=== PATIENT | female | born 1940 | race Caucasian/White ===

== ENCOUNTER 2016-07-29 15:44 | Emergency (ER) | payer OTHER | END 2016-07-29 16:24 | disposition left against medical advice (07) | LOC: CED 15:44 | DX: R10.32 Left lower quadrant pain (principal); Z53.8 Procedure and treatment not carried out for other reasons ==

== ENCOUNTER 2016-07-29 16:40 | Emergency (ER) | payer OTHER ==
[2016-07-29] MEDS ORDERED: NS 1,000 ML IV ONE (16:53)
[2016-07-29 17:24] VITALS: RESP 16
[2016-07-29 17:33] LABS: % IMMATURE GRANULYOCYTES 0.2 % (0.0-1.1); ABSOLUTE IMMATURE GRANULOCYTES 0.02 10^3/uL (0.00-0.10); ADD DIFF? NO; ADD MORPH? NO; ADD SCAN? NO; ATYPICAL LYMPHOCYTE FLAG 0 (0-99); FRAGMENT RBC FLAG 0 (0-99); HEMATOCRIT 36.8 % (38.0-47.0); LEFT SHIFT FLG 0 (0-99); LIPEMIA HEMOLYSIS FLAG 80 (0-99); MEAN CELL HEMOGLOBIN 30.6 pg (27.9-34.1); MEAN CELL HEMOGLOBIN CONCENTR. 32.6 g/dL (32.4-36.7); MEAN CELL VOLUME 93.9 fL (81.5-99.8); MEAN PLATELET VOLUME 9.3 fL (8.7-11.7); PLATELET CLUMPS FLAG 0 (0-99); PLATELET COUNT 426 10^3/uL (150-400); RED BLOOD CELL COUNT 3.92 10^6/uL (4.18-5.33); RED CELL DISTRIBUTION WIDTH 14.9 % (11.5-15.2)
[2016-07-29 17:46] LABS: COLOR YELLOW; LEUKOCYTE ESTERASE,URINE 2+ (NEGATIVE); NITRITE,URINE NEGATIVE (NEGATIVE)
[2016-07-29 17:48] LABS: ALANINE AMINOTRANSFERASE 28 IU/L (9-52); ALBUMIN 3.8 g/dL (3.5-5.0); ALKALINE PHOSPHATASE 85 IU/L (38-126); ANION GAP 14 mEq/L (8-16); ASPARTATE AMINOTRANSFERASE 18 IU/L (14-46); BILIRUBIN,TOTAL 1.2 mg/dL (0.1-1.4); BILIRUBIN-CONJUGATED 0.3 mg/dL (0.0-0.5); BILIRUBIN-UNCONJUGATED 0.9 mg/dL (0.0-1.1); CALCIUM 8.2 mg/dL (8.5-10.4); CARBON DIOXIDE 26 mEq/l (22-31); CHLORIDE 102 mEq/L (97-110); CREATININE 1.4 mg/dL (0.6-1.0); GLOMERULAR FILTRATION RATE 37; GLUCOSE 79 mg/dL (70-100); POTASSIUM 3.7 mEq/L (3.5-5.2); SODIUM 142 mEq/L (134-144); TOTAL PROTEIN 6.4 g/dL (6.3-8.2)
[2016-07-29 17:55] LABS: MUCUS TRACE /lpf (NONE-1+)
--- NOTE | 2016-07-29 18:22 | EDPHY ---
H & P Stated Complaint: lower abd pain x 2 days Time Seen by Provider: 07/29/16 16:52 HPI/ROS: CHIEF COMPLAINT: Lower abdominal pain HISTORY OF PRESENT ILLNESS: The patient presents to the emergency department with a 2 day history of left lower quadrant pain. The patient does report some change in the character of her bowel movements but denies constipation or diarrhea. The patient denies dysuria. She has no complaints of nausea vomiting or fever. She denies having a prior history of the symptoms. The patient does have a history of diabetes. She also reports she has a gastric mass which is being followed as an outpatient by Dr. Hung Powell. She apparently is not felt to be a good surgical candidate secondary to her abdominal obesity and pannus ulcers. The patient denies abnormalities with her prior colonoscopies. The patient reports her pain is mild to moderate in nature. It is worsened with movement and deep palpation. REVIEW OF SYSTEMS: A comprehensive 10 point review of systems is otherwise negative aside from elements mentioned in the history of present illness. Source: Patient Exam Limitations: No limitations - Personal History Current Tetanus/Diphtheria Vaccine: Yes Current Tetanus Diphtheria and Acellular Pertussis (TDAP): Yes Tetanus Vaccine Date: within 10 yrs - Medical/Surgical History Hx Asthma: Yes Hx Chronic Respiratory Disease: No Hx Diabetes: Yes Hx Cardiac Disease: Yes Hx Renal Disease: No Hx Cirrhosis: No Hx Alcoholism: No Hx HIV/AIDS: No Hx Splenectomy or Spleen Trauma: No Other PMH: SEPSIS, CELLULITIS, DIABETES, CHF - Social History Smoking Status: Former smoker - Physical Exam Exam: General Appearance: Alert, no distress Eyes: Pupils equal and round no pallor or injection ENT, Mouth: Mucous membranes moist Respiratory: There are no retractions, lungs are clear to auscultation Cardiovascular: Regular rate and rhythm Gastrointestinal: Tenderness to palpation in the left lower quadrant Neurological: A&O, normal motor function, normal sensory exam, normal cranial nerves Skin: Warm and dry, no rashes Musculoskeletal: Neck is supple nontender Extremities: symmetrical, full range of motion Constitutional: Initial Vital Signs Temperature (C) 36.6 C 07/29/16 16:47 Heart Rate 104 H 07/29/16 16:47 Respiratory Rate 17 07/29/16 16:47 Blood Pressure 88/41 L 07/29/16 16:47 O2 Sat (%) 89 L 07/29/16 16:47 O2 Delivery Mode Room Air Allergies/Adverse Reactions: iodine [Iodine] Allergy (Intermediate, Verified 07/29/16 16:45) UNSURE Penicillins Allergy (Intermediate, Verified 07/29/16 16:45) Rash cephalexin monohydrate [From Keflex] Allergy (Verified 07/29/16 16:45) Home Medications: Medication Instructions Recorded Albuterol Hfa Anes Only [Proair 2 puffs IH BID 10/27/15 Hfa Icu (*)] Atorvastatin Calcium [Lipitor 40 40 mg PO HS 10/27/15 mg (*)] Calcium Carb W/Vit D [Calcium Carb 500 mg PO DAILY 10/27/15 W/Vit D 500/200 (*)] FLUTICASONE/SALMETEROL [ADVAIR HFA 1 puffs IH BID 10/27/15 230-21 MCG INHALER] Furosemide [Lasix 40 MG (*)] 40 mg PO DAILY 10/27/15 Insulin Glargine [Lantus 100 15 - 25 units SC BID 10/27/15 UNITS/ML (*)] Insulin Lispro [Humalog] 0 - 15 units SQ TIDMEAL 10/27/15 Lansoprazole [Prevacid] 30 mg PO BIDMEAL 10/27/15 Metolazone [Zaroxolyn] 2.5 mg PO DAILY 10/27/15 Verapamil ER [[place] SR/ER 180MG 180 mg PO BID 10/27/15 (*)] Warfarin Sodium [Coumadin 5MG (*)] 5 mg PO SUMOWETHSA@16 10/27/15 Warfarin Sodium [Coumadin 5MG (*)] 7.5 mg PO TUFR@16 10/27/15 metFORMIN HCL [Glucophage 500 mg 500 mg PO BIDMEAL 10/27/15 (*)] predniSONE 1 mg PO DAILY 10/27/15 predniSONE 5 mg PO DAILY 10/27/15 Colchicine [Colchicine (*)] 0.6 mg PO BID #60 ea 10/28/15 Hydrocodone/APAP 5/325 [[place] 1 - 2 each PO Q6 PRN #20 tab 07/29/16 5/325] Ondansetron Odt [Zofran Odt] 4 mg PO Q4PRN PRN #20 tab 07/29/16 levOFLOXACIN [Levaquin] 500 mg PO DAILY #10 tablet 07/29/16 metroNIDAZOLE [Flagyl 500 mg (RX)] 500 mg PO TID #30 tab 07/29/16 Medical Decision Making - Diagnostics Imaging: CT abdomen pelvis without contrast: Sigmoid diverticulitis noted, mild in nature, no perforation or obstruction. Study results reported to me by Dr. Darien Sebastian. ED Course/Re-evaluation: The patient presents to the ED with 2 days of left lower quadrant pain. She is afebrile and well-appearing. On exam she had minimal tenderness to palpation in her right lower quadrant. The patient did undergo a CT scan of the abdomen pelvis for evaluation of this symptom. It does demonstrate mild diverticulitis without perforation or abscess. Patient has no evidence of a abdominal aortic aneurysm or other intra-abdominal abnormality. The patient is noted to have some mild pyuria but has no subjective complaints of dysuria or fever. The patient did receive Levaquin and Flagyl in the emergency department. She is currently on Coumadin. The patient would like to treat her symptoms an outpatient. I do feel this is reasonable based upon her CT findings. The patient has been instructed she should return to the ED immediately for increasing pain, inability to tolerate her antibiotics, high fever or other concerns. Additionally, I have asked the patient to follow up with the anticoagulation clinic for a recheck of her INR this week. Differential Diagnosis: Differential diagnosis considered includes diverticulitis, perforation, abscess , abdominal aortic aneurysm, urinary tract infection - Data Points Laboratory Results: Laboratory Results 07/29/16 17:15 07/29/16 17:15 07/29/16 17:15 WBC 8.27 10^3/uL (3.80-9.50) RBC 3.92 L 10^6/uL (4.18-5.33) Hgb 12.0 L g/dL (12.6-16.3) Hct 36.8 L % (38.0-47.0) MCV 93.9 fL (81.5-99.8) MCH 30.6 pg (27.9-34.1) MCHC 32.6 g/dL (32.4-36.7) RDW 14.9 % (11.5-15.2) Plt Count 426 H 10^3/uL (150-400) MPV 9.3 fL (8.7-11.7) Neut % (Auto) 82.6 H % (39.3-74.2) Lymph % (Auto) 9.8 L % (15.0-45.0) [place] % (Auto) 6.7 % (4.5-13.0) Eos % (Auto) 0.5 L % (0.6-7.6) Baso % (Auto) 0.2 L % (0.3-1.7) Nucleat RBC Rel Count 0.0 % (0.0-0.2) Absolute Neuts (auto) 6.83 H 10^3/uL (1.70-6.50) Absolute Lymphs (auto) 0.81 L 10^3/uL (1.00-3.00) Absolute Monos (auto) 0.55 10^3/uL (0.30-0.80) Absolute Eos (auto) 0.04 10^3/uL (0.03-0.40) Absolute Basos (auto) 0.02 10^3/uL (0.02-0.10) Absolute Nucleated RBC 0.00 10^3/uL (0-0.01) Immature Gran % 0.2 % (0.0-1.1) Immature Gran # 0.02 10^3/uL (0.00-0.10) PT Pending INR Pending Sodium 142 mEq/L (134-144) Potassium 3.7 mEq/L (3.5-5.2) Chloride 102 mEq/L (97-110) Carbon Dioxide 26 mEq/l (22-31) Anion Gap 14 mEq/L (8-16) BUN 50 H mg/dL (7-23) Creatinine 1.4 H mg/dL (0.6-1.0) Estimated GFR 37 Glucose 79 mg/dL (70-100) Calcium 8.2 L mg/dL (8.5-10.4) Total Bilirubin 1.2 mg/dL (0.1-1.4) Conjugated Bilirubin 0.3 mg/dL (0.0-0.5) Unconjugated Bilirubin 0.9 mg/dL (0.0-1.1) AST 18 IU/L (14-46) ALT 28 IU/L (9-52) Alkaline Phosphatase 85 IU/L (38-126) Total Protein 6.4 g/dL (6.3-8.2) Albumin 3.8 g/dL (3.5-5.0) Lipase 143.0 IU/L (23-300) Urine Color YELLOW Urine Appearance CLEAR Urine pH 5.0 (5.0-7.5) Ur Specific [place] 1.009 (1.002-1.030) Urine Protein NEGATIVE (NEGATIVE) Urine Ketones NEGATIVE (NEGATIVE) Urine Blood 1+ H (NEGATIVE) Urine Nitrate NEGATIVE (NEGATIVE) Urine Bilirubin NEGATIVE (NEGATIVE) Urine Urobilinogen NEGATIVE EU (0.2-1.0) Ur Leukocyte Esterase 2+ H (NEGATIVE) Urine RBC 1-3 /hpf (0-3) Urine WBC 10-15 H /hpf (0-3) Ur Epithelial Cells TRACE /lpf (NONE-1+) Hyaline Casts 5-15 /lpf (0-1) Urine Mucus TRACE /lpf (NONE-1+) Ur Culture Indicated? INDICATED H (NI) Urine Glucose NEGATIVE (NEGATIVE) Medications Given: Discontinued Medications Sodium Chloride (Ns) 1,000 mls @ 0 mls/hr IV ONCE ONE PRN Reason: Wide Open Stop: 07/29/16 16:54 Last Admin: 07/29/16 18:52 Dose: Not Given Levofloxacin (Levaquin) 500 mg PO EDNOW ONE PRN Reason: Protocol Stop: 07/29/16 18:39 Last Admin: 07/29/16 18:50 Dose: 500 mg Metronidazole (Flagyl) 500 mg PO EDNOW ONE PRN Reason: Protocol Stop: 07/29/16 18:39 Last Admin: 07/29/16 18:50 Dose: 500 mg Departure - Departure Disposition: Home, Routine, Self-Care Clinical Impression: Acute diverticulitis Condition: Good Instructions: Diverticulitis (ED) Additional Instructions: 1. Please take antibiotics as directed. You will be on antibiotics for a total of 10 days. 2. Please return to the ED for worsening pain, high fever, inability to tolerate your antibiotics or other concerns. Sometimes people with diverticulitis to have to be hospitalized for IV therapy. Sometimes diverticulitis can progress to a more serious condition such as an abscess or perforation. We see no evidence of this based upon your CT scan today. However it is imperative you return to the ED immediately for any change or worsening symptoms. 3. Because you are on antibiotics this can affect the level of your warfarin. Please contact the anticoagulation Clinic or your primary care provider Dr. Monica Cade on Saturday or Saturday of this week to make arrangements to have your warfarin level rechecked. 4. Mayer as needed for severe pain. Referrals: Kathrine Cade MD [Primary Care Provider] - As per Instructions Prescriptions: metroNIDAZOLE [Flagyl 500 mg (RX)] 500 mg PO TID #30 tab levOFLOXACIN [Levaquin] 500 mg PO DAILY #10 tablet Hydrocodone/APAP 5/325 [[place] 5/325] 1 - 2 each PO Q6 PRN #20 tab PRN Reason: for pain Ondansetron Odt [Zofran Odt] 4 mg PO Q4PRN PRN #20 tab PRN Reason: For Nausea
--- NOTE | 2016-07-29 18:35 | CT ---
CT Abdomen and Pelvis Without Contrast dated July 29, 2016 Indication: Left lower quadrant pain. Evaluate for appendicitis. Technique: The abdomen and pelvis was scanned with 5-mm thick helically acquired slices without IV or oral contrast. Patient has an IV contrast ALLERGY. Dose reduction techniques were utilized. Comparison: March 27, 2016. Findings: A 10-cm segment of the sigmoid colon has mild concentric wall thickening and pericolonic ed narinder contiguous with numerous sigmoid diverticula. No free fluid, abscess, or pneumoperitoneum. Bowel pattern is otherwise normal. Appendix is normal. No obstruction or adynamic ileus. The noncontrast liver, spleen, pancreas, contracted gallbladder, adrenal glands, and kidneys are norm al. No nephrolithiasis or hydroureteronephrosis. The urinary bladder is nearly completely empty. The uterus is normal size. No adnexal mass. The abdominal aorta is normal caliber with moderate calcified plaque. Extensive visceral arterial alejandro cification is present, indicative of underlying diabetes mellitus. A small umbilical hernia containin g only fat is unchanged since March 2016. Multilevel severe degenerative disk and facet arthropathy. No fracture or bone lesion. Lung bases are clear. Heart size is normal with extensive calcified coronary plaque. Impression: 1. Mild sigmoid diverticulitis. No abscess or evidence of perforation. 2. No intraabdominal mass or lymphadenopathy. 3. Extensive vascular disease. Comment: Results were called to Dr. Willian Bedoya at 1825 hours on July 29, 2016.
[2016-07-29] MEDS ORDERED: metroNIDAZOLE 500 MG TAB PO ONE (18:38)
[2016-07-29 18:51] VITALS: BP 99/67; PULSE 103; O2SAT 96
[2016-07-29 18:59] LABS: INR 2.6 (0.83-1.16); PROTIME(PATIENT) 28.1 SEC (12.0-15.0)
[2016-07-29] MEDS ORDERED: ONDANSETRON 4MG PREPACK#2 BTL TAKEHOME ONE (19:20)
[2016-07-29] MEDS ORDERED: HYDROCOD/APAP 5/325 PREPACK#6 BTL TAKEHOME ONE (19:20)
[2016-07-29 19:28] VITALS: TEMP 98.8
== END 2016-07-29 19:26 | disposition home or self-care (01) ==
DX: K57.92 Diverticulitis of intestine, part unspecified, without perforation or abscess without bleeding (principal); J45.909 Unspecified asthma, uncomplicated; E11.9 Type 2 diabetes mellitus without complications; I50.9 Heart failure, unspecified; Z79.01 Long term (current) use of anticoagulants; Z87.891 Personal history of nicotine dependence; Z79.4 Long term (current) use of insulin

== ENCOUNTER 2016-09-09 15:33 | Emergency (ER) | payer OTHER ==
[2016-09-09 15:45] VITALS: O2SAT 96
[2016-09-09] MEDS ORDERED: NS 1,000 ML IV ONE (16:10)
--- NOTE | 2016-09-09 16:15 | EDPHY ---
H & P Stated Complaint: Diarrhea x 4 days;started after taking colchicine;has hx diverticulitis Time Seen by Provider: 09/09/16 15:55 HPI/ROS: CHIEF COMPLAINT: Diarrhea HISTORY OF PRESENT ILLNESS: The patient is a 76-year-old female who comes to the emergency department complaining of diarrhea for 4 days. She states that she had 5 episodes of diarrhea yesterday. No fever. Nonbloody. She has diabetes as well as atrial fibrillation on Coumadin and morbid obesity. She was seen here 6 weeks ago and diagnosed with diverticulitis and started on Levaquin and Flagyl. Her diverticulitis improved but she states that she had diarrhea for the entire 10 days that she was taking the antibiotics. It resolved after she discontinued them. She has not been vomiting. She denies abdominal pain or chest pain. REVIEW OF SYSTEMS: Constitutional: denies: chills, fever, recent illness, recent injury EENTM: denies: blurred vision, double vision, nose congestion Respiratory: denies: cough, shortness of breath Cardiac: denies: chest pain, irregular heart rate, lightheadedness, palpitations Gastrointestinal/Abdominal: See HPI denies: abdominal pain, nausea, vomiting, blood streaked stools Genitourinary: denies: dysuria, frequency, hematuria, pain Musculoskeletal: denies: joint pain, muscle pain Skin: denies: lesions, rash, jaundice, bruising Neurological: denies: headache, numbness, paresthesia, tingling, dizziness, weakness Hematologic/Lymphatic: denies: blood clots, easy bleeding, easy bruising Immunologic/allergic: denies: HIV/AIDS, transplant EXAM: GENERAL: Very talkative, Well-appearing, morbidly obese and in no acute distress. HEAD: Atraumatic, normocephalic. EYES: Pupils equal round and reactive to light, extraocular movements intact, sclera anicteric, conjunctiva are normal. ENT: TMs normal, nares patent, oropharynx clear without exudates. Moist mucous membranes. NECK: Normal range of motion, supple without lymphadenopathy or JVD. LUNGS: Breath sounds clear to auscultation bilaterally and equal. No wheezes rales or rhonchi. HEART: Regular rate and rhythm without murmurs, rubs or gallops. ABDOMEN: Morbidly obese, diabetic stasis ulcers over pannus, no tenderness on examination BACK: No CVA tenderness, no spinal tenderness, step-offs or deformities EXTREMITIES: Normal range of motion, no pitting or edema. No clubbing or cyanosis. NEUROLOGICAL: Cranial nerves II through XII grossly intact. Normal speech, normal gait. 5/5 strength, normal movement in all extremities, normal sensation PSYCH: Normal mood, normal affect. SKIN: Warm, dry, normal turgor, no visible rashes or lesions several small diabetic type ulcers in her pannus, Well cared for. Source: Patient Exam Limitations: No limitations - Personal History Current Tetanus Diphtheria and Acellular Pertussis (TDAP): Yes Tetanus Vaccine Date: within 10 yrs - Medical/Surgical History Hx Asthma: Yes Hx Chronic Respiratory Disease: No Hx Diabetes: Yes Hx Cardiac Disease: Yes Hx Renal Disease: No Hx Cirrhosis: No Hx Alcoholism: No Hx HIV/AIDS: No Hx Splenectomy or Spleen Trauma: No Other PMH: SEPSIS, CELLULITIS, DIABETES, CHF. obesity, gout, diverticulitis - Family History Significant Family History: No pertinent family hx - Social History Smoking Status: Never smoked Alcohol Use: None Drug Use: None Constitutional: Initial Vital Signs Temperature (C) 36.8 C 09/09/16 15:37 Heart Rate 58 L 09/09/16 15:37 Respiratory Rate 18 09/09/16 15:37 Blood Pressure 118/91 H 09/09/16 15:37 O2 Sat (%) 96 09/09/16 15:37 O2 Delivery Mode Room Air Allergies/Adverse Reactions: iodine [Iodine] Allergy (Intermediate, Verified 09/09/16 15:37) UNSURE Penicillins Allergy (Intermediate, Verified 09/09/16 15:37) Rash cephalexin monohydrate [From Keflex] Allergy (Verified 09/09/16 15:37) Home Medications: Medication Instructions Recorded Albuterol Hfa Anes Only [Proair 2 puffs IH BID 10/27/15 Hfa Icu (*)] Atorvastatin Calcium [Lipitor 40 40 mg PO HS 10/27/15 mg (*)] Calcium Carb W/Vit D [Calcium Carb 500 mg PO DAILY 10/27/15 W/Vit D 500/200 (*)] FLUTICASONE/SALMETEROL [ADVAIR HFA 1 puffs IH BID 10/27/15 230-21 MCG INHALER] Furosemide [Lasix 40 MG (*)] 40 mg PO DAILY 10/27/15 Insulin Glargine [Lantus 100 15 - 25 units SC BID 10/27/15 UNITS/ML (*)] Insulin Lispro [Humalog] 0 - 15 units SQ TIDMEAL 10/27/15 Lansoprazole [Prevacid] 30 mg PO BIDMEAL 10/27/15 Metolazone [Zaroxolyn] 2.5 mg PO DAILY 10/27/15 Verapamil ER [Calan SR/ER 180MG 180 mg PO BID 10/27/15 (*)] Warfarin Sodium [Coumadin 5MG (*)] 5 mg PO SUMOWETHSA@16 10/27/15 Warfarin Sodium [Coumadin 5MG (*)] 7.5 mg PO TUFR@16 10/27/15 metFORMIN HCL [Glucophage 500 mg 500 mg PO BIDMEAL 10/27/15 (*)] predniSONE 1 mg PO DAILY 10/27/15 predniSONE 5 mg PO DAILY 10/27/15 Colchicine [Colchicine (*)] 0.6 mg PO BID #60 ea 10/28/15 Hydrocodone/APAP 5/325 [[place] 1 - 2 each PO Q6 PRN #20 tab 07/29/16 5/325] Ondansetron Odt [Zofran Odt] 4 mg PO Q4PRN PRN #20 tab 07/29/16 levOFLOXACIN [Levaquin] 500 mg PO DAILY #10 tablet 07/29/16 metroNIDAZOLE [Flagyl 500 mg (RX)] 500 mg PO TID #30 tab 07/29/16 Medical Decision Making ED Course/Re-evaluation: The patient feels much better. She has not yet been able to have a bowel movement here in the emergency department. Her lab work is reassuring. Her abdominal exam remains benign. She is afebrile. White blood cell count is normal. She does appear slightly dehydrated but has received IV fluids. She is eager to go home. We have given her instructions for collecting stool sample at home. She will follow up tomorrow with her regular doctor as planned. The patient was able to provide a stool sample here. We will send to the lab. Otherwise she is eager to leave. We discussed indications for returning. Differential Diagnosis: Partial list of the Differential diagnosis considered include but were not limited to; diarrhea, C difficile and although unlikely based on the history and physical exam, I also considered obstruction, ischemia, diverticulitis, hemorrhage. I discussed these differential diagnoses and the plan with the patient as well as the usual and expected course. The patient understands that the diagnosis is provisional and that in medicine we are not always correct and that further workup is often warranted. Usual and customary warnings were given. All of the patient's questions were answered. The patient was instructed to return to the emergency department should the symptoms at all worsen or return, otherwise to followup with the physician as we discussed. - Data Points Laboratory Results: Laboratory Results 09/09/16 16:50 09/09/16 16:50 09/09/16 09/09/16 09/09/16 16:50 16:50 16:50 WBC 5.86 10^3/uL 10^3/uL (3.80-9.50) RBC 4.11 10^6/uL L 10^6/uL (4.18-5.33) Hgb 12.7 g/dL g/dL (12.6-16.3) Hct 38.8 % % (38.0-47.0) MCV 94.4 fL fL (81.5-99.8) MCH 30.9 pg pg (27.9-34.1) MCHC 32.7 g/dL g/dL (32.4-36.7) RDW 15.4 % H % (11.5-15.2) Plt Count 433 10^3/uL H 10^3/uL (150-400) MPV 9.2 fL fL (8.7-11.7) Neut % (Auto) 72.8 % % (39.3-74.2) Lymph % (Auto) 17.1 % % (15.0-45.0) [place] % (Auto) 8.4 % % (4.5-13.0) Eos % (Auto) 0.9 % % (0.6-7.6) Baso % (Auto) 0.5 % % (0.3-1.7) Nucleat RBC Rel Count 0.0 % % (0.0-0.2) Absolute Neuts (auto) 4.27 10^3/uL 10^3/uL (1.70-6.50) Absolute Lymphs (auto) 1.00 10^3/uL 10^3/uL (1.00-3.00) Absolute Monos (auto) 0.49 10^3/uL 10^3/uL (0.30-0.80) Absolute Eos (auto) 0.05 10^3/uL 10^3/uL (0.03-0.40) Absolute Basos (auto) 0.03 10^3/uL 10^3/uL (0.02-0.10) Absolute Nucleated RBC 0.00 10^3/uL 10^3/uL (0-0.01) Immature Gran % 0.3 % % (0.0-1.1) Immature Gran # 0.02 10^3/uL 10^3/uL (0.00-0.10) PT 33.3 SEC H SEC (12.0-15.0) INR 3.21 H (0.83-1.16) APTT 36.0 SEC SEC (23.0-38.0) Sodium 142 mEq/L mEq/L (134-144) Potassium 3.6 mEq/L mEq/L (3.5-5.2) Chloride 106 mEq/L mEq/L (97-110) Carbon Dioxide 23 mEq/l mEq/l (22-31) Anion Gap 13 mEq/L mEq/L (8-16) BUN 36 mg/dL H mg/dL (7-23) Creatinine 1.3 mg/dL H mg/dL (0.6-1.0) Estimated GFR 40 Glucose 156 mg/dL H mg/dL (70-100) Calcium 8.7 mg/dL mg/dL (8.5-10.4) Total Bilirubin 1.0 mg/dL mg/dL (0.1-1.4) Conjugated Bilirubin 0.4 mg/dL mg/dL (0.0-0.5) Unconjugated Bilirubin 0.6 mg/dL mg/dL (0.0-1.1) AST 20 IU/L IU/L (14-46) ALT 32 IU/L IU/L (9-52) Alkaline Phosphatase 90 IU/L IU/L (38-126) Total Protein 6.2 g/dL L g/dL (6.3-8.2) Albumin 3.4 g/dL L g/dL (3.5-5.0) Lipase 115.0 IU/L IU/L (23-300) Medications Given: Discontinued Medications Sodium Chloride (Ns) 1,000 mls @ 0 mls/hr IV ONCE ONE PRN Reason: Wide Open Stop: 09/09/16 16:11 Last Admin: 09/09/16 16:53 Dose: 1,000 mls Departure - Departure Disposition: Home, Routine, Self-Care Clinical Impression: Diarrhea Qualifiers: Diarrhea type: unspecified type Qualified Code(s): R19.7 - Diarrhea, unspecified Condition: Fair Instructions: Acute Diarrhea (ED) Additional Instructions: Bring a stool sample back for analysis as instructed. Referrals: Kathrine Cade MD [Primary Care Provider] - As per Instructions
[2016-09-09 16:57] LABS: % IMMATURE GRANULYOCYTES 0.3 % (0.0-1.1); ABSOLUTE IMMATURE GRANULOCYTES 0.02 10^3/uL (0.00-0.10); ADD DIFF? NO; ADD MORPH? NO; ADD SCAN? NO; ATYPICAL LYMPHOCYTE FLAG 10 (0-99); FRAGMENT RBC FLAG 0 (0-99); HEMATOCRIT 38.8 % (38.0-47.0); HEMOGLOBIN 12.7 g/dL (12.6-16.3); LEFT SHIFT FLG 0 (0-99); LIPEMIA HEMOLYSIS FLAG 80 (0-99); MEAN CELL HEMOGLOBIN 30.9 pg (27.9-34.1); MEAN CELL HEMOGLOBIN CONCENTR. 32.7 g/dL (32.4-36.7); MEAN CELL VOLUME 94.4 fL (81.5-99.8); MEAN PLATELET VOLUME 9.2 fL (8.7-11.7); PLATELET CLUMPS FLAG 10 (0-99); PLATELET COUNT 433 10^3/uL (150-400); RED BLOOD CELL COUNT 4.11 10^6/uL (4.18-5.33); RED CELL DISTRIBUTION WIDTH 15.4 % (11.5-15.2)
[2016-09-09 17:16] LABS: INR 3.21 (0.83-1.16); PROTIME(PATIENT) 33.3 SEC (12.0-15.0)
[2016-09-09 17:22] LABS: ALANINE AMINOTRANSFERASE 32 IU/L (9-52); ALBUMIN 3.4 g/dL (3.5-5.0); ALKALINE PHOSPHATASE 90 IU/L (38-126); ANION GAP 13 mEq/L (8-16); ASPARTATE AMINOTRANSFERASE 20 IU/L (14-46); BILIRUBIN-CONJUGATED 0.4 mg/dL (0.0-0.5); BILIRUBIN-UNCONJUGATED 0.6 mg/dL (0.0-1.1); CALCIUM 8.7 mg/dL (8.5-10.4); CARBON DIOXIDE 23 mEq/l (22-31); CHLORIDE 106 mEq/L (97-110); CREATININE 1.3 mg/dL (0.6-1.0); GLOMERULAR FILTRATION RATE 40; GLUCOSE 156 mg/dL (70-100); POTASSIUM 3.6 mEq/L (3.5-5.2); SODIUM 142 mEq/L (134-144); TOTAL PROTEIN 6.2 g/dL (6.3-8.2)
[2016-09-09 18:46] VITALS: BP 123/89; PULSE 86; RESP 20; TEMP 98.6
== END 2016-09-09 18:36 | disposition home or self-care (01) ==
DX: R19.7 Diarrhea, unspecified (principal); J45.909 Unspecified asthma, uncomplicated; E11.9 Type 2 diabetes mellitus without complications; I50.9 Heart failure, unspecified; Z79.4 Long term (current) use of insulin; Z79.01 Long term (current) use of anticoagulants

== ENCOUNTER 2016-11-02 15:13 | Inpatient (IN) | payer OTHER ==
--- NOTE | 2016-11-02 15:30 | EDPHY ---
H & P Stated Complaint: Weakness x 2 weeks and ab pain Source: Patient, Family - Personal History Current Tetanus Diphtheria and Acellular Pertussis (TDAP): Yes Tetanus Vaccine Date: within 10 yrs - Medical/Surgical History Hx Asthma: Yes Hx Chronic Respiratory Disease: No Hx Diabetes: Yes Hx Cardiac Disease: Yes Hx Renal Disease: No Hx Cirrhosis: No Hx Alcoholism: No Hx HIV/AIDS: No Hx Splenectomy or Spleen Trauma: No Other PMH: SEPSIS, CELLULITIS, DIABETES, CHF. obesity, gout, diverticulitis - Social History Smoking Status: Never smoked Time Seen by Provider: 11/02/16 15:29 HPI/ROS: CHIEF COMPLAINT: Weakness, diarrhea HISTORY OF PRESENT ILLNESS: This is a 76-year-old female presenting to the emergency department complaining of generalized weakness and diarrhea x2 weeks. Patient also reports she has been dealing with these chronic abdominal wounds without healing, now has drainage and a foul smell. Patient states she has had a decrease in PO intake, she was on Flagyl few weeks ago for diverticulitis flare. Denies any chest pain or shortness of breath REVIEW OF SYSTEMS: Constitutional: Fever Eyes: No visual changes ENT: No sore throat Respiratory: No shortness of breath Cardiac: No chest pain Gastrointestinal: as above Genitourinary: No difficulty hearing with urination Musculoskeletal: No back pain Skin: No rash, chronic abdominal wounds without healing Neurological: No headache or dizziness (Hilda Guerrero) - Physical Exam Exam: General Appearance: Alert, no distress. Eyes: Pupils equal and round no pallor or injection. ENT, Mouth: Mucous membranes moist. Respiratory: There are no retractions, lungs are clear to auscultation. Cardiovascular: Regular rate and rhythm. Gastrointestinal: Abdomen is soft, tenderness left lower quadrant right lower quadrant to opened wounds nonhealing erythema warm to touch malodorous drainage bowel sounds hyperactive Neurological: No focal deficit Skin: Warm and dry, no rashes. Musculoskeletal: Neck is supple nontender. Extremities: symmetrical, full range of motion. Psychiatric: Patient is oriented X 3, there is no agitation. (Hilda Guerrero) Constitutional: Initial Vital Signs Temperature (C) 38.0 C 11/02/16 15:14 Heart Rate 120 H 11/02/16 15:14 Respiratory Rate 14 11/02/16 15:14 Blood Pressure 107/88 H 11/02/16 15:14 O2 Sat (%) 92 04/14/17 15:14 O2 Delivery Mode Room Air Allergies/Adverse Reactions: iodine [Iodine] Allergy (Intermediate, Verified 09/09/16 15:37) UNSURE Penicillins Allergy (Intermediate, Verified 09/09/16 15:37) Rash cephalexin monohydrate [From Keflex] Allergy (Verified 09/09/16 15:37) Home Medications: Medication Instructions Recorded Albuterol Hfa Anes Only [Proair 2 puffs IH BID 10/27/15 Hfa Icu (*)] Atorvastatin Calcium [Lipitor 40 40 mg PO HS 10/27/15 mg (*)] Calcium Carb W/Vit D [Calcium Carb 500 mg PO DAILY 10/27/15 W/Vit D 500/200 (*)] FLUTICASONE/SALMETEROL [ADVAIR HFA 1 puffs IH BID 10/27/15 230-21 MCG INHALER] Furosemide [Lasix 40 MG (*)] 40 mg PO DAILY 10/27/15 Insulin Glargine [Lantus 100 15 - 25 units SC BID 10/27/15 UNITS/ML (*)] Insulin Lispro [Humalog] 0 - 15 units SQ TIDMEAL 10/27/15 Lansoprazole [Prevacid] 30 mg PO BIDMEAL 10/27/15 Metolazone [Zaroxolyn] 2.5 mg PO DAILY 10/27/15 Verapamil ER [Calan SR/ER 180MG 180 mg PO BID 10/27/15 (*)] Warfarin Sodium [Coumadin 5MG (*)] 5 mg PO SUMOWETHSA@16 10/27/15 Warfarin Sodium [Coumadin 5MG (*)] 7.5 mg PO TUFR@16 10/27/15 metFORMIN HCL [Glucophage 500 mg 500 mg PO BIDMEAL 10/27/15 (*)] predniSONE 1 mg PO DAILY 10/27/15 predniSONE 5 mg PO DAILY 10/27/15 Colchicine [Colchicine (*)] 0.6 mg PO BID #60 ea 10/28/15 Hydrocodone/APAP 5/325 [[place] 1 - 2 each PO Q6 PRN #20 tab 07/29/16 5/325] Ondansetron Odt [Zofran Odt] 4 mg PO Q4PRN PRN #20 tab 07/29/16 levOFLOXACIN [Levaquin] 500 mg PO DAILY #10 tablet 07/29/16 metroNIDAZOLE [Flagyl 500 mg (RX)] 500 mg PO TID #30 tab 07/29/16 Medical Decision Making - Diagnostics Imaging: Imaging Impressions Chest X-Ray 11/02/16 15:35 Impression: Moderate cardiac enlargement and central bronchitis. No acute abnormality. Abdomen/Pelvis CT 11/02/16 16:14 Impression: 1. Cellulitis and superficial wounds of the incompletely included large pendulous abdominal pannus. No evidence of abscess on the included images. If clinically indicated, additional images of the lower pannus could be obtained. 2. Chronic atherosclerotic disease. Results discussed with Hilda Guerrero at 4:48 PM. General information for patients regarding this examination can be found at [email or web address]. If you have questions or comments about this report, please contact me at (hospital) or [phone] (cell). Pelvis CT 11/02/16 16:58 Impression: 1. No abscess or fluid collection within the pannus. 2. Extensive cellulitis of the pannus with two shallow ulcers along the right and left low aspects of the pannus. Findings discussed with Emergency Department physician, Francisco J Valdivia MD at 1730 hours November 02, 2016. ED Course/Re-evaluation: 1732: I did see and evaluate this patient this patient is septic. Elevated white count, borderline blood pressure, tachycardic an obvious source of panniculitis with abdominal wounds. CT scan does not show intra-abdominal abscess. She is being resuscitated appropriately here in emergency room lactic is 2.1 initial. She is getting 2600 cc of fluid which is 30 cc/kilogram broad- spectrum antibiotics which includes IV vancomycin and IV Flagyl. She also has dehydrated clinically. He has had diarrhea. I have ordered stool studies. I am managing this patient with Hilda. Patient getting sepsis resuscitation. She will need to go to the step-down unit. She does not require IV pressors at this time. Getting fluid resuscitation broad-spectrum antibiotics trending lactic. Final diagnosis sepsis, panniculitis, chronic abdominal wounds, possible bacteremia, dehydration, tachycardia, acute febrile illness. (Francisco J Valdivia) Discussed plan of care with patient: IV fluids for sepsis, CBC, Chem 7, lactic acid, blood cultures, stool studies, CT abdominal pelvis without contrast due to patient's allergies 1650: Spoke with Dr. Ledezma CT needs to repeat imaging for pannus to rule out any abscess 1655: Spoke with CT control room to re-scanned patient 1730: Consulted with Dr. Valdivia on patient care. CT scan did not show any abscess but panniculitis. Patient will be admitted (Hilda Guerrero) Differential Diagnosis: Differential diagnosis considered but not limited to abdominal abscess, peritonitis and (Hilda Guerrero) - Data Points Laboratory Results: Laboratory Results 11/02/16 15:35 11/02/16 15:35 11/02/16 11/02/16 11/02/16 15:35 15:35 15:35 WBC RBC Hgb Hct MCV MCH MCHC RDW Plt Count MPV Neut % (Auto) Lymph % (Auto) Labette % (Auto) Eos % (Auto) Baso % (Auto) Nucleat RBC Rel Count Absolute Neuts (auto) Absolute Lymphs (auto) Absolute Monos (auto) Absolute Eos (auto) Absolute Basos (auto) Absolute Nucleated RBC Immature Gran % Immature Gran # PT 31.1 SEC H SEC (12.0-15.0) INR 2.95 H (0.83-1.16) APTT 42.8 SEC H SEC (23.0-38.0) VBG Lactic Acid 2.1 mmol/L mmol/L (0.7-2.1) Sodium 136 mEq/L mEq/L (134-144) Potassium 4.1 mEq/L mEq/L (3.5-5.2) Chloride 104 mEq/L mEq/L (97-110) Carbon Dioxide 20 mEq/l L mEq/l (22-31) Anion Gap 12 mEq/L mEq/L (8-16) BUN 28 mg/dL H mg/dL (7-23) Creatinine 1.4 mg/dL H mg/dL (0.6-1.0) Estimated GFR 37 Glucose 157 mg/dL H mg/dL (70-100) Calcium 8.0 mg/dL L mg/dL (8.5-10.4) Total Bilirubin 1.4 mg/dL mg/dL (0.1-1.4) 11/02/16 15:35 WBC 13.70 10^3/uL H 10^3/uL (3.80-9.50) RBC 3.42 10^6/uL L 10^6/uL (4.18-5.33) Hgb 10.1 g/dL L g/dL (12.6-16.3) Hct 31.4 % L % (38.0-47.0) MCV 91.8 fL fL (81.5-99.8) MCH 29.5 pg pg (27.9-34.1) MCHC 32.2 g/dL L g/dL (32.4-36.7) RDW 16.3 % H % (11.5-15.2) Plt Count 251 10^3/uL 10^3/uL (150-400) MPV 9.7 fL fL (8.7-11.7) Neut % (Auto) 90.8 % H % (39.3-74.2) Lymph % (Auto) 4.1 % L % (15.0-45.0) Labette % (Auto) 4.5 % % (4.5-13.0) Eos % (Auto) 0.0 % L % (0.6-7.6) Baso % (Auto) 0.1 % L % (0.3-1.7) Nucleat RBC Rel Count 0.0 % % (0.0-0.2) Absolute Neuts (auto) 12.44 10^3/uL H 10^3/uL (1.70-6.50) Absolute Lymphs (auto) 0.56 10^3/uL L 10^3/uL (1.00-3.00) Absolute Monos (auto) 0.61 10^3/uL 10^3/uL (0.30-0.80) Absolute Eos (auto) 0.00 10^3/uL L 10^3/uL (0.03-0.40) Absolute Basos (auto) 0.02 10^3/uL 10^3/uL (0.02-0.10) Absolute Nucleated RBC 0.00 10^3/uL 10^3/uL (0-0.01) Immature Gran % 0.5 % % (0.0-1.1) Immature Gran # 0.07 10^3/uL 10^3/uL (0.00-0.10) PT INR APTT VBG Lactic Acid Sodium Potassium Chloride Carbon Dioxide Anion Gap BUN Creatinine Estimated GFR Glucose Calcium Total Bilirubin Microbiology Results: MICROBIOLOGY 11/02/16 15:30 Abdomen - Swab Gram Stain - Final Medications Given: Discontinued Medications Acetaminophen (Tylenol) 1,000 mg PO EDNOW ONE Stop: 11/02/16 15:50 Last Admin: 11/02/16 15:59 Dose: 1,000 mg Sodium Chloride (Ns) 2,600 mls @ 5,200 mls/hr 30 ml/kg infuse over 30 min ( 2600 ml) IV EDNOW ONE Stop: 11/02/16 16:11 Last Admin: 11/02/16 15:44 Dose: 2,600 mls Vancomycin HCl 1.5 gm/ (Dextrose) 250 mls @ 166.67 mls/hr IV EDNOW ONE PRN Reason: Protocol Stop: 11/02/16 17:15 Last Admin: 11/02/16 16:22 Dose: 250 mls Metronidazole/Sodium Chloride (Flagyl 500 Mg (Premix)) 100 mls @ 100 mls/hr IV EDNOW ONE PRN Reason: Protocol Stop: 11/02/16 18:19 Last Admin: 11/02/16 18:10 Dose: 100 mls Morphine Sulfate (Morphine) 2 mg IVP EDNOW ONE Stop: 11/02/16 16:48 Last Admin: 11/02/16 17:01 Dose: 2 mg Departure - Departure Disposition: [facility] Acute Clinical Impression: Sepsis Qualifiers: Sepsis type: sepsis due to unspecified organism Qualified Code(s): A41.9 - Sepsis, unspecified organism Condition: Fair
[2016-11-02] MEDS ORDERED: NS 2,600 ML IV ONE (15:42)
[2016-11-02] MEDS ORDERED: VANCOMYCIN 1.5 GM in D5W 250 ML IV ONE (15:46)
[2016-11-02] MEDS ORDERED: ACETAMINOPHEN 500 MG TAB PO ONE (15:49)
[2016-11-02 15:50] LABS: % IMMATURE GRANULYOCYTES 0.5 % (0.0-1.1); ABSOLUTE IMMATURE GRANULOCYTES 0.07 10^3/uL (0.00-0.10); ADD DIFF? NO; ADD MORPH? NO; ADD SCAN? NO; ATYPICAL LYMPHOCYTE FLAG 0 (0-99); FRAGMENT RBC FLAG 0 (0-99); HEMATOCRIT 31.4 % (38.0-47.0); HEMOGLOBIN 10.1 g/dL (12.6-16.3); LEFT SHIFT FLG 80 (0-99); LIPEMIA HEMOLYSIS FLAG 80 (0-99); MEAN CELL HEMOGLOBIN 29.5 pg (27.9-34.1); MEAN CELL HEMOGLOBIN CONCENTR. 32.2 g/dL (32.4-36.7); MEAN CELL VOLUME 91.8 fL (81.5-99.8); MEAN PLATELET VOLUME 9.7 fL (8.7-11.7); PLATELET CLUMPS FLAG 0 (0-99); PLATELET COUNT 251 10^3/uL (150-400); RED BLOOD CELL COUNT 3.42 10^6/uL (4.18-5.33); RED CELL DISTRIBUTION WIDTH 16.3 % (11.5-15.2)
[2016-11-02 16:06] LABS: ANION GAP 12 mEq/L (8-16); BILIRUBIN,TOTAL 1.4 mg/dL (0.1-1.4); CARBON DIOXIDE 20 mEq/l (22-31); CHLORIDE 104 mEq/L (97-110); CREATININE 1.4 mg/dL (0.6-1.0); GLOMERULAR FILTRATION RATE 37; GLUCOSE 157 mg/dL (70-100); POTASSIUM 4.1 mEq/L (3.5-5.2); SODIUM 136 mEq/L (134-144)
[2016-11-02 16:09] LABS: APTT 42.8 SEC (23.0-38.0); INR 2.95 (0.83-1.16); PROTIME(PATIENT) 31.1 SEC (12.0-15.0)
[2016-11-02 16:43] LABS: LACGHOST ORDER
[2016-11-02] MEDS ORDERED: ONDANSETRON 4 MG/2 ML VIAL IVP PRN (20:21)
[2016-11-02] MEDS ORDERED: PROMETHAZINE HCL 25 MG TAB PO PRN (20:21)
[2016-11-02] MEDS ORDERED: HYDROmorphONE/DILAUDID 1 MG/ML SYR IVP PRN (20:21)
[2016-11-02] MEDS ORDERED: ONDANSETRON DISINTEGRATING 4 MG TAB PO PRN (20:21)
[2016-11-02] MEDS ORDERED: LORazepam 0.5 MG TAB PO PRN (20:21)
[2016-11-02] MEDS ORDERED: COLCHICINE 0.6 MG CAP/TAB PO PRN (20:26)
[2016-11-02] MEDS ORDERED: D50W 25 GM/50 ML SYR IVP PRN (20:28)
[2016-11-02] MEDS: oxyCODONE IR 5 MG TAB PO PRN ×2 (20:58→23:17)
[2016-11-02] MEDS: ATORVASTATIN CALCIUM 40 MG TAB PO SCH (20:58)
[2016-11-02] MEDS: INSULIN GLARGINE 100 UNITS/ML SYRINGE SC SCH (21:13)
[2016-11-02 21:56] LABS: COLOR AMBER; LEUKOCYTE ESTERASE,URINE 2+ (NEGATIVE); NITRITE,URINE NEGATIVE (NEGATIVE)
[2016-11-02 22:04] LABS: BACTERIA 2+ /hpf (NONE SEEN); MUCUS TRACE /lpf (NONE-1+); WBC,URINE 50-182 /hpf (0-3)
--- NOTE | 2016-11-02 23:04 | GCON ---
[f rep st] CONSULTATION DATE OF CONSULTATION: 11/02/2016 CHIEF COMPLAINT: Abdominal wounds, weakness, and fevers. HISTORY: This is a 76-year-old female with a past medical history of diabetes, morbid obesity, and panniculitis with chronic abdominal wounds followed by Dr. Umesh Seay, who presents with generalize d weakness, subjective fevers and chills, and generalized malaise for about 2 weeks. The patient no ty this is in the setting of having worsening issues with her chronic abdominal wounds. She is fol lowed by Dr. Seay and has recently undergone treatment with a wound VAC. Apparently she has had su ral courses with wound VACs, most recently completed a 5-day course yesterday. She noted that there was something unusual about the placement of this wound VAC and that seem to be too tight and never really felt quite right. She notes that the wound has been very strong smelling and that she has n ow significant redness surrounding the wound which is not been present in the past. She states that the last time she saw Dr. Seay he felt as if the wounds were healing nicely. She has also had diarr hea for about the last 2 weeks without any abdominal pain or nausea. She recently had similar sympt oms related to diverticulitis and had been on Flagyl at that time. PAST MEDICAL HISTORY: Includes. 1. Diabetes. 2. Morbid obesity. 3. Chronic abdominal wounds in the setting of chronic panniculitis. 4. History of DVT on anticoagulation. 5. Paroxysmal AFib. 6. Severe COPD, steroid dependent. 7. Coronary artery disease. 8. Gout. 9. Chronic kidney disease. FAMILY HISTORY: Parents are . SOCIAL HISTORY: The patient is . She is living independently. She has a prior history of s moking, not for many years. She denies alcohol or illicits. REVIEW OF SYSTEMS: A 10-point review of systems was obtained and was negative except as per HPI. MEDICATIONS: Include. 1. Prednisone. 2. Metformin. 3. Warfarin. 4. Verapamil. 5. Metolazone. 6. Lansoprazole. 7. Insulin. 8. Lasix. 9. Advair. 10. Colchicine. 11. Calcium. 12. Atorvastatin. 13. Albuterol. ALLERGIES: Include penicillin and cephalosporins. PHYSICAL EXAM: VITAL SIGNS: BP 119/62, heart rate 117 respiratory rate 20, O2 saturations 99% on r oom air, temperature is 36.8. GENERAL APPEARANCE: This is an obese female. She is awake and alert. She is in no acute distress. EYES: Anicteric. HEENT: Oropharynx is clear. The alicia ent has a very large neck. CARDIOVASCULAR: Tachycardic, regular, no MRG. PULMONARY: Decreased br eath sounds secondary to body habitus, normal work of breathing. ABDOMEN: Obese, soft, nontender. There is a confluent area of erythema with 2 deep ulcerations in her lower abdominal region with pu rulent discharge and induration surrounding the wounds. EXTREMITIES: Trace bilateral lower extremi ty edema. SKIN: Other than abdominal exam as above, warm, dry, well perfused. NEURO/PSYCH: Orien zack, appropriate, pleasant. CLINICAL DATA: White blood cell count of 13.7, hematocrit of 31.4, platelets of 251. INR is 2.95. Creatinine of 1.4 which is essentially baseline. Glucose of 157. Urinalysis showing 2+ leukocyte esterase, 50-180 white blood cells, 2+ epithelial cells. IMAGING: Chest x-ray, personally reviewed and interpreted, showing a bronchitis without any acute a bnormalities. Abdominal and pelvic CT showing cellulitis and superficial wounds of the incompletely included large pendulous abdominal pannus without evidence of abscess. ASSESSMENT AND PLAN: This is a 76-year-old female with a past medical history of diabetes, morbid o besity, and panniculitis with chronic abdominal wounds, presenting with sepsis and cellulitis. 1. Sepsis. Patient meeting systemic inflammatory response syndrome criteria with leukocytosis, tac hycardia, and fevers at home with source noted to be cellulitis surrounding chronic abdominal wounds . She is hemodynamically stable. Her lactic acid level was within normal limits. She does not hav e evidence of end-organ dysfunction. She had been started on appropriate antibiotics as per number next. 2. Chronic abdominal wounds with associated cellulitis. The patient with 2 chronic abdominal wound s in the setting of chronic panniculitis with surrounding cellulitis and purulent discharge. She main s been started on vancomycin and wound cultures have been obtained. She is followed by Dr. Seay who has been consulted. Wound Care also consulted. She recently discontinued a wound VAC to this area. Infectious Disease will be consulted in the morning as well. There is no evidence of abscess on a bdominal CT and will hold off on coverage for gram-negative and anaerobes for the time being. 3. Diarrhea. The patient has had diarrhea for about the last 2 weeks. A GI pathogen panel has bee n sent. In discussion with the patient, she states that the diarrhea has actually improved. She main s not had a bowel movement since yesterday. She was given one dose of Flagyl in the emergency depar tment. She has recently completed a course of Flagyl prior to admission. 4. Chronic kidney disease. This is stable and at baseline. Will continue to monitor. 5. Diabetes. Will continue her insulin glargine with additional sliding scale. She is on low-dose metformin at home which we will hold for the time being. 6. Hypotension. This is in the setting of sepsis and has improved post fluid resuscitation. She i s on Lasix and metolazone, as well as verapamil at home, and we will hold her diuretics for now give n her hypotension. 7. Congestive heart failure. I do not have access to prior echocardiogram. Suspect she has mostly right-sided failure in the setting of presumed obstructive sleep apnea and orthostatic hypotension. She is on diuretics chronically. Again, these are being held for hypotension. 8. Atrial fibrillation. We will continue her verapamil. On personal review of telemetry, she does appear to be in sinus tachycardia with frequent premature ventricular contractions. 9. Morbid obesity. Recommending lifestyle modification. 10. Chronic obstructive pulmonary disease. She is chronically steroid dependent. She is doing wel l currently on room air. We will continue her usual medications and p.r.n. bronchodilators if neede d. 11. Code status. This was reviewed with the patient and her . She would like to be full co de for now. She did mention that she has not really thought about this much in the past, however. 12. The patient is new to my care. Old records reviewed, summarized as per HPI and past medical hi story. Care plan reviewed with ER physician, including plans for step-down admission and antibiotic therapy. The patient will be inpatient status given her high-risk presenting issues requiring clos e monitoring, IV antibiotics, and surgical evaluation. /[id number]/MODL
[2016-11-02] MEDS: FLUTICASONE IH SCH (23:19)
[2016-11-02] MEDS: SALMETEROL IH SCH (23:19)
[2016-11-03 05:53] LABS: % IMMATURE GRANULYOCYTES 0.8 % (0.0-1.1); ABSOLUTE IMMATURE GRANULOCYTES 0.11 10^3/uL (0.00-0.10); ADD DIFF? NO; ADD MORPH? NO; ADD SCAN? NO; ATYPICAL LYMPHOCYTE FLAG 0 (0-99); FRAGMENT RBC FLAG 0 (0-99); HEMATOCRIT 28.4 % (38.0-47.0); HEMOGLOBIN 8.9 g/dL (12.6-16.3); LEFT SHIFT FLG 40 (0-99); LIPEMIA HEMOLYSIS FLAG 80 (0-99); MEAN CELL HEMOGLOBIN 29.6 pg (27.9-34.1); MEAN CELL HEMOGLOBIN CONCENTR. 31.3 g/dL (32.4-36.7); MEAN CELL VOLUME 94.4 fL (81.5-99.8); MEAN PLATELET VOLUME 9.8 fL (8.7-11.7); PLATELET CLUMPS FLAG 0 (0-99); PLATELET COUNT 207 10^3/uL (150-400); RED BLOOD CELL COUNT 3.01 10^6/uL (4.18-5.33); RED CELL DISTRIBUTION WIDTH 16.4 % (11.5-15.2)
[2016-11-03 06:33] LABS: ANION GAP 5 mEq/L (8-16); CALCIUM 7.3 mg/dL (8.5-10.4); CARBON DIOXIDE 19 mEq/l (22-31); CHLORIDE 112 mEq/L (97-110); GLOMERULAR FILTRATION RATE 54; GLUCOSE 102 mg/dL (70-100); MAGNESIUM 1.1 mg/dL (1.6-2.3); POTASSIUM 4.1 mEq/L (3.5-5.2); SODIUM 136 mEq/L (134-144)
[2016-11-03] MEDS ORDERED: PROTOCOL MAGNESIUM 1 DOSE IV PRN (07:05)
[2016-11-03] MEDS ORDERED: PROTOCOL POTASSIUM 1 DOSE MISC PRN (07:05)
[2016-11-03] MEDS ORDERED: MAGNESIUM SULF 2 GM/WATER 50 ML BAG IV ONE (07:08)
[2016-11-03] MEDS ORDERED: MAGNESIUM SULF 2 GM/WATER 50 ML IV ONE ×2 (07:53→12:00)
[2016-11-03] MEDS: INSULIN LISPRO 100 UNIT/ML SC SCH ×3 (08:19→18:12)
[2016-11-03] MEDS: PANTOPRAZOLE SODIUM 40 MG TAB PO SCH ×2 (08:30→18:13)
[2016-11-03] MEDS: VERAPAMIL ER 180 MG TAB PO SCH ×2 (08:31→21:07)
[2016-11-03] MEDS: predniSONE 1 MG TAB PO SCH (08:31)
[2016-11-03] MEDS: CALCIUM CARB W/VIT D 500 MG TAB PO SCH (08:31)
[2016-11-03] MEDS: INSULIN GLARGINE 100 UNITS/ML SYRINGE SC SCH ×2 (08:31→21:50)
[2016-11-03] MEDS: predniSONE 5 MG TAB PO SCH (08:31)
[2016-11-03] MEDS: SALMETEROL IH SCH ×3 (08:35→21:04)
[2016-11-03] MEDS: FLUTICASONE IH SCH ×3 (08:35→21:04)
--- NOTE | 2016-11-03 10:16 | GCON ---
[f rep st] CONSULTATION REFERRING PHYSICIAN: Hilaria Ernandez MD REASON FOR REFERRAL: Sepsis, panniculitis. HISTORY OF PRESENT ILLNESS: Patient is a 76-year-old female who presented to [facility] Emergency Room on the afternoon of 11/02/2016. Patient complained on presentation of weakness fo r 2 weeks and abdominal pain. The patient was noted to have a chronic, draining wound from the righ t side of her pannus of her abdomen. She was placed on vancomycin and given a single dose of Flagyl . Abdominal pelvic CT revealed inflammation in the soft tissues of the pannus but no intraabdominal pathology. Chest x-ray was clear. The patient had fevers overnight to 39.7. Currently, she is re sting in her hospital bed. She is awake and alert with complaints of abdominal pain in the lower re gions, and general weakness and feeling poorly. She does relate having itching reactions to both pe nicillins and Keflex. PAST MEDICAL HISTORY: 1. Chronic, draining abdominal wounds. 2. Diabetes. 3. Morbid obesity. 4. History of deep venous thrombosis. 5. Paroxysmal atrial fibrillation. 6. COPD. 7. Coronary artery disease. 8. Gout. 9. Chronic kidney disease. PAST SURGICAL HISTORY: None noted. ANTIBIOTICS: 1. Vancomycin. 2. Flagyl single dose. ALLERGIES: Patient is allergic to both penicillins and cephalosporins. She is also reportedly isabell rgic to iodine. FAMILY HISTORY: Reviewed, but noncontributory. SOCIAL HISTORY: Patient lives independently. Former smoker. No alcohol or illicit drug use. REVIEW OF SYSTEMS: Other than that detailed above in History of Present Illness, a comprehensive 10 -system review is negative. PHYSICAL EXAMINATION: VITAL SIGNS: Temperature maximum is 39.7, temperature current is 37.1, heart rate is 122, respiratory rate is 17, blood pressure is 125/61. GENERAL: The patient is a well-for med obese older female in no acute distress. She is not toxic in appearance. She is alert and orie nted x3. She is pleasant in demeanor. HEENT: Normocephalic for age. Atraumatic. No scleral icte lidia. No drainage from the nares. Eyes, lids, and conjunctivae are within normal limits. Pupils are equal bilaterally. NECK: Supple. No meningismus. LUNGS: Clear to auscultation bilaterally. Go od effort. HEART: Regular rhythm. Slightly tachycardic. The patient had a fixed split S2 in both inspiration and expiration. No murmur heard. No significant peripheral edema. ABDOMEN: Obese, s oft, tender in the pannus on both sides. The patient has a draining, open, skin ulceration with nec rotic material at the base on the right lower aspect of the pannus. SKIN: Warm and dry to the touc h. No diffuse rash. Skin ulceration is noted above. MUSCULOSKELETAL: No muscle tenderness is not ed. No joint line effusion or arthritis seen. NEURO: Cranial nerves 2-12 seem to be intact. Addis pheral sensation also seems intact. LABORATORY DATA: Patient has a CBC dated 11/03/2016: It shows a white blood cell count of 14.2, he moglobin of 8.9, hematocrit of 28.4, and a platelet count of 207, differential is left shifted with 91% segmented neutrophils. Serum chemistry shows sodium 136, potassium 4.1, chloride 112, bicarbona te 19, BUN of 22, and creatinine 1.0. Urinalysis on 11/02 shows 3-5 red cells but 50-182 white bloo d cells per high-power field. MICROBIOLOGIC DATA: The patient's blood cultures dated 11/02/2016, are pending. Abdominal swab fro m 11/02/2016, shows 1+ polymorphonuclear white cells on the Gram stain, 2+ gram-positive cocci, and rare gram-negative rods. Urine culture from 11/02/2016, is pending. RADIOLOGIC DATA: Patient has an abdominal pelvic CT dated 11/02/2016, which shows cellulitis and schwartz perficial wounds of the large pendulous abdominal pannus. No evidence of abscess on those images. Pelvic CT performed on 11/02 shows no abscess or fluid collection within the pannus but extensive ce llulitis of the pannus. Chest x-ray from 11/02/2016, is normal. ASSESSMENT: Extensive cellulitis and chronic ulcer chronic wound infection of the pannus. Unclear if this has lead to bacteremia or not. Given the likely polymicrobial aspect of this infection, we will expand her antibiotics with aztreonam given her allergies to both penicillins and cephalosporin s. We will also restart Flagyl at treatment dose. This will mean that her regimen will continue to be vancomycin, aztreonam, and Flagyl. PLAN: 1. Continue vancomycin at present dose. Follow levels. 2. Add aztreonam 1 g IV q.8 hours. 3. Resume Flagyl 500 mg IV q.8 hours. 4. Wound care. 5. Surgical consult. 6. Follow clinical course. /[id number]/MODL
--- NOTE | 2016-11-03 13:00 | HOSPPROG ---
Hospitalist Progress Note Assessment/Plan: * chronic abdominal wounds with new superimposed infection/panniculitis * continue vancomycin. Aztreonam and Flagyl added by Infectious Disease * surgery to take a look at the wound did not think it needs debridement at this time. * Sepsis * better * fever overnight though * atrial fibrillation with rapid ventricular response * high heart rate may be due to fever this morning * seems better now * continue anticoagulation and diltiazem * diarrhea * GI pathogen test pending * hypo magnesium * probably due to diarrhea and diuretics * replace * steroid dependent COPD * stable * history of DVT * Coumadin * type 2 diabetes * continue sliding scale insulin * history of coronary artery disease Subjective: Feeling about the same. No chest pain or shortness of breath Objective: Vital Signs Temp Pulse Resp BP Pulse Ox 36.8 C 91 18 108/49 L 98 11/03/16 12:00 11/03/16 12:00 11/03/16 12:00 11/03/16 12:00 11/03/16 12:00 Laboratory Results 11/03/16 05:40 11/03/16 05:40 11/02/16 11/03/16 11/04/16 05:59 05:59 05:59 Intake Total 3760 Output Total 350 Balance 3410 PT 31.1 SEC (12.0-15.0) H 11/02/16 15:35 INR 2.95 (0.83-1.16) H 11/02/16 15:35 discuss with surgery and Infectious Disease EKG personally viewed interpreted atrial fibrillation with mildly rapid rate - Physical Exam Constitutional: no apparent distress, appears nourished, not in pain Eyes: anicteric sclera, EOMI Ears, Nose, Mouth, Throat: moist mucous membranes, hearing normal, ears appear normal Cardiovascular: irregularly irregular, tachycardia Respiratory: no respiratory distress, no rales or rhonchi, clear to auscultation Gastrointestinal: normoactive bowel sounds, soft, non-tender abdomen, no palpable masses, other ( lower abdominal wall erythema with 2 abdominal wounds. Right 1 with more purulence) Skin: warm Neurologic: AAOx3 Psychiatric: interacting appropriately, not anxious, not encephalopathic, thought process linear ICD10 Worksheet Patient Problems: Problems Problem Status Onset Sepsis Acute Cellulitis Acute DKA (diabetic ketoacidoses) Acute Skin ulcer of abdomen Acute
[2016-11-03] MEDS: AZTREONAM 1 GM in D5W 50 ML IV SCH ×2 (14:21→21:51)
--- NOTE | 2016-11-03 15:21 | GCON ---
[f rep st] CONSULTATION DATE OF CONSULTATION: 11/03/2016 REFERRING PHYSICIAN: Tisha Max MD REASON FOR EVALUATION: Wound infection. HISTORY OF PRESENT ILLNESS: 76-year-old female, well known to my office with a history of chronic bilateral lower quadrant abdominal wounds. She was initially seen on August 20, 2016, with markedly necrotic putrid wounds which were managed with debridement and ultimately a wound VAC placement. She had been making excellent progress when last seen on October 26, 2016. She presented to the emergency room last evening with complaints of worsening abdominal pain, diarrhea, and generalized weakness. Of note, she had been treated previously for diverticulitis with outpatient Flagyl therapy which, per the patient's report, had improved at that time. ED workup including laboratory assessment and imaging disclosed leukocytosis and evidence of panniculitis, without abdominal wall abscess. She was admitted to the hospital service for further evaluation and management. PAST MEDICAL HISTORY: Diverticulitis, diabetes, obesity, paroxysmal atrial fibrillation, COPD, coronary artery disease, chronic renal insufficiency, DVT. PAST SURGICAL HISTORY: None. MEDICATIONS: Prednisone, metformin, warfarin, verapamil, metolazone, lansoprazole, insulin, Lasix, Advair, colchicine, calcium, atorvastatin, albuterol. ALLERGIES: Penicillin and cephalosporins. ROS: Notable for abdominal wounds, lethargy and diarrhea. Remaining 10pt ROS unremarkable. PHYSICAL EXAMINATION: VITAL SIGNS: T-max 39.7, blood pressure 125/60, heart rate 120, respirations 17. GENERAL: The patient is alert, appropriate, and comfortable. HEART: Irregular. LUNGS: Clear. ABDOMEN: Soft, nondistended. Persistent bilateral lower quadrant abdominal wounds, with markedly increased exudate, diffuse lower abdominal panniculitis. Both these findings are all new from her visit 1 week ago in office. No areas of fluctuance. Normal bilateral thighs, without extension of her cellulitis. NEUROLOGIC: Alert and appropriate. LABORATORY DATA: White count 14, hemoglobin 8.9, platelets of 207. INR 2.95. Sodium 136, potassium 4.1, chloride 112, CO2 19, BUN 22, creatinine 1.0, glucose 100. Urinalysis 50-180 white blood cells, 2+ epithelial cells. IMAGING: CT abdomen and pelvis directly reviewed on PACS - evidence of diffuse lower abdominal panniculitis. No evidence of diverticulitis, and no drainable fluid collections. IMPRESSION: 1. Panniculitis. 2. Chronic bilateral lower quadrant abdominal wounds. 3. Steroid dependent chronic obstructive pulmonary disease. 4. Diabetes mellitus. 5. Anemia on anticoagulation. RECOMMENDATIONS: 1. Patient has appropriately been started on intravenous antibiotics by the primary service. Would recommend returning to wet-to-dry dressings until exudate decreases, at which point returning to the wound VAC therapy would be appropriate. 2. Continue supportive care measures and serial CBC as per Primary Care Service. 3. Care plan was discussed with Drs. Max and Tonny. 4. Will follow with you. /[id number]/MODL MTDD
[2016-11-03] MEDS ORDERED: WARFARIN SODIUM 5 MG TAB PO SCH (16:00)
[2016-11-03] MEDS: VANCOMYCIN HCL/NORMAL SALINE 250 ML IV SCH (16:31)
[2016-11-03 18:08] LABS: POTASSIUM 4.3 mEq/L (3.5-5.2)
[2016-11-03] MEDS: ATORVASTATIN CALCIUM 40 MG TAB PO SCH (21:07)
[2016-11-04] MEDS ORDERED: ALBUTEROL 3 ML DEYVIAL IH PRN (01:46)
[2016-11-04] MEDS ORDERED: ALBUTEROL 3 ML DEYVIAL ONE (01:55)
[2016-11-04 05:05] LABS: % IMMATURE GRANULYOCYTES 0.4 % (0.0-1.1); ABSOLUTE IMMATURE GRANULOCYTES 0.05 10^3/uL (0.00-0.10); ADD DIFF? NO; ADD MORPH? NO; ADD SCAN? NO; ATYPICAL LYMPHOCYTE FLAG 0 (0-99); FRAGMENT RBC FLAG 0 (0-99); HEMATOCRIT 26.3 % (38.0-47.0); HEMOGLOBIN 8.4 g/dL (12.6-16.3); LEFT SHIFT FLG 30 (0-99); LIPEMIA HEMOLYSIS FLAG 80 (0-99); MEAN CELL HEMOGLOBIN 29.6 pg (27.9-34.1); MEAN CELL HEMOGLOBIN CONCENTR. 31.9 g/dL (32.4-36.7); MEAN CELL VOLUME 92.6 fL (81.5-99.8); MEAN PLATELET VOLUME 10.2 fL (8.7-11.7); PLATELET CLUMPS FLAG 0 (0-99); PLATELET COUNT 211 10^3/uL (150-400); RED BLOOD CELL COUNT 2.84 10^6/uL (4.18-5.33); RED CELL DISTRIBUTION WIDTH 16.6 % (11.5-15.2)
[2016-11-04] MEDS: ACETAMINOPHEN 325 MG TAB PO PRN (05:05)
[2016-11-04] MEDS: AZTREONAM 1 GM in D5W 50 ML IV SCH ×2 (05:07→14:19)
[2016-11-04 05:11] LABS: INR 4.62 (0.83-1.16); PROTIME(PATIENT) 44.6 SEC (12.0-15.0)
[2016-11-04 05:21] LABS: ALANINE AMINOTRANSFERASE 51 IU/L (9-52); ALBUMIN 1.9 g/dL (3.5-5.0); ALKALINE PHOSPHATASE 91 IU/L (38-126); ANION GAP 8 mEq/L (8-16); ASPARTATE AMINOTRANSFERASE 37 IU/L (14-46); BILIRUBIN,TOTAL 0.6 mg/dL (0.1-1.4); CALCIUM 7.3 mg/dL (8.5-10.4); CARBON DIOXIDE 17 mEq/l (22-31); CHLORIDE 110 mEq/L (97-110); CREATININE 1.2 mg/dL (0.6-1.0); GLOMERULAR FILTRATION RATE 44; GLUCOSE 203 mg/dL (70-100); MAGNESIUM 2.1 mg/dL (1.6-2.3); POTASSIUM 4.1 mEq/L (3.5-5.2); SODIUM 135 mEq/L (134-144); TOTAL PROTEIN 4.4 g/dL (6.3-8.2)
[2016-11-04] MEDS: SALMETEROL IH SCH ×2 (08:42→20:08)
[2016-11-04] MEDS: FLUTICASONE IH SCH ×2 (08:42→20:08)
--- NOTE | 2016-11-04 09:11 | SOAPPROG ---
SOAP Progress Note Assessment/Plan: Assessment:no new complaints. still feeling puny. less pain. afebrile. abd pannus still indurated and edematous. less cellulitic. wounds less soupy. less odor overall. Hb 8.4. INR 4.6. WBC 11. panniculitis - cont ABX per ID - slightly improved - cont wet to dry dressings for now - replace VAC once pain better and cellulitis improved. Anemia - elevated INR (hx DVT) - would hold for now - if continues to drop, will need further assessment. Plan: 11/04/16 09:06 11/04/16 09:07 Objective: Vital Signs Temp Pulse Resp BP Pulse Ox 37.6 C 109 H 24 H 114/55 L 96 11/04/16 04:00 11/04/16 04:00 11/04/16 04:00 11/04/16 04:00 11/04/16 04:00 Microbiology 11/03/16 20:20 Gastrointestinal Tract Panel (PCR) - Final Stool Fecal Leukocyte Stain - Final Laboratory Results 11/04/16 04:45 11/04/16 04:45 11/03/16 11/04/16 11/05/16 05:59 05:59 05:59 Intake Total 3760 2491 Output Total 350 800 Balance 3410 1691 PT 44.6 SEC (12.0-15.0) H D 11/04/16 04:45 INR 4.62 (0.83-1.16) H 11/04/16 04:45 ICD10 Worksheet Patient Problems: Problems Problem Status Onset Sepsis Acute Cellulitis Acute DKA (diabetic ketoacidoses) Acute Skin ulcer of abdomen Acute
[2016-11-04] MEDS: INSULIN GLARGINE 100 UNITS/ML SYRINGE SC SCH ×2 (10:12→23:05)
[2016-11-04] MEDS: VERAPAMIL ER 180 MG TAB PO SCH ×2 (10:16→20:48)
[2016-11-04] MEDS: predniSONE 5 MG TAB PO SCH (10:16)
[2016-11-04] MEDS: CALCIUM CARB W/VIT D 500 MG TAB PO SCH (10:16)
[2016-11-04] MEDS: INSULIN LISPRO 100 UNIT/ML SC SCH ×3 (10:16→19:38)
[2016-11-04] MEDS: predniSONE 1 MG TAB PO SCH (10:17)
[2016-11-04] MEDS: PANTOPRAZOLE SODIUM 40 MG TAB PO SCH ×2 (10:18→20:07)
--- NOTE | 2016-11-04 11:16 | PCMIDPN ---
Assessment/Plan: Assessment: Polymicrobial E infected chronic abdominal wounds with surrounding cellulitis. Patient seems to be clinically somewhat improved once antibiotic started yesterday. Plan to continue the vancomycin, aztreonam and Flagyl regimen for the next few days. Follow clinical improvement. Determination of duration by velocity of improvement. Plan: 1. Continue vancomycin, aztreonam and Flagyl. 2. Follow appearance of abdominal wounds. Subjective: Patient is resting in her hospital room. She is sitting up and eating. She states she is feeling somewhat better than yesterday. No fevers overnight. Objective: Vancomycin # 1 Aztreonam # 1 Flagyl # 1 Vital Signs Temp Pulse Resp BP Pulse Ox 36.5 C 92 20 91/53 L 95 11/04/16 08:00 11/04/16 08:00 11/04/16 08:00 11/04/16 08:00 11/04/16 08:00 Microbiology 11/03/16 20:20 Gastrointestinal Tract Panel (PCR) - Final Stool Fecal Leukocyte Stain - Final Laboratory Results 11/04/16 04:45 11/04/16 04:45 11/03/16 11/04/16 11/05/16 05:59 05:59 05:59 Intake Total 3760 2491 Output Total 350 800 Balance 3410 1691 - Physical Exam General Appearance: WD/WN, alert, no apparent distress, obese, non-toxic Respiratory: lungs clear, normal breath sounds, No respiratory distress Cardiac/Chest: regular rate, rhythm, No tachycardia Abdomen: soft, No non-tender, No mass Skin: normal color, warm/dry, No rash Neuro/Psych: alert, normal mood/affect, oriented x 3 ICD10 Worksheet Patient Problems: Problems Problem Status Onset Sepsis Acute Cellulitis Acute DKA (diabetic ketoacidoses) Acute Skin ulcer of abdomen Acute
--- NOTE | 2016-11-04 13:14 | HOSPPROG ---
Hospitalist Progress Note Assessment/Plan: * chronic abdominal wounds with new superimposed infection/panniculitis * continue vancomycin. Aztreonam and Flagyl added by Infectious Disease * surgery to take a look at the wound did not think it needs debridement at this time. * Sepsis * better * fever resolved * atrial fibrillation with rapid ventricular response * high heart rate may be due to fever this morning * seems better now * continue diltiazem * hold Coumadin * elevated INR * hold Coumadin * anemia * check iron studies * hypo magnesium * probably due to diarrhea and diuretics * replace * steroid dependent COPD * stable * history of DVT * Coumadin * type 2 diabetes * continue sliding scale insulin * history of coronary artery disease Subjective: Feels a little bit better. No new complaints Objective: Vital Signs Temp Pulse Resp BP Pulse Ox 36.5 C 92 20 91/53 L 95 11/04/16 08:00 11/04/16 08:00 11/04/16 08:00 11/04/16 08:00 11/04/16 08:00 Microbiology 11/03/16 20:20 Gastrointestinal Tract Panel (PCR) - Final Stool Fecal Leukocyte Stain - Final Laboratory Results 11/04/16 04:45 11/04/16 04:45 11/03/16 11/04/16 11/05/16 05:59 05:59 05:59 Intake Total 3760 2491 Output Total 350 800 Balance 3410 1691 PT 44.6 SEC (12.0-15.0) H D 11/04/16 04:45 INR 4.62 (0.83-1.16) H 11/04/16 04:45 tele personally viewed interpreted atrial fibrillation discussed with surgery - Physical Exam Constitutional: no apparent distress, appears nourished, not in pain Eyes: anicteric sclera, EOMI Ears, Nose, Mouth, Throat: moist mucous membranes, hearing normal Cardiovascular: irregularly irregular Respiratory: no respiratory distress, no rales or rhonchi, clear to auscultation Gastrointestinal: normoactive bowel sounds, soft, non-tender abdomen, no palpable masses Skin: other ( lower abdominal wounds with less purulence. Erythema is about the same) Neurologic: AAOx3, sensation intact bilaterally Psychiatric: interacting appropriately, not anxious, not encephalopathic, thought process linear ICD10 Worksheet Patient Problems: Problems Problem Status Onset Sepsis Acute Cellulitis Acute DKA (diabetic ketoacidoses) Acute Skin ulcer of abdomen Acute
[2016-11-04] MEDS: ALBUTEROL 60 PUFFS/8 GM MDI IH PRN ×2 (15:22→20:08)
[2016-11-04 19:10] LABS: POTASSIUM 4.3 mEq/L (3.5-5.2)
[2016-11-04 19:19] LABS: % SATURATION 7 % (20-55); TOTAL IRON BINDING CAPACITY 195 ug/dL (260-490)
[2016-11-04] MEDS: VANCOMYCIN HCL/NORMAL SALINE 250 ML IV SCH (19:35)
[2016-11-04] MEDS: ATORVASTATIN CALCIUM 40 MG TAB PO SCH (20:06)
[2016-11-04] MEDS: NS 1,000 ML IV SCH (23:03)
[2016-11-05] MEDS: AZTREONAM 1 GM in D5W 50 ML IV SCH ×4 (00:22→21:12)
[2016-11-05 06:07] LABS: % IMMATURE GRANULYOCYTES 0.6 % (0.0-1.1); ABSOLUTE IMMATURE GRANULOCYTES 0.05 10^3/uL (0.00-0.10); ADD DIFF? NO; ADD MORPH? NO; ADD SCAN? NO; ATYPICAL LYMPHOCYTE FLAG 0 (0-99); FRAGMENT RBC FLAG 0 (0-99); HEMATOCRIT 25.9 % (38.0-47.0); HEMOGLOBIN 8.1 g/dL (12.6-16.3); LEFT SHIFT FLG 20 (0-99); LIPEMIA HEMOLYSIS FLAG 80 (0-99); MEAN CELL HEMOGLOBIN 28.9 pg (27.9-34.1); MEAN CELL HEMOGLOBIN CONCENTR. 31.3 g/dL (32.4-36.7); MEAN CELL VOLUME 92.5 fL (81.5-99.8); MEAN PLATELET VOLUME 10.4 fL (8.7-11.7); PLATELET CLUMPS FLAG 10 (0-99); PLATELET COUNT 222 10^3/uL (150-400); RED CELL DISTRIBUTION WIDTH 16.7 % (11.5-15.2)
[2016-11-05 06:31] LABS: INR 3.97 (0.83-1.16); PROTIME(PATIENT) 39.5 SEC (12.0-15.0)
[2016-11-05 07:22] LABS: POTASSIUM 4.1 mEq/L (3.5-5.2)
--- NOTE | 2016-11-05 07:24 | SOAPPROG ---
SOAP Progress Note Assessment/Plan: Assessment:puny evening. still with loose BM. SOB overnight slightly worse. pain unchanged. afebrile. abd pannus indurated and edematous. cellulitis unchanged from yesterday. wounds with appropriate exudate - nothing to debride. no odor today. Hb 8.1. INR 3.7. WBC 9. panniculitis - cont ABX per ID - slightly improved - cont wet to dry dressings for now - replace VAC once pain better and cellulitis improved - PICC for IV access - anticipate will need protracted course given her comorbidities of DM/obesity...... Anemia - elevated INR (hx DVT) - minimal decrease Hb today - cont holding anticoagulation. Plan: 11/04/16 09:06 11/04/16 09:07 11/05/16 07:20 Objective: Vital Signs Temp Pulse Resp BP Pulse Ox 37.1 C 93 23 H 131/50 H 97 11/05/16 04:00 11/05/16 04:00 11/05/16 04:00 11/05/16 04:00 11/05/16 04:00 Laboratory Results 11/05/16 05:50 11/04/16 11/05/16 11/06/16 05:59 05:59 05:59 Intake Total 2491 2007 Output Total 800 Balance 1691 2007 PT 39.5 SEC (12.0-15.0) H 11/05/16 05:50 INR 3.97 (0.83-1.16) H 11/05/16 05:50 ICD10 Worksheet Patient Problems: Problems Problem Status Onset Sepsis Acute Cellulitis Acute DKA (diabetic ketoacidoses) Acute Skin ulcer of abdomen Acute
[2016-11-05] MEDS ORDERED: ALTEPLASE 2 MG VIAL IVP PRN (07:46)
[2016-11-05] MEDS: ALBUTEROL 60 PUFFS/8 GM MDI IH PRN (08:42)
[2016-11-05] MEDS: FLUTICASONE IH SCH ×2 (08:42→21:15)
[2016-11-05] MEDS: SALMETEROL IH SCH ×2 (08:42→21:15)
[2016-11-05] MEDS: oxyCODONE IR 5 MG TAB PO PRN ×2 (09:36→10:14)
[2016-11-05] MEDS: ACETAMINOPHEN 325 MG TAB PO PRN (09:36)
[2016-11-05] MEDS: predniSONE 5 MG TAB PO SCH (09:41)
[2016-11-05] MEDS: PANTOPRAZOLE SODIUM 40 MG TAB PO SCH ×2 (09:42→16:33)
[2016-11-05] MEDS: predniSONE 1 MG TAB PO SCH (09:42)
[2016-11-05] MEDS: CALCIUM CARB W/VIT D 500 MG TAB PO SCH (09:42)
[2016-11-05] MEDS: INSULIN GLARGINE 100 UNITS/ML SYRINGE SC SCH ×2 (09:51→21:17)
[2016-11-05] MEDS: INSULIN LISPRO 100 UNIT/ML SC SCH ×3 (10:15→16:29)
[2016-11-05] MEDS: VERAPAMIL ER 180 MG TAB PO SCH ×2 (11:09→21:11)
--- NOTE | 2016-11-05 13:18 | HOSPPROG ---
Hospitalist Progress Note Assessment/Plan: * chronic abdominal wounds with new superimposed infection/panniculitis * continue vancomycin. Aztreonam and Flagyl added by Infectious Disease * surgery to take a look at the wound did not think it needs debridement at this time. * Sepsis * better * fever resolved * atrial fibrillation with rapid ventricular response * high heart rate may be due to fever this morning * seems better now * continue diltiazem * hold Coumadin * elevated INR * hold Coumadin * anemia * some element of iron deficiency * consider outpatient workup * hypo magnesium * probably due to diarrhea and diuretics * replace * steroid dependent COPD * stable * history of DVT * Coumadin * type 2 diabetes * continue sliding scale insulin * history of coronary artery disease Subjective: no much change. Objective: Vital Signs Temp Pulse Resp BP Pulse Ox 37.7 C 138 H 20 123/64 H 93 11/05/16 09:25 11/05/16 11:10 11/05/16 09:25 11/05/16 09:25 11/05/16 09:25 Microbiology 11/02/16 21:57 Urine Culture - Final Urine,Clean Catch Staphylococcus Aureus Gram Neg Campbell Lactose Traffic Maintenance Supervisor Five Or More [place] Types Laboratory Results 11/05/16 05:50 11/05/16 05:50 11/04/16 11/05/16 11/06/16 05:59 05:59 05:59 Intake Total 2491 2007 Output Total 800 Balance 1691 2007 PT 39.5 SEC (12.0-15.0) H 11/05/16 05:50 INR 3.97 (0.83-1.16) H 11/05/16 05:50 - Physical Exam Constitutional: no apparent distress, appears nourished, not in pain Eyes: anicteric sclera, EOMI Ears, Nose, Mouth, Throat: moist mucous membranes, hearing normal Cardiovascular: irregularly irregular Respiratory: no respiratory distress, no rales or rhonchi, clear to auscultation Gastrointestinal: normoactive bowel sounds, soft, non-tender abdomen, no palpable masses Skin: other ( Cellulitis lower pannus seems to be a little bit less angry looking. Wounds dressed) Neurologic: AAOx3 Psychiatric: interacting appropriately, not anxious, not encephalopathic, thought process linear ICD10 Worksheet Patient Problems: Problems Problem Status Onset Sepsis Acute Cellulitis Acute DKA (diabetic ketoacidoses) Acute Skin ulcer of abdomen Acute
[2016-11-05] MEDS: NS 1,000 ML IV SCH (14:07)
[2016-11-05] MEDS: VANCOMYCIN HCL/NORMAL SALINE 250 ML IV SCH (16:33)
--- NOTE | 2016-11-05 17:11 | PCMIDPN ---
Assessment/Plan: Assessment: Polymicrobially infected chronic abdominal wounds with surrounding cellulitis. Patient seems clinically improved yesterday however over the past 24 hours she has developed a burning pain in the extreme left lower quadrant of her pannus. No vesicular rash is evident to indicate possible shingles. Plan to continue the vancomycin, aztreonam and Flagyl regimen however will add Levaquin to cover the Pseudomonas isolate. Follow clinical improvement. Determination of duration by velocity of improvement. Plan: 1. Continue vancomycin, aztreonam and Flagyl. 2. Add Levaquin 750 mg IV Q 24. 3. Follow appearance of abdominal wounds. 11/05/16 17:08 Subjective: Patient is sitting up in her hospital chair. She is complaining of burning pain in her pannus. It is not crampy. It is not sharp. This started over the last 24 hours. The pain does not stretch over to her back. Objective: Vancomycin #2 Aztreonam #2 Flagyl #2 Vital Signs Temp Pulse Resp BP Pulse Ox 36.6 C 104 H 21 H 113/45 L 92 11/05/16 16:15 11/05/16 16:15 11/05/16 16:15 11/05/16 16:15 11/05/16 16:15 Microbiology 11/02/16 21:57 Urine Culture - Final Urine,Clean Catch Staphylococcus Aureus Gram Neg Campbell Lactose Landing Man Five Or More [place] Types Laboratory Results 11/05/16 05:50 11/05/16 05:50 11/04/16 11/05/16 11/06/16 05:59 05:59 05:59 Intake Total 2491 2007 Output Total 800 Balance 1691 2007 - Physical Exam General Appearance: WD/WN, alert, obese, non-toxic Respiratory: lungs clear, normal breath sounds, No respiratory distress Cardiac/Chest: regular rate, rhythm, tachycardia Abdomen: soft, No non-tender, No rebound, No mass, No rigid Skin: normal color, warm/dry, No rash Neuro/Psych: alert, normal mood/affect, oriented x 3 ICD10 Worksheet Patient Problems: Problems Problem Status Onset Sepsis Acute Cellulitis Acute DKA (diabetic ketoacidoses) Acute Skin ulcer of abdomen Acute
[2016-11-05] MEDS: ATORVASTATIN CALCIUM 40 MG TAB PO SCH (21:11)
[2016-11-06] MEDS: oxyCODONE IR 5 MG TAB PO PRN ×3 (02:40→11:26)
[2016-11-06] MEDS: AZTREONAM 1 GM in D5W 50 ML IV SCH ×3 (06:04→22:35)
[2016-11-06 06:20] LABS: % IMMATURE GRANULYOCYTES 0.5 % (0.0-1.1); ABSOLUTE IMMATURE GRANULOCYTES 0.04 10^3/uL (0.00-0.10); ADD DIFF? NO; ADD MORPH? NO; ADD SCAN? NO; ATYPICAL LYMPHOCYTE FLAG 0 (0-99); FRAGMENT RBC FLAG 10 (0-99); HEMATOCRIT 24.9 % (38.0-47.0); HEMOGLOBIN 7.6 g/dL (12.6-16.3); LEFT SHIFT FLG 30 (0-99); LIPEMIA HEMOLYSIS FLAG 80 (0-99); MEAN CELL HEMOGLOBIN CONCENTR. 30.5 g/dL (32.4-36.7); MEAN PLATELET VOLUME 10.5 fL (8.7-11.7); PLATELET CLUMPS FLAG 0 (0-99); PLATELET COUNT 239 10^3/uL (150-400); RED BLOOD CELL COUNT 2.62 10^6/uL (4.18-5.33)
[2016-11-06 06:33] LABS: INR 4.18 (0.83-1.16); PROTIME(PATIENT) 41.1 SEC (12.0-15.0)
[2016-11-06 06:48] LABS: ANION GAP 10 mEq/L (8-16); CALCIUM 7.5 mg/dL (8.5-10.4); CARBON DIOXIDE 16 mEq/l (22-31); CHLORIDE 113 mEq/L (97-110); CREATININE 1.1 mg/dL (0.6-1.0); GLOMERULAR FILTRATION RATE 48; GLUCOSE 157 mg/dL (70-100); MAGNESIUM 1.9 mg/dL (1.6-2.3); SODIUM 139 mEq/L (134-144)
[2016-11-06] MEDS: ACETAMINOPHEN 325 MG TAB PO PRN (07:55)
[2016-11-06] MEDS: INSULIN LISPRO 100 UNIT/ML SC SCH ×3 (08:56→18:14)
[2016-11-06] MEDS: VERAPAMIL ER 180 MG TAB PO SCH ×2 (09:27→22:35)
[2016-11-06] MEDS: PANTOPRAZOLE SODIUM 40 MG TAB PO SCH ×2 (09:28→18:14)
[2016-11-06] MEDS: predniSONE 1 MG TAB PO SCH (09:28)
[2016-11-06] MEDS: CALCIUM CARB W/VIT D 500 MG TAB PO SCH (09:28)
[2016-11-06] MEDS: predniSONE 5 MG TAB PO SCH (09:28)
[2016-11-06] MEDS: INSULIN GLARGINE 100 UNITS/ML SYRINGE SC SCH ×2 (09:29→22:34)
[2016-11-06] MEDS: SALMETEROL IH SCH ×2 (10:10→21:55)
[2016-11-06] MEDS: FLUTICASONE IH SCH ×2 (10:10→21:55)
[2016-11-06] MEDS: ALBUTEROL 60 PUFFS/8 GM MDI IH PRN ×2 (10:11→21:54)
--- NOTE | 2016-11-06 13:54 | PCMIDPN ---
Assessment/Plan: Assessment/Plan: 1. Polymicrobial chronic abdominal wounds with cellulitis: - cellulitis has resolved. - Wound cx noted. Spoke with micro. PsA isolate is susceptible to aztreonam and they will update profile. -Currently on VAnco, aztreonam, levaquin and flagyl. -Ct's noted: no abscess within pannus, and no intraabdominal abscess. -Will d/c flagyl and levaquin for now. INR noted. -Hopefully, can tailor down to oral antibiotics at some point. Meds vanco, aztreonam, levaquin, flagyl. Subjective: Afebrile. patient feels better today overall. had a shower. denies sob, abd pain. having one loose stool/day. Objective: Vital Signs Temp Pulse Resp BP Pulse Ox 36.7 C 80 18 121/69 H 96 11/06/16 12:00 11/06/16 12:00 11/06/16 12:00 11/06/16 12:00 11/06/16 12:00 Microbiology 11/02/16 21:57 Urine Culture - Final Urine,Clean Catch Staphylococcus Aureus Gram Neg Campbell Lactose Chief Creative Officer Five Or More [place] Types Laboratory Results 11/06/16 06:00 11/06/16 06:00 11/05/16 11/06/16 11/07/16 05:59 05:59 05:59 Intake Total 2007 2124 Balance 2007 2124 - Physical Exam General Appearance: alert, no apparent distress Respiratory: lungs clear Cardiac/Chest: regular rate, rhythm Extremities: No swelling Abdomen: normal bowel sounds, non-tender, other (obese), No distended Skin: other (lower abd: two moderate ulcers with some mild overlying slough. mild foul smell. no surrounding erythema/cellulitis at present. ) ICD10 Worksheet Patient Problems: Problems Problem Status Onset Sepsis Acute Cellulitis Acute DKA (diabetic ketoacidoses) Acute Skin ulcer of abdomen Acute
[2016-11-06] MEDS: FUROSEMIDE 40 MG/4 ML VIAL IVP SCH (14:36)
[2016-11-06] MEDS: VANCOMYCIN HCL/NORMAL SALINE 250 ML IV SCH (15:39)
--- NOTE | 2016-11-06 15:40 | HOSPPROG ---
Hospitalist Progress Note Assessment/Plan: * chronic abdominal wounds with new superimposed infection/panniculitis * continue IV antibiotics per Infectious Disease * surgery to take a look at the wound did not think it needs debridement at this time. * Sepsis * better * fever resolved * atrial fibrillation with rapid ventricular response * heart rate is better * hold Coumadin * elevated INR * hold Coumadin * anemia * some element of iron deficiency * consider outpatient workup * hypo magnesium * probably due to diarrhea and diuretics * replace * steroid dependent COPD * stable * history of DVT * Coumadin * type 2 diabetes * continue sliding scale insulin * history of coronary artery disease Subjective: feeling better Objective: Vital Signs Temp Pulse Resp BP Pulse Ox 36.7 C 80 18 121/69 H 96 11/06/16 12:00 11/06/16 12:00 11/06/16 12:00 11/06/16 12:00 11/06/16 12:00 Laboratory Results 11/06/16 06:00 11/06/16 06:00 11/05/16 11/06/16 11/07/16 05:59 05:59 05:59 Intake Total 2007 2124 Balance 2007 2124 PT 41.1 SEC (12.0-15.0) H 11/06/16 06:00 INR 4.18 (0.83-1.16) H 11/06/16 06:00 tele personally viewed interpreted atrial fibrillation - Physical Exam Constitutional: no apparent distress, appears nourished, not in pain Eyes: anicteric sclera, EOMI Ears, Nose, Mouth, Throat: moist mucous membranes, hearing normal Cardiovascular: irregularly irregular Respiratory: no respiratory distress, no rales or rhonchi, clear to auscultation Gastrointestinal: normoactive bowel sounds, soft, non-tender abdomen, no palpable masses Skin: other ( improving erythema in lower pannus) Neurologic: AAOx3 Psychiatric: interacting appropriately, not anxious, not encephalopathic, thought process linear ICD10 Worksheet Patient Problems: Problems Problem Status Onset Sepsis Acute Cellulitis Acute DKA (diabetic ketoacidoses) Acute Skin ulcer of abdomen Acute
[2016-11-06] MEDS ORDERED: WARFARIN SODIUM 7.5 MG TAB PO SCH (16:00)
--- NOTE | 2016-11-06 18:30 | SOAPPROG ---
SOAP Progress Note Assessment/Plan: Assessment: Feeling better. Sitting in bedside recliner having dinner. No further diarrhea currently. Breathing well. Pain slightly improved. Afeb, A&O x 3, Abd Pannus induration and edema without significant change. Cellulitis improved. Wound dressings left in place. No odor. Hgb 7.6, INR 4.18, WBC 8.05. Blood cultures negative, Wound cultures + staph aureus, streptococcus intermedius, pseudomonas aeruginosa, Urine cultures + staph aureus, gram neg enoc lactose circular shear operator, 5 or more colony types. Plan: Panniculitis- continue antibiotics per ID (ID hoping to tailor down to oral antibiotics), Continue wound dressings- wet to dry. Will restart use of wound vac- hopefully soon. INR supratherapeutic- continue to monitor closely. Disposition per primary team. Will plan to continue to manage wound vac in the office once discharged. Plan: 11/06/16 18:25 Objective: Vital Signs Temp Pulse Resp BP Pulse Ox 36.6 C 110 H 17 124/66 H 98 11/06/16 16:00 11/06/16 16:00 11/06/16 16:00 11/06/16 16:00 11/06/16 16:00 Laboratory Results 11/06/16 06:00 11/06/16 06:00 11/05/16 11/06/16 11/07/16 05:59 05:59 05:59 Intake Total 2007 2124 733 Output Total 375 Balance 2007 2124 358 PT 41.1 SEC (12.0-15.0) H 11/06/16 06:00 INR 4.18 (0.83-1.16) H 11/06/16 06:00 ICD10 Worksheet Patient Problems: Problems Problem Status Onset Sepsis Acute Cellulitis Acute DKA (diabetic ketoacidoses) Acute Skin ulcer of abdomen Acute
[2016-11-06] MEDS: ATORVASTATIN CALCIUM 40 MG TAB PO SCH (22:35)
[2016-11-07] MEDS: AZTREONAM 1 GM in D5W 50 ML IV SCH ×2 (06:11→14:13)
[2016-11-07 06:30] LABS: % IMMATURE GRANULYOCYTES 0.6 % (0.0-1.1); ABSOLUTE IMMATURE GRANULOCYTES 0.04 10^3/uL (0.00-0.10); ADD DIFF? NO; ADD MORPH? NO; ADD SCAN? NO; ATYPICAL LYMPHOCYTE FLAG 0 (0-99); FRAGMENT RBC FLAG 0 (0-99); HEMATOCRIT 25.3 % (38.0-47.0); HEMOGLOBIN 7.9 g/dL (12.6-16.3); LEFT SHIFT FLG 60 (0-99); LIPEMIA HEMOLYSIS FLAG 80 (0-99); MEAN CELL HEMOGLOBIN 29.5 pg (27.9-34.1); MEAN CELL HEMOGLOBIN CONCENTR. 31.2 g/dL (32.4-36.7); MEAN CELL VOLUME 94.4 fL (81.5-99.8); MEAN PLATELET VOLUME 10.3 fL (8.7-11.7); PLATELET CLUMPS FLAG 0 (0-99); PLATELET COUNT 277 10^3/uL (150-400); RED BLOOD CELL COUNT 2.68 10^6/uL (4.18-5.33); RED CELL DISTRIBUTION WIDTH 17.3 % (11.5-15.2)
[2016-11-07 06:40] LABS: ANION GAP 9 mEq/L (8-16); CALCIUM 7.9 mg/dL (8.5-10.4); CARBON DIOXIDE 17 mEq/l (22-31); CHLORIDE 114 mEq/L (97-110); CREATININE 1.1 mg/dL (0.6-1.0); GLOMERULAR FILTRATION RATE 48; GLUCOSE 251 mg/dL (70-100); MAGNESIUM 1.7 mg/dL (1.6-2.3); POTASSIUM 4.1 mEq/L (3.5-5.2); SODIUM 140 mEq/L (134-144)
[2016-11-07 06:49] LABS: INR 4.01 (0.83-1.16); PROTIME(PATIENT) 39.8 SEC (12.0-15.0)
[2016-11-07] MEDS: SALMETEROL IH SCH ×2 (08:05→22:00)
[2016-11-07] MEDS: FLUTICASONE IH SCH ×2 (08:05→22:00)
[2016-11-07] MEDS: ALBUTEROL 60 PUFFS/8 GM MDI IH PRN ×2 (08:05→22:38)
[2016-11-07] MEDS: predniSONE 5 MG TAB PO SCH (09:07)
[2016-11-07] MEDS: VERAPAMIL ER 180 MG TAB PO SCH ×2 (09:07→22:24)
[2016-11-07] MEDS: FUROSEMIDE 40 MG/4 ML VIAL IVP SCH (09:07)
[2016-11-07] MEDS: CALCIUM CARB W/VIT D 500 MG TAB PO SCH (09:07)
[2016-11-07] MEDS: INSULIN GLARGINE 100 UNITS/ML SYRINGE SC SCH ×2 (09:07→22:25)
[2016-11-07] MEDS: PANTOPRAZOLE SODIUM 40 MG TAB PO SCH ×2 (09:07→17:06)
[2016-11-07] MEDS: predniSONE 1 MG TAB PO SCH (09:08)
[2016-11-07] MEDS: INSULIN LISPRO 100 UNIT/ML SC SCH ×3 (09:09→19:04)
[2016-11-07] MEDS ORDERED: MAGNESIUM SULF 1 GM/DEXTROSE 100 ML IV ONE (09:57)
--- NOTE | 2016-11-07 10:52 | SOAPPROG ---
SOAP Progress Note Assessment/Plan: Assessment: Feeling better. Sitting in bedside recliner having breakfast. Diarrhea resolved. Breathing well. Pain improving. Afeb, A&O x 3, Abd Pannus induration and edema without significant change. Cellulitis improved. Wound dressings removed. Left abdominal wound clean with good granulation. Right abdominal wound with thin fibrinous debris. No odor. Hgb 7.9, INR 4.0, WBC 6.4. Blood cultures negative, Wound cultures + staph aureus, streptococcus intermedius, pseudomonas aeruginosa, Urine cultures + staph aureus, gram neg enoc lactose meat cutting block repairer, 5 or more colony types. Plan: Panniculitis- continue antibiotics per ID (ID hoping to tailor down to oral antibiotics), Continue wound dressings- wet to dry. Will restart use of wound vac- hopefully soon. INR supratherapeutic - continue to monitor closely (anticoag on hold). Disposition per primary team- ? rehab. Will plan to continue to manage wound vac in the office once discharged. Plan: 11/06/16 18:25 11/07/16 10:51 11/07/16 10:53 11/07/16 10:55 Objective: Vital Signs Temp Pulse Resp BP Pulse Ox 36.8 C 82 16 107/52 L 99 11/07/16 07:59 11/07/16 07:59 11/07/16 07:59 11/07/16 07:59 11/07/16 07:59 Laboratory Results 11/07/16 06:00 11/07/16 06:00 11/06/16 11/07/16 11/08/16 05:59 05:59 05:59 Intake Total 2125 2333 Output Total 1055 Balance 2125 1278 PT 39.8 SEC (12.0-15.0) H 11/07/16 06:00 INR 4.01 (0.83-1.16) H 11/07/16 06:00 ICD10 Worksheet Patient Problems: Problems Problem Status Onset Sepsis Acute Cellulitis Acute DKA (diabetic ketoacidoses) Acute Skin ulcer of abdomen Acute
--- NOTE | 2016-11-07 16:12 | HOSPPROG ---
Hospitalist Progress Note Assessment/Plan: # acute on chronic polymicrobial abdominal wall cellulitis/panniculitis - currently wet to dry dressing; surgery hoping for wound vac - cont abx per ID - vanc and aztreonam # vol overload - on lasix IV, follow BMP and weights # COPD, steroid dependent # DM2 - glucs high, slight increase in glargine today # CKD - approx at baseline # NAGMA, mild - possibly d/t diarrhea, but none today # a-fib with supratherapeutic INR - hold warfarin - verapamil # anemia - slow trend down, follow # sepsis - resolved # hx DVT - warfarin # CAD - AC and statin ## CT reviewed chart reviewed Subjective: eating; abd bailer tenders supervisor but better Objective: Vital Signs Temp Pulse Resp BP Pulse Ox 37.0 C 55 L 19 117/66 99 11/07/16 15:10 11/07/16 15:10 11/07/16 15:10 11/07/16 15:10 11/07/16 15:10 Laboratory Results 11/07/16 06:00 11/07/16 06:00 11/06/16 11/07/16 11/08/16 05:59 05:59 05:59 Intake Total 2125 2333 535 Output Total 1055 Balance 2125 1278 535 PT 39.8 SEC (12.0-15.0) H 11/07/16 06:00 INR 4.01 (0.83-1.16) H 11/07/16 06:00 - Physical Exam Constitutional: no apparent distress, appears nourished Cardiovascular: regular rate and rhythym, no murmur, rub, or gallop Respiratory: no respiratory distress, no rales or rhonchi, clear to auscultation Gastrointestinal: other (soft, two wounds n lower abd with gauze; decreased erythema; no HSM) ICD10 Worksheet Patient Problems: Problems Problem Status Onset DKA (diabetic ketoacidoses) Acute Cellulitis Acute Skin ulcer of abdomen Acute Sepsis Acute
[2016-11-07] MEDS: VANCOMYCIN HCL/NORMAL SALINE 250 ML IV SCH (17:06)
--- NOTE | 2016-11-07 17:22 | PCMIDPN ---
Assessment/Plan: Assessment: # Panniculitis associated likely portal 2 chronic wounds of unclear etiology. contributing factors chr low dose steroids and poorly controlled DM. This is my first day but only faint erythema remains mid abdomen. Wound cultures showed MSSA, Streptococcus intermedius and rare Pseudomonas. Suspect primary mediated versus disease are MSSA and Streptococcus intermedius --DC aztreonam. Continue vancomycin for coverage of SA and strep. Patient unwilling to go back to cephalosporin/PCN --because of intolerances/allergies will likely need to complete therapy with vancomycin, tentatively plan 7-10 days therapy --probably okay to replace wound vac but patient is hesitant. Patient would like to wait until 11/12. # Allergies to abx/intolerances PCN -->severe itching Cephlexin -> severe itching CLindamycin > rash witnessed by me med aztreonam 1gm IV q8h #4 Vancomycin 1gm IV daily#5 Micro Blood cx 11/03 (2) negative Subjective: decreased pain across abdomen Objective: Vital Signs Temp Pulse Resp BP Pulse Ox 37.0 C 55 L 19 117/66 99 11/07/16 15:10 11/07/16 15:10 11/07/16 15:10 11/07/16 15:10 11/07/16 15:10 Laboratory Results 11/07/16 06:00 11/07/16 06:00 11/06/16 11/07/16 11/08/16 05:59 05:59 05:59 Intake Total 2125 2333 535 Output Total 1055 Balance 2125 1278 535 - Physical Exam General Appearance: alert EENT: pale conjunctiva, No scleral icterus Respiratory: lungs clear, No accessory muscle use Cardiac/Chest: regular rate, rhythm Extremities: pedal edema Abdomen: other (large pannus with 2 lateral wound, woody edema, mild to mod erythema in strip between 2 wound, generally appears erythema has receded) Neuro/Psych: alert, normal mood/affect, oriented x 3 - Line/s RUE PICC Lines: No drainage, No erythema - Time Spent With Patient Time Spent with Patient: greater than 25 minutes Time Spent with Patient: Greater than 25 minutes spent on this patients care, greater than 50% of time spent counseling, educating, and coordinating care regarding the above mentioned plan. ICD10 Worksheet Patient Problems: Problems Problem Status Onset Sepsis Acute Cellulitis Acute DKA (diabetic ketoacidoses) Acute Skin ulcer of abdomen Acute
[2016-11-07] MEDS: ATORVASTATIN CALCIUM 40 MG TAB PO SCH (22:24)
[2016-11-08 06:05] LABS: % IMMATURE GRANULYOCYTES 0.8 % (0.0-1.1); ABSOLUTE IMMATURE GRANULOCYTES 0.05 10^3/uL (0.00-0.10); ADD DIFF? NO; ADD MORPH? NO; ADD SCAN? NO; ATYPICAL LYMPHOCYTE FLAG 0 (0-99); FRAGMENT RBC FLAG 50 (0-99); HEMATOCRIT 25.2 % (38.0-47.0); HEMOGLOBIN 7.8 g/dL (12.6-16.3); LEFT SHIFT FLG 20 (0-99); LIPEMIA HEMOLYSIS FLAG 80 (0-99); MEAN CELL HEMOGLOBIN 28.8 pg (27.9-34.1); MEAN PLATELET VOLUME 10.1 fL (8.7-11.7); PLATELET CLUMPS FLAG 0 (0-99); PLATELET COUNT 348 10^3/uL (150-400); RED BLOOD CELL COUNT 2.71 10^6/uL (4.18-5.33); RED CELL DISTRIBUTION WIDTH 17.3 % (11.5-15.2)
[2016-11-08 06:15] LABS: INR 3.37 (0.83-1.16); PROTIME(PATIENT) 34.6 SEC (12.0-15.0)
[2016-11-08 06:23] LABS: ANION GAP 7 mEq/L (8-16); CALCIUM 7.9 mg/dL (8.5-10.4); CARBON DIOXIDE 18 mEq/l (22-31); CHLORIDE 116 mEq/L (97-110); CREATININE 1.1 mg/dL (0.6-1.0); GLOMERULAR FILTRATION RATE 48; GLUCOSE 125 mg/dL (70-100); MAGNESIUM 1.8 mg/dL (1.6-2.3); POTASSIUM 3.8 mEq/L (3.5-5.2); SODIUM 141 mEq/L (134-144)
[2016-11-08] MEDS ORDERED: MAGNESIUM SULF 1 GM/DEXTROSE 100 ML IV ONE (07:31)
[2016-11-08] MEDS: FUROSEMIDE 40 MG/4 ML VIAL IVP SCH (10:00)
[2016-11-08] MEDS: PANTOPRAZOLE SODIUM 40 MG TAB PO SCH ×2 (10:01→17:47)
[2016-11-08] MEDS: CALCIUM CARB W/VIT D 500 MG TAB PO SCH (10:01)
[2016-11-08] MEDS: INSULIN GLARGINE 100 UNITS/ML SYRINGE SC SCH ×2 (10:01→23:21)
[2016-11-08] MEDS: predniSONE 5 MG TAB PO SCH (10:01)
[2016-11-08] MEDS: VERAPAMIL ER 180 MG TAB PO SCH ×2 (10:01→20:26)
[2016-11-08] MEDS: predniSONE 1 MG TAB PO SCH (10:02)
[2016-11-08] MEDS: INSULIN LISPRO 100 UNIT/ML SC SCH ×3 (10:02→17:48)
[2016-11-08] MEDS: oxyCODONE IR 5 MG TAB PO PRN (10:08)
[2016-11-08] MEDS: ALBUTEROL 60 PUFFS/8 GM MDI IH PRN ×2 (11:10→20:36)
[2016-11-08] MEDS: SALMETEROL IH SCH ×2 (11:10→20:37)
[2016-11-08] MEDS: FLUTICASONE IH SCH ×2 (11:10→20:37)
--- NOTE | 2016-11-08 12:40 | PCMIDPN ---
Assessment/Plan: Assessment: # Panniculitis likely portal 2 chronic wounds of unclear etiology. contributing factors chr low dose steroids and poorly controlled DM. Moderate erythema remains in the mid abdomen. Wound cultures showed MSSA, Streptococcus intermedius and rare Pseudomonas, but suspect cellulitis mediated by MSSA and Streptococcus intermedius. Reviewed CT scan from admission that shows no abscess. Today, Increased pain R side, but no change in clinical exam. NOt sure why increased pain. Labs & hemodynamics also stable --Continue vancomycin 1gm daily for coverage of SA and strep. Known renal insufficiency with Cr 1.1 --check vanco T --because of intolerances/allergies completing therapy with vancomycin, erythema slow to improve, will tentatively planned 14 days, stop date 11/16/16 --probably okay to replace wound vac but patient is hesitant. Patient would like to wait until 11/12. # Allergies to abx/intolerances PCN -->severe itching Cephlexin -> severe itching CLindamycin > rash witnessed by me med Vancomycin 1gm IV daily#6 Micro Blood cx 11/03 (2) negative Subjective: having a "terrible day" because increased pain right side of abdomen. Denies specific inciting event Objective: Vital Signs Temp Pulse Resp BP Pulse Ox 37.1 C 55 L 19 116/55 L 100 11/08/16 11:32 11/08/16 11:32 11/08/16 11:32 11/08/16 11:32 11/08/16 11:32 Laboratory Results 11/08/16 05:50 11/08/16 05:50 11/07/16 11/08/16 11/09/16 05:59 05:59 05:59 Intake Total 2333 1120 360 Output Total 1055 200 Balance 1278 920 360 - Physical Exam General Appearance: alert, no apparent distress EENT: normal ENT inspection Respiratory: lungs clear, No accessory muscle use Cardiac/Chest: regular rate, rhythm Extremities: pedal edema Abdomen: other (R and L sided wound on undersurface of pannus with irregular borders, erythema remains mid pannus, no change compared to yesterday) Skin: No jaundice, No rash, No embolic lesions Neuro/Psych: alert, normal mood/affect, oriented x 3 - Line/s RUE PICC Lines: No drainage, No erythema ICD10 Worksheet Patient Problems: Problems Problem Status Onset Sepsis Acute Cellulitis Acute DKA (diabetic ketoacidoses) Acute Skin ulcer of abdomen Acute
--- NOTE | 2016-11-08 13:36 | SOAPPROG ---
SOAP Progress Note Assessment/Plan: Assessment:feeling much better. min pain. afebrile. up in chair. comfortable. abd soft. RLQ with exuding fat necrosis from right lateral pannus - Qtip with shallow medial tracking cavity - no purulence, no tunneling. wounds clean with good granulation - left nicely filled in, right clean shallow crater (marked progress since initial exams 2 months prior). panniculitis with expected edema. erythema markedly better. agree with ID - VAC would be appropriate at this time. she is planning to go to SNF - for simplicity sake, would have them place VAC there and continue wet-dry until arrival. will plan to continue following in the outpatient setting. ABX course as per ID noted. discussed with nursing staff. Plan: 11/04/16 09:06 11/04/16 09:07 11/05/16 07:20 11/08/16 13:33 11/08/16 13:36 Objective: Vital Signs Temp Pulse Resp BP Pulse Ox 37.1 C 55 L 19 116/55 L 100 11/08/16 11:32 11/08/16 11:32 11/08/16 11:32 11/08/16 11:32 11/08/16 11:32 Laboratory Results 11/08/16 05:50 11/08/16 05:50 11/07/16 11/08/16 11/09/16 05:59 05:59 05:59 Intake Total 2333 1120 360 Output Total 1055 200 Balance 1278 920 360 PT 34.6 SEC (12.0-15.0) H 11/08/16 05:50 INR 3.37 (0.83-1.16) H 11/08/16 05:50 ICD10 Worksheet Patient Problems: Problems Problem Status Onset Sepsis Acute Cellulitis Acute DKA (diabetic ketoacidoses) Acute Skin ulcer of abdomen Acute
--- NOTE | 2016-11-08 13:44 | CPEKG ---
Heart Rate: 88 RR Interval: 682 QRSD Interval: 92 QT Interval: 392 QTC Interval: 475 QRS Garrison: -16 T Wave Garrison: 191 EKG Severity - ABNORMAL ECG - EKG Impression: ATRIAL FIBRILLATION EKG Impression: BORDERLINE LEFT AXIS DEVIATION EKG Impression: MULTI-FOCAL PVCS Electronically Signed By: Kelechi Oro 08-Nov-2016 18:34:38
--- NOTE | 2016-11-08 13:58 | WOCRNPDOC ---
WOCRN Advanced Assessment Note - Skin Integrity Problem, Advanced Assess Buttock Dressing Type: Open to Air [place] Wound Tissue: Blanching, Erythema Wound Bed Color: [employer] Wound Bed Constitution: Smooth Tissue Site Measurement - Head-to-Toe Length X Width X Depth (cm): 1.3x1x0.1 (x2), one small 0.5x0.5x0.1 in same area. Skin Integrity Problem Comment: Bilateral buttock incontinence associated dermatitis and friction wounds. Wound are on buttock tissue on either side of the coccyx which is red but blanching. Sacrum non erythematic. Gluteal cleft with mild intertriginous dermatitis. No pressure injury present. Apply Dimethicone cream BID. Please reconsult prn. Wound care will not follow this wound.
--- NOTE | 2016-11-08 14:39 | HOSPPROG ---
Hospitalist Progress Note Assessment/Plan: Assessment: 76-year-old female presents with sepsis in setting of polymicrobial cellulitis and panniculitis Plan: # acute on chronic polymicrobial abdominal wall cellulitis/panniculitis. present along R abd, fat necrosis w/ minimal serous/pustulent exudate today - currently wet to dry dressing, cont to SNF, then place wound vac at SNF per Dr. Seay - cont abx per ID - vanc and aztreonam, PICC line, need to determine duration - patient is very skeptical of plan to have outpt wound mgmt in clinic # sepsis. poa, evidenced by fever + tachycardia + tachypnea + leukocytosis + clear source of infxn (above), resulting in autonomic dysregulation in setting of infxn, meeting all sepsis-2/icds-2 criteria - s/p IVF and broad Abx - monitoring CBC # edema. acute, new problem, further w/u indicated. 2/2 vol overload, gained 10kg, increase lasix IV 40 bid, follow BMP and weights - experiencing pulm symptoms - get CXR, BNP, echo # COPD. chronic, steroid dependent # DM2. cont lantus # CKD stage III. at approx at baseline # metabolic acidosis. non-anion gap, possibly d/t diarrhea, monitoring # atrial fibrillation. persistent, on iris blocking agent, with supratherapeutic INR - cont verapamil - cont holding coumadin, daily INR # hx DVT. cont INR monitoring, holding warfarin # CAD. chronic, cont AC and statin # KERVIN. chronic, refuses CPAP # morbid obesity. BMI 44 w/ increased risk of morbidity and poor wound healing diet. diabetic ppx. high risk, INR > 2 code. full dispo. ADD uncertain, pending surgical stability of wound Subjective: Patient reports that she is frustrated by the prospect of having to come to [place] for wound care Objective: Vital Signs Temp Pulse Resp BP Pulse Ox 37.1 C 55 L 19 116/55 L 100 11/08/16 11:32 11/08/16 11:32 11/08/16 11:32 11/08/16 11:32 11/08/16 11:32 Laboratory Results 11/08/16 05:50 11/08/16 05:50 11/07/16 11/08/16 11/09/16 05:59 05:59 05:59 Intake Total 2333 1120 360 Output Total 1055 200 Balance 1278 920 360 PT 34.6 SEC (12.0-15.0) H 11/08/16 05:50 INR 3.37 (0.83-1.16) H 11/08/16 05:50 - Time Spent With Patient Time Spent with Patient: greater than 35 minutes Time Spent with Patient: Greater than 35 minutes spent on this patients care, greater than 50% of time spent counseling, educating, and coordinating care regarding the above mentioned plan. - Physical Exam Constitutional: not in pain, chronically ill appearing, obese, No uncomfortable Cardiovascular: irregularly irregular, tachycardia, edema (1+ bilateral lower extremity) Respiratory: inspiratory crackles, No reduced air movement, No expiratory wheeze , No bronchial breath sounds Skin: other (Serous, mildly pustulant drainage from right lower panniculus wound , with some surrounding indurated skin) Neurologic: AAOx3 Psychiatric: not encephalopathic, thought process linear, anxious ICD10 Worksheet Patient Problems: Problems Problem Status Onset Sepsis Acute Cellulitis Acute DKA (diabetic ketoacidoses) Acute Skin ulcer of abdomen Acute
[2016-11-08] MEDS ORDERED: FUROSEMIDE 40 MG/4 ML VIAL IVP SCH (15:00)
[2016-11-08] MEDS: VANCOMYCIN HCL/NORMAL SALINE 250 ML IV SCH (15:47)
[2016-11-08] MEDS ORDERED: FUROSEMIDE 40 MG/4 ML VIAL IVP ONE (18:27)
[2016-11-08] MEDS: ATORVASTATIN CALCIUM 40 MG TAB PO SCH (20:26)
[2016-11-09 06:54] LABS: % IMMATURE GRANULYOCYTES 1.3 % (0.0-1.1); ABSOLUTE IMMATURE GRANULOCYTES 0.08 10^3/uL (0.00-0.10); ADD DIFF? NO; ADD MORPH? NO; ADD SCAN? NO; ATYPICAL LYMPHOCYTE FLAG 60 (0-99); FRAGMENT RBC FLAG 10 (0-99); HEMATOCRIT 24.1 % (38.0-47.0); HEMOGLOBIN 7.5 g/dL (12.6-16.3); LEFT SHIFT FLG 20 (0-99); LIPEMIA HEMOLYSIS FLAG 80 (0-99); MEAN CELL HEMOGLOBIN 29.1 pg (27.9-34.1); MEAN CELL HEMOGLOBIN CONCENTR. 31.1 g/dL (32.4-36.7); MEAN CELL VOLUME 93.4 fL (81.5-99.8); MEAN PLATELET VOLUME 10.1 fL (8.7-11.7); PLATELET CLUMPS FLAG 0 (0-99); PLATELET COUNT 339 10^3/uL (150-400); RED BLOOD CELL COUNT 2.58 10^6/uL (4.18-5.33); RED CELL DISTRIBUTION WIDTH 17.2 % (11.5-15.2)
[2016-11-09 07:16] LABS: INR 3.11 (0.83-1.16); PROTIME(PATIENT) 32.5 SEC (12.0-15.0)
[2016-11-09 07:29] LABS: ANION GAP 9 mEq/L (8-16); CALCIUM 7.6 mg/dL (8.5-10.4); CARBON DIOXIDE 19 mEq/l (22-31); CHLORIDE 112 mEq/L (97-110); CREATININE 1.1 mg/dL (0.6-1.0); GLOMERULAR FILTRATION RATE 48; GLUCOSE 216 mg/dL (70-100); MAGNESIUM 1.6 mg/dL (1.6-2.3); POTASSIUM 3.9 mEq/L (3.5-5.2); SODIUM 140 mEq/L (134-144)
[2016-11-09] MEDS ORDERED: MAGNESIUM SULF 1 GM/DEXTROSE 100 ML IV ONE (08:00)
--- NOTE | 2016-11-09 08:50 | PCMIDPN ---
Assessment/Plan: # Panniculitis likely portal 2 chronic wounds of unclear etiology --reviewed pump installer, feels would benefit from veriflow wound vac for debridement. Discussed with kathleen and Dr. Seay. Dr. Seay does not want to start this treatment. Will defer further management of the wounds to him. --vanco T okay. Continue vancomycin through 11/16 --no ID follow-up needed. # Allergies to abx/intolerances PCN -->severe itching Cephlexin -> severe itching CLindamycin > rash witnessed by me med Vancomycin 1gm IV daily#7 Micro Blood cx 11/03 (2) negative Subjective: Patient describes less pain associated with her abdomen Objective: Vital Signs Temp Pulse Resp BP Pulse Ox 36.8 C 97 20 115/51 L 95 11/09/16 02:45 11/09/16 02:45 11/09/16 02:45 11/09/16 02:45 11/09/16 02:45 Laboratory Results 11/09/16 06:45 11/09/16 06:45 11/08/16 11/09/16 11/10/16 05:59 05:59 05:59 Intake Total 1120 1820 Output Total 200 428 Balance 920 1392 - Physical Exam General Appearance: alert, no apparent distress EENT: No scleral icterus Respiratory: lungs clear Cardiac/Chest: regular rate, rhythm Extremities: pedal edema Abdomen: other (4 x 2 and 5 by 2 wounds with irregular border on abdomen. [place] edema present with erythema between 2 wounds immediately below the umbilicus. Improved today as compared to prior days) Skin: pallor, No rash Neuro/Psych: alert, normal mood/affect, oriented x 3 - Line/s RUE PICC Lines: No drainage, No erythema - Time Spent With Patient Time Spent with Patient: greater than 35 minutes (Care coordination with Dr. Farmer, wound care and Dr. Seay) Time Spent with Patient: Greater than 35 minutes spent on this patients care, greater than 50% of time spent counseling, educating, and coordinating care regarding the above mentioned plan. ICD10 Worksheet Patient Problems: Problems Problem Status Onset Sepsis Acute Cellulitis Acute DKA (diabetic ketoacidoses) Acute Skin ulcer of abdomen Acute
[2016-11-09] MEDS: INSULIN GLARGINE 100 UNITS/ML SYRINGE SC SCH (09:20)
[2016-11-09] MEDS: CALCIUM CARB W/VIT D 500 MG TAB PO SCH (09:21)
[2016-11-09] MEDS: predniSONE 1 MG TAB PO SCH (09:21)
[2016-11-09] MEDS: PANTOPRAZOLE SODIUM 40 MG TAB PO SCH (09:21)
[2016-11-09] MEDS: predniSONE 5 MG TAB PO SCH (09:21)
[2016-11-09] MEDS: FUROSEMIDE 40 MG/4 ML VIAL IVP SCH ×2 (09:21→15:20)
[2016-11-09] MEDS: VERAPAMIL ER 180 MG TAB PO SCH (09:22)
[2016-11-09] MEDS: FLUTICASONE IH SCH (09:50)
[2016-11-09] MEDS: SALMETEROL IH SCH (09:50)
--- NOTE | 2016-11-09 10:36 | PDIAF ---
- Diagnosis Diagnosis: Panniculitis associated with chronic wounds Code Status: Full Code - Medication Management Discharge Medications: Medications to Continue on Transfer Albuterol Sulfate [Proair Hfa] 2 puffs IH BID PRN 11/02/16 [Last Taken Unknown] Atorvastatin Calcium [Lipitor 40 mg (*)] 40 mg PO HS 11/02/16 [Last Taken Unknown] Calcium Carb W/Vit D [Calcium Carb W/Vit D 500/200 (*)] 500 mg PO DAILY [Last Taken Unknown] Colchicine [Colchicine (*)] 0.6 mg PO BID PRN 11/02/16 [Last Taken 11/02/16] FLUTICASONE/SALMETEROL [ADVAIR HFA 230-21 MCG INHALER] 1 puffs IH BID 11/02/16 [ Last Taken Unknown] Furosemide [Lasix 40 MG (*)] 40 mg PO DAILY 11/02/16 [Last Taken Unknown] Insulin Glargine [Lantus 100 UNITS/ML (*)] 30 unit SC BID 11/02/16 [Last Taken Unknown] Insulin Lispro [Humalog] 0 - 15 unit SQ TIDMEAL 11/02/16 [Last Taken Unknown] Lansoprazole [Prevacid] 30 mg PO BIDMEAL 11/02/16 [Last Taken Unknown] Metolazone [Zaroxolyn 2.5 mg (RX)] 2.5 mg PO DAILY PRN 11/02/16 [Last Taken Unknown] RX: metFORMIN HCL [Metformin HCl] 125 mg PO BID 11/02/16 [Last Taken Unknown] RX: predniSONE 1 mg PO DAILY 11/02/16 [Last Taken Unknown] RX: predniSONE 5 mg PO DAILY 11/02/16 [Last Taken Unknown] Verapamil ER [Calan SR/ER 180MG (*)] 180 mg PO BID 11/02/16 [Last Taken Unknown] Warfarin Sodium [Coumadin 5MG (*)] 5 mg PO SUMOWETHSA@11/02/16 [Last Taken Unknown] Warfarin Sodium [Coumadin 7.5MG (*)] 7.5 mg PO TUFR@16 11/02/16 [Last Taken Unknown] Employee'S Representative Antibiotics: vancomycin 1gm IV daily Employee'S Representative Antibiotic Stop Date: 11/16/16 Discharge Medications: Refer to the Discharge Home Medication list for PRN reason. PICC Care - Routine: Yes - Labs/Radiology BMP Date: 11/15/16 CBC Date: 11/12/16 CMP Date: 11/12/16 Vanco Trough Date and Time: 11/12/16 and 11/15/16 Call or Fax Lab and Imaging Results to: hi [phone] - Follow Up Care Current Providers and Referrals: Kathrine Cade MD [Primary Care Provider] - As per Instructions Umesh Seay MD [Medical Doctor] -
--- NOTE | 2016-11-09 10:52 | PDIAF ---
- Diagnosis Diagnosis: Panniculitis associated with chronic wounds Code Status: Full Code - Medication Management Discharge Medications: Medications to Continue on Transfer Albuterol Sulfate [Proair Hfa] 2 puffs IH BID PRN 11/02/16 [Last Taken Unknown] Atorvastatin Calcium [Lipitor 40 mg (*)] 40 mg PO HS 11/02/16 [Last Taken Unknown] Calcium Carb W/Vit D [Calcium Carb W/Vit D 500/200 (*)] 500 mg PO DAILY [Last Taken Unknown] Colchicine [Colchicine (*)] 0.6 mg PO BID PRN 11/02/16 [Last Taken 11/02/16] FLUTICASONE/SALMETEROL [ADVAIR HFA 230-21 MCG INHALER] 1 puffs IH BID 11/02/16 [ Last Taken Unknown] Insulin Glargine [Lantus 100 UNITS/ML (*)] 30 unit SC BID 11/02/16 [Last Taken Unknown] Insulin Lispro [Humalog] 0 - 15 unit SQ TIDMEAL 11/02/16 [Last Taken Unknown] Lansoprazole [Prevacid] 30 mg PO BIDMEAL 11/02/16 [Last Taken Unknown] Metolazone [Zaroxolyn] 2.5 mg PO DAILY PRN 11/02/16 [Last Taken Unknown] Verapamil ER [Calan SR/ER 180MG (*)] 180 mg PO BID 11/02/16 [Last Taken Unknown] metFORMIN HCL [Metformin HCl] 125 mg PO BID 11/02/16 [Last Taken Unknown] predniSONE 1 mg PO DAILY 11/02/16 [Last Taken Unknown] predniSONE 5 mg PO DAILY 11/02/16 [Last Taken Unknown] Acetaminophen [Tylenol 325mg (*)] 650 mg PO Q4HRS PRN #0 tab 11/09/16 [Last Taken Unknown] Furosemide [Lasix 40 MG (*)] 40 mg PO BID #60 tab 11/09/16 [Last Taken Unknown] Vancomycin HCl/Normal Saline [Vancomycin 1 gm (Premix)] 1 gm IV Q24H #7 bag [Last Taken Unknown] Warfarin Sodium [Coumadin 5MG (*)] 5 mg PO DAILY #30 tab 11/09/16 [Last Taken Unknown] Marina Sales And Service Supervisor Antibiotics: vancomycin 1gm IV daily Snf Antibiotic Stop Date: 11/16/16 Discharge Medications: Refer to the Discharge Home Medication list for PRN reason. PICC Care - Routine: Yes - Orders Services needed: Registered Nurse, Certified Pediatric Nephrologist, Master Inspector Wreath , Physical Therapy Diet Recommendation: ADA 2000 consistent carb Diet Texture: Regular Texture Diet Weigh Patient: daily (keep daily weight log) Wound Care Instructions: moist to dry dressing changes daily, place wound vac at SNF when able, then regular wound vac maintenance/care Activity/Weight Bearing Restrictions: as tolerates w/ walker - Labs/Radiology BMP Date: 11/15/16 CBC Date: 11/12/16 CMP Date: 11/12/16 UA Date: 11/12/16 (get weekly) Vanco Trough Date and Time: 11/12/16 and 11/15/16 Call or Fax Lab and Imaging Results to: Dr. Reddy [phone] Cade - Follow Up Care Current Providers and Referrals: Kathrine Cade MD [Primary Care Provider] - As per Instructions Umesh Seay MD [Medical Doctor] -
[2016-11-09] MEDS: INSULIN LISPRO 100 UNIT/ML SC SCH ×2 (10:55→15:20)
--- NOTE | 2016-11-09 11:21 | PDIAF ---
- Diagnosis Diagnosis: Panniculitis associated with chronic wounds Code Status: Full Code - Medication Management Discharge Medications: Medications to Continue on Transfer Albuterol Sulfate [Proair Hfa] 2 puffs IH BID PRN 11/02/16 [Last Taken Unknown] Atorvastatin Calcium [Lipitor 40 mg (*)] 40 mg PO HS 11/02/16 [Last Taken Unknown] Calcium Carb W/Vit D [Calcium Carb W/Vit D 500/200 (*)] 500 mg PO DAILY [Last Taken Unknown] Colchicine [Colchicine (*)] 0.6 mg PO BID PRN 11/02/16 [Last Taken 11/02/16] FLUTICASONE/SALMETEROL [ADVAIR HFA 230-21 MCG INHALER] 1 puffs IH BID 11/02/16 [ Last Taken Unknown] Insulin Glargine [Lantus 100 UNITS/ML (*)] 30 unit SC BID 11/02/16 [Last Taken Unknown] Insulin Lispro [Humalog] 0 - 15 unit SQ TIDMEAL 11/02/16 [Last Taken Unknown] Lansoprazole [Prevacid] 30 mg PO BIDMEAL 11/02/16 [Last Taken Unknown] Metolazone [Zaroxolyn] 2.5 mg PO DAILY PRN 11/02/16 [Last Taken Unknown] Verapamil ER [Calan SR/ER 180MG (*)] 180 mg PO BID 11/02/16 [Last Taken Unknown] metFORMIN HCL [Metformin HCl] 125 mg PO BID 11/02/16 [Last Taken Unknown] predniSONE 1 mg PO DAILY 11/02/16 [Last Taken Unknown] predniSONE 5 mg PO DAILY 11/02/16 [Last Taken Unknown] Acetaminophen [Tylenol 325mg (*)] 650 mg PO Q4HRS PRN #0 tab 11/09/16 [Last Taken Unknown] Furosemide [Lasix 40 MG (*)] 40 mg PO BIDDIUR #60 tab 11/09/16 [Last Taken Unknown] Vancomycin HCl/Normal Saline [Vancomycin 1 gm (Premix)] 1 gm IV Q24H #7 bag [Last Taken Unknown] Warfarin Sodium [Coumadin 5MG (*)] 5 mg PO DAILY #30 tab 11/09/16 [Last Taken Unknown] Automotive Parts Salesperson Antibiotics: vancomycin 1gm IV daily Group Home Antibiotic Stop Date: 11/16/16 Discharge Medications: Refer to the Discharge Home Medication list for PRN reason. PICC Care - Routine: Yes - Orders Services needed: Registered Nurse, Certified Taxation Economist, Master Patented Hogshead Assembler , Physical Therapy Diet Recommendation: ADA 2000 consistent carb Diet Texture: Regular Texture Diet Weigh Patient: daily (keep daily weight log) Wound Care Instructions: moist to dry dressing changes daily, place wound vac at SNF when able, then regular wound vac maintenance/care Activity/Weight Bearing Restrictions: as tolerates w/ walker - Labs/Radiology BMP Date: 11/15/16 CBC Date: 11/12/16 CMP Date: 11/12/16 UA Date: 11/12/16 (get weekly) Vanco Trough Date and Time: 11/12/16 and 11/15/16 Call or Fax Lab and Imaging Results to: Dr. Reddy [phone] Cade - Follow Up Care Current Providers and Referrals: Kathrine Cade MD [Primary Care Provider] - As per Instructions Umesh Seay MD [Medical Doctor] -
[2016-11-09 13:08] VITALS: BP 108/50; PULSE 86; RESP 16; TEMP 98.3; O2SAT 93
--- NOTE | 2016-11-09 13:21 | PDIAF ---
- Diagnosis Diagnosis: Panniculitis associated with chronic wounds Code Status: Full Code - Medication Management Discharge Medications: Medications to Continue on Transfer Albuterol Sulfate [Proair Hfa] 2 puffs IH BID PRN 11/02/16 [Last Taken Unknown] Atorvastatin Calcium [Lipitor 40 mg (*)] 40 mg PO HS 11/02/16 [Last Taken Unknown] Calcium Carb W/Vit D [Calcium Carb W/Vit D 500/200 (*)] 500 mg PO DAILY [Last Taken Unknown] Colchicine [Colchicine (*)] 0.6 mg PO BID PRN 11/02/16 [Last Taken 11/02/16] FLUTICASONE/SALMETEROL [ADVAIR HFA 230-21 MCG INHALER] 1 puffs IH BID 11/02/16 [ Last Taken Unknown] Insulin Glargine [Lantus 100 UNITS/ML (*)] 30 unit SC BID 11/02/16 [Last Taken Unknown] Insulin Lispro [Humalog] 0 - 15 unit SQ TIDMEAL 11/02/16 [Last Taken Unknown] Lansoprazole [Prevacid] 30 mg PO BIDMEAL 11/02/16 [Last Taken Unknown] Metolazone [Zaroxolyn] 2.5 mg PO DAILY PRN 11/02/16 [Last Taken Unknown] Verapamil ER [Calan SR/ER 180MG (*)] 180 mg PO BID 11/02/16 [Last Taken Unknown] metFORMIN HCL [Metformin HCl] 125 mg PO BID 11/02/16 [Last Taken Unknown] predniSONE 1 mg PO DAILY 11/02/16 [Last Taken Unknown] predniSONE 5 mg PO DAILY 11/02/16 [Last Taken Unknown] Acetaminophen [Tylenol 325mg (*)] 650 mg PO Q4HRS PRN #0 tab 11/09/16 [Last Taken Unknown] Furosemide [Lasix 40 MG (*)] 40 mg PO BIDDIUR #60 tab 11/09/16 [Last Taken Unknown] Potassium Chloride 20 meq PO DAILY #30 tablet.er 11/09/16 [Last Taken Unknown] Vancomycin 1 gm/Dextrose [Vancomycin 1 gm (Premix)] 1 gm IV DAILY #7 bag [Last Taken Unknown] Warfarin Sodium [Coumadin 5MG (*)] 5 mg PO DAILY #30 tab 11/09/16 [Last Taken Unknown] Custodial Antibiotics: vancomycin 1gm IV daily Custodial Antibiotic Stop Date: 11/16/16 Discharge Medications: Refer to the Discharge Home Medication list for PRN reason. PICC Care - Routine: Yes - Orders Services needed: Registered Nurse, Certified Machine Precision Etcher, Master Photographic Process Worker , Physical Therapy Diet Recommendation: ADA 2000 consistent carb Diet Texture: Regular Texture Diet Weigh Patient: daily (keep daily weight log) Wound Care Instructions: moist to dry dressing changes daily, place wound vac at SNF when able, then regular wound vac maintenance/care Activity/Weight Bearing Restrictions: as tolerates w/ walker - Labs/Radiology BMP Date: 11/15/16 CBC Date: 11/12/16 CMP Date: 11/12/16 UA Date: 11/12/16 (get weekly) Vanco Trough Date and Time: 11/12/16 and 11/15/16 Call or Fax Lab and Imaging Results to: Dr. Reddy [phone] Cade - Follow Up Care Current Providers and Referrals: Kathrine Cade MD [Primary Care Provider] - As per Instructions Umesh Seay MD [Medical Doctor] -
--- NOTE | 2016-11-09 13:33 | PDDCSUM ---
Discharge Summary Discharge Summary: DISCHARGE SUMMARY FOLLOW-UP ITEMS: Follow-up INR next week, follow up CBC and chemistries next week, reduce dosage of Lasix to once daily once patient appears euvolemic DATE OF ADMISSION: 11/02/2016 DATE OF DISCHARGE: 11/09/2016 DISCHARGE DIAGNOSES: 1. Acute on chronic polymicrobial abdominal wall cellulitis/panniculitis 2. Sepsis present on admission 3. Acute on chronic diastolic congestive heart failure exacerbation 4. Chronic COPD 5. Diabetes mellitus type 2 6. Chronic kidney disease stage 3 7. Acute metabolic acidosis 8. Persistent atrial fibrillation 9. History of deep venous thrombosis 10. Chronic coronary artery disease 11. Chronic obstructive sleep apnea 12. Morbid obesity with BMI of 44 13. Anemia of chronic inflammatory disease CONSULTATIONS: General surgery by Dr. Seay, infectious Disease PROCEDURES / IMAGING: PICC line insertion CHIEF COMPLAINT: Abdominal pain and wound drainage SUBJECTIVE: Patient is feeling well at time of discharge, she is agreeing to the terms of her wound care at [facility] PHYSICAL EXAM ON DISCHARGE: Systolic blood pressure is 130, heart rate 80, afebrile overnight, satting well on room air, weight is 96.5 kg, lungs are mostly clear with faint crackles in the bilateral bases on inspiration, no expiratory wheezes, lower extremity edema is 1+ bilaterally LABS ON DISCHARGE: INR is 3.1, BNP 5200, Vanco trough 13.4, potassium 3.9, creatinine 1.1, white blood cell count 6400, hemoglobin 7.5, platelets [id number] HOSPITAL COURSE BY PROBLEM: 1. Acute on chronic polymicrobial abdominal wall cellulitis/panniculitis. Patient has chronically had panniculitis along the right abdominal fat fold with necrosis. This area became increasingly erythematous and indurated. It became a nidus of active infection. She was initiated on broad-spectrum antibiotics secondary to development of sepsis. She was seen by General surgery , Dr. Seay, and he recommended moist to dry dressings until a wound VAC can be placed at custodial facility and then wound management will be through the wound VAC until it is appropriate to be removed. It was his impression that the infected area was improving at time of discharge. The antibiotics have been narrowed to vancomycin will be continued through 11/16. The patient will then begin following up with Dr. Seay after she is discharged from the custodial facility. 2. Sepsis. Present on admission, evidenced by sepsis-2, international our consensus definition on sepsis-2 criteria, including fever, tachycardia, tachypnea, leukocytosis, clear source of infection, resulting in autonomic dysregulation in the setting of infection requiring broad-spectrum IV antibiotics and IV fluids. Her leukocytosis has improved and she is currently afebrile. 3. Acute on chronic diastolic congestive heart failure exacerbation. Evidenced by CHF on chest x-ray, elevated BNP around 5000, diastolic dysfunction, weight gain of approximately 10 kg during this hospitalization. She received 2 doses of IV Lasix and experienced good diuresis. She will be discharged on 40 mg twice daily which is double her normal dose. She will receive supplemental potassium at time of discharge. I have recommended keeping a daily weight log and rechecking her electrolytes next week with results to her primary care provider. She should be reduced to 40 mg once daily once she appears euvolemic. 4. Chronic COPD. No evidence of acute exacerbation, steroid dependent with chronic immunocompromised state. 5. Diabetes mellitus type 2. Patient was continued on Lantus and sliding scale. 6. Chronic kidney disease stage 3. Her creatinine level remained at baseline during this hospitalization. 7. Acute metabolic acidosis. Non-anion gap possibly secondary to diarrhea, resolved. 8. Persistent atrial fibrillation. Patient is chronically on iris blocking agent, continue verapamil, INR was supratherapeutic in the setting of antibiotics, Coumadin was temporarily held, will be re-initiated at a lower dosage at time of discharge at 5 mg daily. She has a follow-up INR as an outpatient with dose adjustment to be performed either at the custodial facility through Dr. Cade's office. 9. History of deep venous thrombosis. Continue Coumadin. 10. Anemia of chronic inflammatory disease. Patient's hemoglobin level remained stable between 7 and 8, she was asymptomatic from this, her discharge hemoglobin level 7.5 and does not require transfusion at this time. She is not actively bleeding. Her hemoglobin level will up trend chronically as her panniculitis resolved. 11. Chronic coronary artery disease. Patient was continued on her statin anticoagulation. 12. Chronic obstructive sleep apnea. Patient chronically refuses CPAP, continue supplemental oxygen at nighttime. 13. Morbid obesity with BMI of 44. Patient is at increased risk of morbidity and mortality as well as poor wound healing. DISCHARGE MEDICATIONS: Please see official discharge medication reconciliation sheet in chart , Lasix 40 mg twice daily with supplemental potassium, vancomycin 1 g once daily x7 additional days, dose adjusted Coumadin 5 mg daily. DISCHARGE INSTRUCTIONS: Place wound VAC once at custodial facility, continue moist to dry dressing changes until that time, send labs as ordered in the inner agency form , reduced dosage of Lasix and potassium according to next week's electrolytes., follow INR and dose adjust Coumadin. TIME SPENT: Greater than 30 minutes were spent on direct patient care, as well as discharge planning and preparation.
[2016-11-09] MEDS: VANCOMYCIN HCL/NORMAL SALINE 250 ML IV SCH (15:21)
[2016-11-09] MEDS ORDERED: WARFARIN SODIUM 5 MG TAB PO ONE (16:00)
--- NOTE | 2016-11-09 17:42 | ECHO ---
[id number] + + [address] : : [place] [address] : : [phone] + + Adult Echocardiographic Report + ------+ :Name: ROSLYN PEREIRA RStudy Date: 11/08/2016 04:15 PM : : Hospital Admission Number: [id number] Locatio n: 207: :: 1940 Gender: Female Height: 150 in : :Age: 76 yrs Race: WH : :Reason For Study: Eval for CHF/RV function : + ------+ MMode/2D Measurements \T\ Calculations IVSd: 1.1 cm LVIDd: 5.0 cm FS: 20.6 % Ao root diam: 3.6 cm LVPWd: 1.1 cm LVIDs: 4.0 cm EDV(Teich): 118.0 ml LA dimension: 4.9 cm ESV(Teich): 68.7 ml EF(Teich): 41.8 % Normal Measurement Values: + + :LVIDd (3.5-5.7cm) IVSd (0.6-1.1cm) LVPWd (0.6-1.1cm) Aortic Root (2.0-3.7cm)Left Atrium (1.5-4.0cm): :LV Vol(d) (76-115ml) LV Vol(s) (29-48ml) Ejec Fraction (50-65%)PV Leonidas (0.6- 1.2m/s) TV Leonidas (0.4-1.0m/s) : :MV E Leonidas (0.8-1.0m/s)MV A Leonidas (0.3-1.0m/s)LVOT Leonidas (0.7-1.2m/s) Asc Ao Leonidas ( 0.9-1.8m/s) : + + Doppler Measurements \T\ Calculations MV E max leonidas: 123.4 cm/sec Ao mean P.1 mmHg TR max leonidas: 279.6 cm/sec Ao V2 mean: 104.0 cm/secTR max P.3 mmHg Ao V2 VTI: 29.7 cm RAP systole: 10.0 mmHg RVSP(TR): 41.3 mmHg Left Ventricle The left ventricle is normal in size. There is normal left ventricular wall thickness. Left ventricular systolic function is normal. Ejection Fraction = 60-65%. There is Doppler evidence for diastolic dysfunction. Septal motion is consistent with conduction abnormality. Right Ventricle The right ventricle is normal in size and function. Atria The left atrium is moderately dilated. The right atrium is moderately dilated. Mitral Valve Calcified mitral apparatus. There is moderate to severe mitral annular calcification. There is mild mitral regurgitation. Tricuspid Valve Normal tricuspid valve. There is moderate to severe tricuspid regurgitation. Right ventricular systolic pressure is 40mmHg. There is Doppler evidence for mild pulmonary hypertension. Aortic Valve The aortic valve is trileaflet. The aortic valve opens well. Mild AO calcification. There is no aortic stenosis. There is no aortic insufficiency. Pulmonic Valve The pulmonic valve is not well visualized. There is no pulmonic valvular regurgitation. Great Vessels The aortic root is normal size. Pericardium/Pleural There is no pericardial effusion. Conclusion A complete two-dimensional transthoracic echocardiogram was performed (2D, M-mode, Doppler and color flow Doppler). Compared to the echo done at [facility] 12/02, the amount of TR has significantly increased. (1) Left ventricular systolic ejection fraction was normal (60-65%) - septal wall motion was consistent with conduction abnormality (2) No left ventricular hypertrophy (3) Diastolic dysfunction was present (4) Normal right ventricular size and function (5) Moderate biatrial dilation (6) Mild mitral regurgitation with moderate to severe mitral annular calcification (7) Trileaflet aortic valve with mild sclerosis, no stenosis, and no insufficiency (8) Moderate to severe tricuspid regurgation - RVSP was estimated to be 40 mm Hg (9) Poor visualization of pulmonic valve without appreciable insufficiency noted by doppler (10) No comparison echocardiograms Final Reading Physician: Josep Baca signed on 11/09/2016 05:41 PM Ordering Physician: Kelechi Farmer Performed By: Annette Grant RDCS
== END 2016-11-09 16:54 | DRG 871 ==
LOC: F2N 19:47 → F2W 11-05 09:22
PROVIDERS: ADMIT Internal Medicine; ATTEND Internal Medicine
PROC: 02HV33Z Insertion of Infusion Device into Superior Vena Cava, Percutaneous Approach (ICD-10-PCS; principal; 2016-11-05)
DX: A41.9 Sepsis, unspecified organism (principal); I50.33 Acute on chronic diastolic (congestive) heart failure; L03.311 Cellulitis of abdominal wall; E87.2 Acidosis; I48.1 Persistent atrial fibrillation; Z68.42 Body mass index [BMI] 45.0-49.9, adult; M79.3 Panniculitis, unspecified; J44.9 Chronic obstructive pulmonary disease, unspecified; E11.22 Type 2 diabetes mellitus with diabetic chronic kidney disease; N18.3 Chronic kidney disease, stage 3 (moderate); I25.10 Atherosclerotic heart disease of native coronary artery without angina pectoris; G47.33 Obstructive sleep apnea (adult) (pediatric); E83.42 Hypomagnesemia; R19.7 Diarrhea, unspecified; E66.01 Morbid (severe) obesity due to excess calories; D63.8 Anemia in other chronic diseases classified elsewhere; Z86.718 Personal history of other venous thrombosis and embolism; Z79.01 Long term (current) use of anticoagulants; Z79.52 Long term (current) use of systemic steroids
CPT/HCPCS: 96365; 96366; 97116-GP; 97162-GP; 97167-GO; 97530-GP; 97535-GO; C1751; G8978-GP-CK; G8979-GP-CI; G8987-GO-CL; G8988-GO-CI; J1815; J1956; J2997; J3370; J3475

== ENCOUNTER 2016-11-17 09:13 | Inpatient (IN) | payer OTHER ==
--- NOTE | 2016-11-17 09:13 | EDPHY ---
H & P Constitutional: Initial Vital Signs Temperature (C) 37.7 C 11/17/16 09:13 Heart Rate 127 H 11/17/16 09:13 Respiratory Rate 20 11/17/16 09:13 Blood Pressure 158/76 H 11/17/16 09:13 O2 Sat (%) 86 L 11/17/16 09:13 O2 Delivery Mode Nasal Cannula O2 (L/minute) 2 Allergies/Adverse Reactions: iodine [Iodine] Allergy (Intermediate, Verified 09/09/16 15:37) UNSURE Penicillins Allergy (Intermediate, Verified 09/09/16 15:37) Rash cephalexin monohydrate [From Keflex] Allergy (Verified 09/09/16 15:37) Home Medications: Medication Instructions Recorded Albuterol Sulfate [Proair Hfa] 2 puffs IH BID PRN 11/02/16 Atorvastatin Calcium [Lipitor 40 40 mg PO HS 11/02/16 mg (*)] FLUTICASONE/SALMETEROL [ADVAIR HFA 1 puffs IH BID 11/02/16 230-21 MCG INHALER] Insulin Glargine [Lantus 100 30 unit SC BID 11/02/16 UNITS/ML (*)] Insulin Lispro [Humalog] 0 - 15 unit SQ BIDAC PRN 11/02/16 Lansoprazole [Prevacid] 30 mg PO BIDMEAL 11/02/16 Verapamil ER [Calan SR/ER 180MG 180 mg PO BID 11/02/16 (*)] metFORMIN HCL [Metformin HCl] 250 mg PO DAILY 11/02/16 predniSONE 1 mg PO DAILY 11/02/16 predniSONE 5 mg PO DAILY 11/02/16 Acetaminophen [Tylenol 325mg (*)] 650 mg PO Q4HRS PRN #0 tab 11/09/16 Vancomycin 1 gm/Dextrose 1 gm IV DAILY #7 bag 11/09/16 [Vancomycin 1 gm (Premix)] Calcium Carbonate/Vitamin D2 1 each PO DAILY 11/17/16 [Oyster Shell Calcium-Vit D Tab] Furosemide [Lasix 40 MG (*)] 40 mg PO DAILY@12 11/17/16 Furosemide [Lasix 40 MG (*)] 80 mg PO DAILY@08 11/17/16 Warfarin Sodium [Coumadin 3MG (*)] 4.5 mg PO DAILY16 11/17/16 Medical Decision Making - Diagnostics Imaging Results: Imaging Impressions Chest X-Ray 11/17/16 09:25 Impression: Chronic compensated CHF with a superimposed left lower lobe pneumonia. ED Course/Re-evaluation: CHIEF COMPLAINT: Leg pain, abdominal wound pain. HISTORY OF PRESENT ILLNESS: The patient is a 76-year-old female with a history of diabetes who presents via EMS with 10/10 left lower leg wound pain, abdominal wound pain, and fever. She has been in a wound clinic for the past 10 days for her abdominal wound and received daily IV Vancomycin over that period of time. Providers at her wound clinic also noticed an increasing area of firmness over her abdomen. She denies cough, recent sickness, urinary symptoms, or other complaints. EMS administered 100mcg IV Fentanyl en route. She is anticoagulated on Coumadin. REVIEW OF SYSTEMS: A 10 point review of systems was performed and is negative with the exception of the elements mentioned in the history of present illness. PHYSICAL EXAM: HR, BP, O2 Sat, RR. Temp noted General Appearance: Alert, well hydrated, appropriate, and non-toxic appearing. Head: Atraumatic without scalp tenderness or obvious injury Eyes: Pupils equal, round, reactive to light and accommodation, EOMI, no trauma , no injection. Ears: Clear bilaterally, no perforation, normal landmarks Nose: Atraumatic, no rhinorrhea, clear. Throat: There is no erythema or exudates, no lesions, normal tonsils, mucus membranes moist. Neck: Supple, 2+ carotid upstroke, nontender, no lymphadenopathy. Respiratory: No retractions, no distress, no wheezes, and no accessory muscle use. Lungs are clear to auscultation bilaterally. Cardiovascular: Regular rate and rhythm, no murmurs, rubs, or gallops. Bilateral carotid, radial, dorsalis pedis, and posterior tibial pulses intact. Good capillary refill all extremities. Gastrointestinal: Abdomen is soft, nontender, non-distended, no masses, no rebound, no guarding, no peritoneal signs. Wound vac in place over lower abdomen. Cellulitis under wound vac. Musculoskeletal: Normal active ROM of all extremities, atraumatic. Neurological: Alert, appropriate, and interactive. The patient has normal DTRs and non-focal cranial nerves, motor, sensory, and cerebellar exam. Skin: No rashes, good turgor, no nodules on palpation. Left leg: varicosities to left friend with chronic venous stasis. Past medical history: Diabetes, atrial fibrillation, gout, CHF, DVT, CAD, cardiac stent, asthma/COPD. Family history: N/A. Social history: Here alone. DIAGNOSTICS/PROCEDURES/CRITICAL CARE TIME: The 12 lead EKG was interpreted by myself. See hard copy and/or "tracemaster" electronic copy for interpretation. Atrial fibrillation, ventricular bigeminy. I independently reviewed the patient's chest x-ray on the PACS system. My interpretation: unlikely to be left lower lobe pneumonia. Most likely fluid overload. See Imaging Results section for official radiologist chest x-ray read. DIFFERENTIAL DIAGNOSIS: The differential diagnosis for the patient includes, but is not limited to: sepsis, severe sepsis, viral syndrome, cellulitis. MEDICAL DECISION MAKIN-year-old female with a history of diabetes presents with pain in her leg and abdomen wounds. I met EMS on arrival and obtained a report from the assistant professor of radiology. She was sent from her wound care clinic due to increasing pain in her wounds and an increasing area of firmness. On exam she has a wound vac in place over her lower abdomen but there is panniculitis present beneath. Her left lower leg She is tachycardic at 117 on arrival, however she is chronically in atrial fibrillation so this does not contribute toward sepsis criteria. An IV was established and labs ordered. EKG, chest x-ray ordered. Dr. Seay's office has been paged. 0937: Consulted with Dr. Weiner, surgery. He recommends admission to hospitalist service and will consult on the patient. WBC elevated at 13.4k. Respiratory rate is normal. She is not hypotensive. She is tachycardic due to chronic atrial fibrillation. This patient does not meet sepsis criteria. Her COAG panel shows normal therapeutic levels of Coumadin. 1014: Consulted with Ana Cristina Montoya, hospitalist. She accepts admission for Dr. Giordano, hospitalist. - Data Points Laboratory Results: Laboratory Results 11/17/16 09:19 11/17/16 09:19 11/17/16 11/17/16 11/17/16 09:35 09:19 09:19 WBC RBC Hgb Hct MCV MCH MCHC RDW Plt Count MPV Neut % (Auto) Lymph % (Auto) Walker % (Auto) Eos % (Auto) Baso % (Auto) Nucleat RBC Rel Count Absolute Neuts (auto) Absolute Lymphs (auto) Absolute Monos (auto) Absolute Eos (auto) Absolute Basos (auto) Absolute Nucleated RBC Immature Gran % Immature Gran # PT 33.3 SEC H SEC (12.0-15.0) INR 3.21 H (0.83-1.16) APTT 39.6 SEC H SEC (23.0-38.0) VBG Lactic Acid 1.2 mmol/L mmol/L (0.7-2.1) Sodium 146 mEq/L H mEq/L (134-144) Potassium 3.7 mEq/L mEq/L (3.5-5.2) Chloride 104 mEq/L mEq/L (97-110) Carbon Dioxide 27 mEq/l mEq/l (22-31) Anion Gap 15 mEq/L mEq/L (8-16) BUN 20 mg/dL mg/dL (7-23) Creatinine 0.9 mg/dL mg/dL (0.6-1.0) Estimated GFR > 60 Glucose 75 mg/dL mg/dL (70-100) Calcium 7.6 mg/dL L mg/dL (8.5-10.4) Total Bilirubin 1.4 mg/dL mg/dL (0.1-1.4) 11/17/16 09:19 WBC 13.14 10^3/uL H 10^3/uL (3.80-9.50) RBC 3.32 10^6/uL L 10^6/uL (4.18-5.33) Hgb 9.6 g/dL L g/dL (12.6-16.3) Hct 31.1 % L % (38.0-47.0) MCV 93.7 fL fL (81.5-99.8) MCH 28.9 pg pg (27.9-34.1) MCHC 30.9 g/dL L g/dL (32.4-36.7) RDW 17.6 % H % (11.5-15.2) Plt Count 564 10^3/uL H 10^3/uL (150-400) MPV 9.4 fL fL (8.7-11.7) Neut % (Auto) 83.8 % H % (39.3-74.2) Lymph % (Auto) 9.2 % L % (15.0-45.0) Walker % (Auto) 6.1 % % (4.5-13.0) Eos % (Auto) 0.2 % L % (0.6-7.6) Baso % (Auto) 0.2 % L % (0.3-1.7) Nucleat RBC Rel Count 0.2 % % (0.0-0.2) Absolute Neuts (auto) 11.01 10^3/uL H 10^3/uL (1.70-6.50) Absolute Lymphs (auto) 1.21 10^3/uL 10^3/uL (1.00-3.00) Absolute Monos (auto) 0.80 10^3/uL 10^3/uL (0.30-0.80) Absolute Eos (auto) 0.02 10^3/uL L 10^3/uL (0.03-0.40) Absolute Basos (auto) 0.03 10^3/uL 10^3/uL (0.02-0.10) Absolute Nucleated RBC 0.03 10^3/uL H 10^3/uL (0-0.01) Immature Gran % 0.5 % % (0.0-1.1) Immature Gran # 0.07 10^3/uL 10^3/uL (0.00-0.10) PT INR APTT VBG Lactic Acid Sodium Potassium Chloride Carbon Dioxide Anion Gap BUN Creatinine Estimated GFR Glucose Calcium Total Bilirubin Medications Given: Discontinued Medications Acetaminophen (Tylenol) 1,000 mg PO ONCE ONE Stop: 11/17/16 10:42 Last Admin: 11/17/16 10:59 Dose: 1,000 mg Hydromorphone HCl (Dilaudid) 0.5 mg IVP EDNOW ONE Stop: 11/17/16 09:57 Last Admin: 11/17/16 10:00 Dose: 0.5 mg Sodium Chloride (Ns) 1,000 mls @ 0 mls/hr IV ONCE ONE PRN Reason: Wide Open Stop: 11/17/16 09:57 Last Admin: 11/17/16 10:01 Dose: 1,000 mls Ketorolac Tromethamine (Toradol) 30 mg IVP EDNOW ONE Stop: 11/17/16 10:17 Last Admin: 04/29/17 10:20 Dose: 30 mg Departure - Departure Disposition: [facility] Clinical Impression: Panniculitis, Pain Peripheral neuropathy Qualifiers: Peripheral neuropathy type: polyneuropathy, unspecified Qualified Code(s): G62.9 - Polyneuropathy, unspecified Condition: Fair Report Scribed for: Gabino Rodriguez Report Scribed by: Jun Nails Date of Report: 11/17/16 Time of Report: 09:25
--- NOTE | 2016-11-17 09:28 | CPEKG ---
Heart Rate: 105 RR Interval: 571 QRSD Interval: 86 QT Interval: 332 QTC Interval: 439 QRS [place]: -11 T Wave [place]: 150 EKG Severity - ABNORMAL ECG - EKG Impression: ATRIAL FIBRILLATION, V-RATE 90-122 EKG Impression: VENTRICULAR BIGEMINY Electronically Signed By: Gabino Rodriguez 17-Nov-2016 14:50:33
[2016-11-17 09:32] LABS: % IMMATURE GRANULYOCYTES 0.5 % (0.0-1.1); ABSOLUTE IMMATURE GRANULOCYTES 0.07 10^3/uL (0.00-0.10); ABSOLUTE NRBC COUNT 0.03 10^3/uL (0-0.01); ADD DIFF? NO; ADD MORPH? NO; ADD SCAN? NO; ATYPICAL LYMPHOCYTE FLAG 20 (0-99); FRAGMENT RBC FLAG 0 (0-99); HEMATOCRIT 31.1 % (38.0-47.0); HEMOGLOBIN 9.6 g/dL (12.6-16.3); LEFT SHIFT FLG 10 (0-99); LIPEMIA HEMOLYSIS FLAG 80 (0-99); MEAN CELL HEMOGLOBIN 28.9 pg (27.9-34.1); MEAN CELL HEMOGLOBIN CONCENTR. 30.9 g/dL (32.4-36.7); MEAN CELL VOLUME 93.7 fL (81.5-99.8); MEAN PLATELET VOLUME 9.4 fL (8.7-11.7); NRBC-AUTO% 0.2 % (0.0-0.2); PLATELET CLUMPS FLAG 0 (0-99); PLATELET COUNT 564 10^3/uL (150-400); RED BLOOD CELL COUNT 3.32 10^6/uL (4.18-5.33); RED CELL DISTRIBUTION WIDTH 17.6 % (11.5-15.2)
[2016-11-17 09:40] LABS: ANION GAP 15 mEq/L (8-16); BILIRUBIN,TOTAL 1.4 mg/dL (0.1-1.4); CALCIUM 7.6 mg/dL (8.5-10.4); CARBON DIOXIDE 27 mEq/l (22-31); CHLORIDE 104 mEq/L (97-110); CREATININE 0.9 mg/dL (0.6-1.0); GLOMERULAR FILTRATION RATE > 60; GLUCOSE 75 mg/dL (70-100); POTASSIUM 3.7 mEq/L (3.5-5.2); SODIUM 146 mEq/L (134-144)
[2016-11-17 09:42] LABS: INR 3.21 (0.83-1.16); PROTIME(PATIENT) 33.3 SEC (12.0-15.0)
[2016-11-17 09:43] LABS: APTT 39.6 SEC (23.0-38.0)
[2016-11-17] MEDS ORDERED: HYDROmorphONE/DILAUDID 1 MG/ML SYR IVP ONE (09:56)
[2016-11-17] MEDS ORDERED: NS 1,000 ML IV ONE (09:56)
[2016-11-17] MEDS ORDERED: KETOROLAC 30 MG/1 ML SDV IVP ONE (10:16)
[2016-11-17] MEDS ORDERED: ACETAMINOPHEN 500 MG TAB PO ONE (10:41)
[2016-11-17] MEDS ORDERED: ACETAMINOPHEN 325 MG TAB PO PRN (12:19)
[2016-11-17] MEDS ORDERED: ONDANSETRON 4 MG/2 ML VIAL IVP PRN (12:19)
[2016-11-17] MEDS ORDERED: D50W 25 GM/50 ML SYR IVP PRN (12:20)
[2016-11-17] MEDS ORDERED: NS 1,000 ML IV SCH (12:30)
[2016-11-17] MEDS ORDERED: FUROSEMIDE 40 MG/4 ML VIAL IVP ONE ×2 (13:30→16:00)
--- NOTE | 2016-11-17 13:47 | PCMIDPN ---
Assessment/Plan: # Fever, mild tachycardia, nl BP, leukocytosis associated with severe L medial leg pain query cellulitis versus abscess. Technically patient meets sepsis criteria but overall looks fairly well. Also could consider Line infection. --agree with imaging LLE, exam with some fluctuance --continue vancomycin, one explanation for new disease due to SA/strep while on vancomycin would be abscess. Vancomycin-R unlikely, NO h/o MRSA - on vancomycin because of antibiotic allergies. --follow blood cx --h/o wound cx showing PsA, add meropenem 1gm IV q8h, standard dosing for CrCl > 50 --check vancomycin T # Panniculitis: essentially resolved, significant improvement since my last exam. No imaging need because of significant improvement # Allergies to abx/intolerances PCN -->severe itching Cephlexin -> severe itching CLindamycin > rash witnessed by me Coordination of care with Perla Giordano MD Subjective: patient did not like the [facility] severe L medial ankle/leg pain x 3 days. Patient denies trauma Abdominal pain associated with panniculitis has now resolved No diarrhea, dysuria, cough or shortness of breath Objective: Vital Signs Temp Pulse Resp BP Pulse Ox 38.1 C 107 H 18 128/65 H 95 11/17/16 12:09 11/17/16 12:09 11/17/16 12:09 11/17/16 12:09 11/17/16 12:09 11/16/16 11/17/16 11/18/16 05:59 05:59 05:59 Intake Total 500 Balance 500 - Physical Exam General Appearance: alert, no apparent distress, obese EENT: pale conjunctiva, No thrush Respiratory: lungs clear Neck: supple Cardiac/Chest: tachycardia Extremities: calf tenderness (Left lower extremity), erythema (left medial ankle with erythema and fluctuance) Abdomen: non-tender, soft, other (Pannus with significant decrease in erythema compared to my last exam, wound VAC in place, still some induration in the mid abdominal region) Pelvic Exam: No bond Skin: No rash, No embolic lesions Neuro/Psych: alert, normal mood/affect, oriented x 3 - Line/s RUE PICC Lines: other (PICC dressing partially following), No drainage, No erythema - Time Spent With Patient Time Spent with Patient: greater than 35 minutes Time Spent with Patient: Greater than 35 minutes spent on this patients care, greater than 50% of time spent counseling, educating, and coordinating care regarding the above mentioned plan. ICD10 Worksheet Patient Problems: Problems Problem Status Onset Pain Acute Panniculitis Acute Peripheral neuropathy Acute Cellulitis Acute DKA (diabetic ketoacidoses) Acute Sepsis Acute Skin ulcer of abdomen Acute
[2016-11-17] MEDS ORDERED: CLINDAMYCIN 900 MG/DEXTROSE 50 ML IV SCH (14:00)
--- NOTE | 2016-11-17 14:48 | GHP ---
[f rep st] HISTORY AND PHYSICAL DATE OF ADMISSION: 11/17/2016 CHIEF COMPLAINT: Left leg pain. HISTORY: The patient is a 76-year-old female who was just discharged from our hospital November 09 n she was treated for an abdominal wall cellulitis and panniculitis with sepsis. She was discharged with a wound VAC and IV vancomycin to [facility]. Since arriving to the [facility], her condition has worsened. She has developed worsening left leg and foot swelling. The left le g is so painful she can no longer walk. She also feels her abdominal wound is worsening, that the s kin is harder than it was before and it is more red. She has been having trouble sleeping. She had a fever to 103 with chills. PAST MEDICAL HISTORY: 1. Diastolic congestive heart failure. 2. COPD, oxygen 2 L at night. 3. Diabetes type 2. 4. Atrial fibrillation. 5. DVT x2 in the left leg. 6. Obstructive sleep apnea. 7. Coronary artery disease, status post stent. 8. Morbid obesity; BMI 44. 9. Gout. MEDICATIONS: Please see computer record for full detailed list. ALLERGIES: Iodine, penicillin, cephalexin, and clindamycin. SOCIAL HISTORY: She smoked in college. No alcohol. She lives with her ; more recently has been at [facility]. REVIEW OF SYSTEMS: Complete review of systems was obtained. Review of systems is negative regardin g constitutional, HEENT, GI, pulmonary, cardiovascular, , hematology, skin, musculoskeletal, endoc rine, psych except for positives and negatives as in HPI. FAMILY HISTORY: Reviewed and noncontributory to presenting complaint. PHYSICAL EXAMINATION: GENERAL: Well-developed, well-nourished female in no acute distress. VITAL SIGNS: Temperature is 38.1, pulse 127, blood pressure 128/65, saturating 86% on room air. EYES: Sh e has possible scleral icterus with extensive conjunctival injection and possible small hemorrhages. Pupils equal, round, reactive to light. ENT: Normal ears and nose. Hearing intact. Normal teeth . Oropharynx moist. NECK: Trachea midline. No thyromegaly. CHEST: Normal effort. LUNGS: Ana r to auscultation bilaterally. CARDIOVASCULAR: Irregularly irregular. No murmur. Left lower extr emity edema; none on the right. ABDOMEN: Soft. Some induration around the area of the wound VAC, but otherwise very soft abdomen. Wound VAC looks to be in a good place. No hepatosplenomegaly. SK IN: Left leg has an area of fluctuant induration over the left calf that is tender to palpation wit h some edema throughout the entire leg from the knee down involving the foot. MUSCULOSKELETAL: No cyanosis or clubbing. Strength 5/5 in upper and lower extremities. NEUROLOGIC: Cranial nerves int act. Normal sensation to light touch. PSYCH: Alert and oriented x3. Normal affect. Normal judgm ent. Normal memory. LABORATORY DATA: White count 13.14, hematocrit 31.1, platelets 564, sodium 146, potassium 3.7, chlo ride 104, bicarb 27, BUN 20, creatinine 0.9, glucose 75, INR is 3.21, lactate is 1.2. IMAGING: EKG reviewed by me. My personal interpretation is atrial fibrillation with mild tachycard ia. No ST or T-wave changes. Chest x-ray shows mild pulmonary edema with possible left lower lobe pneumonia. ASSESSMENT/PLAN: 1. Sepsis. She appears to have worsening sepsis despite being on IV vancomycin. I am concerned fo r a deeper infection in the calf of her left leg. We will check an MRI stat with contrast. I have consulted Dr. Jennifer Reddy. She reports a severe allergy to IV clindamycin, per her clinic records. I will add that to her allergy list. Instead, we will add IV meropenem. She does also have a poss ible left lower lobe pneumonia and the meropenem would cover for a hospital-acquired infection. 2. Abdominal wound with panniculitis, previous cellulitis, and wound VAC. I considered imaging of her abdomen as well; however, I have spoken with Dr. Jennifer Reddy who knows the patient from her last hospitalization and says her abdominal wound actually looks improved from previous. We will hold o ff on abdominal imaging at this time. General Surgery has been consulted. Her established surgeon is Dr. Seay. 3. Acute on chronic diastolic congestive heart failure. She does present hypoxemic with evidence o f pulmonary edema. Will give her a 1-time dose of IV Lasix. 4. Atrial fibrillation. She did have tachycardia on presentation which is probably due to her acut e infection. We will continue her verapamil and watch her on telemetry. If she continues to have t achycardic rates, she may need a transfer to PCU for more aggressive rate control management. Will continue her warfarin, although if she does need surgery on the left leg this would need to be emerg ently reversed with FFP. 5. Chronic obstructive pulmonary disease, on oxygen only at night. She is on 6 mg of prednisone pe r day which is reportedly for this COPD. It seems strange to me as her COPD does not seem advanced enough to require chronic steroids. Further historical clarification could be obtained. 6. Diabetes type 2. Continue Lantus with insulin sliding scale. 7. Coronary artery disease, status post previous stent. Nothing to suggest acute ischemia at this time. 8. Morbid obesity. BMI is 41. CODE STATUS: Full. ADMISSION STATUS: Will admit to inpatient as she is medically complex. Anticipate greater than 2 m idnights required. DVT PROPHYLAXIS: She is chronically on warfarin which makes her low risk. This will be continued. /[id number]/MODL
[2016-11-17] MEDS: MEROPENEM 1 GM in NS 100 ML IV SCH ×2 (15:51→21:40)
[2016-11-17] MEDS ORDERED: WARFARIN SODIUM 3 MG TAB PO SCH (16:00)
[2016-11-17] MEDS ORDERED: GADOBUTROL 10 ML VIAL IVP ONE ×2 (17:14→18:15)
[2016-11-17] MEDS: LANSOPRAZOLE SUSP 3 MG/ML UDSYR (Peds) PO SCH (19:25)
[2016-11-17] MEDS: INSULIN REGULAR HUMAN 100 UNIT/ML SC SCH ×2 (19:43→21:10)
[2016-11-17] MEDS: VANCOMYCIN HCL/NORMAL SALINE 250 ML IV SCH (20:35)
[2016-11-17] MEDS: ATORVASTATIN CALCIUM 40 MG TAB PO SCH (20:39)
[2016-11-17] MEDS: VERAPAMIL ER 180 MG TAB PO SCH (20:39)
[2016-11-17] MEDS: SALMETEROL IH SCH (20:40)
[2016-11-17] MEDS: FLUTICASONE IH SCH (20:40)
[2016-11-17] MEDS ORDERED: ALTEPLASE 2 MG VIAL IVP PRN (21:00)
[2016-11-17] MEDS ORDERED: NON-FORMULARY NEW DRUG (Fluticasone/Salmeterol [Advair Hfa 230-21 Mcg Inhaler] 1 PUFFS) IH SCH (21:00)
[2016-11-17] MEDS: INSULIN GLARGINE 100 UNITS/ML SYRINGE SC SCH (21:40)
[2016-11-18 00:14] LABS: COLOR YELLOW; LEUKOCYTE ESTERASE,URINE 2+ (NEGATIVE); NITRITE,URINE NEGATIVE (NEGATIVE)
[2016-11-18 00:43] LABS: MUCUS TRACE /lpf (NONE-1+); WBC,URINE 50-182 /hpf (0-3)
[2016-11-18] MEDS: HYDROmorphONE/DILAUDID 1 MG/ML SYR IVP PRN (05:41)
[2016-11-18] MEDS: MEROPENEM 1 GM in NS 100 ML IV SCH ×3 (05:41→22:07)
[2016-11-18 06:05] LABS: % IMMATURE GRANULYOCYTES 0.4 % (0.0-1.1); ABSOLUTE IMMATURE GRANULOCYTES 0.04 10^3/uL (0.00-0.10); ABSOLUTE NRBC COUNT 0.02 10^3/uL (0-0.01); ADD DIFF? NO; ADD MORPH? NO; ADD SCAN? NO; ATYPICAL LYMPHOCYTE FLAG 0 (0-99); FRAGMENT RBC FLAG 0 (0-99); HEMATOCRIT 23.5 % (38.0-47.0); HEMOGLOBIN 7.4 g/dL (12.6-16.3); LEFT SHIFT FLG 10 (0-99); LIPEMIA HEMOLYSIS FLAG 80 (0-99); MEAN CELL HEMOGLOBIN 29.4 pg (27.9-34.1); MEAN CELL HEMOGLOBIN CONCENTR. 31.5 g/dL (32.4-36.7); MEAN CELL VOLUME 93.3 fL (81.5-99.8); MEAN PLATELET VOLUME 9.5 fL (8.7-11.7); NRBC-AUTO% 0.2 % (0.0-0.2); PLATELET CLUMPS FLAG 0 (0-99); PLATELET COUNT 454 10^3/uL (150-400); RED BLOOD CELL COUNT 2.52 10^6/uL (4.18-5.33); RED CELL DISTRIBUTION WIDTH 17.3 % (11.5-15.2)
[2016-11-18 06:13] LABS: INR 4.02 (0.83-1.16); PROTIME(PATIENT) 39.9 SEC (12.0-15.0)
[2016-11-18 06:37] LABS: ALANINE AMINOTRANSFERASE 35 IU/L (9-52); ALBUMIN 2.2 g/dL (3.5-5.0); ALKALINE PHOSPHATASE 77 IU/L (38-126); ANION GAP 10 mEq/L (8-16); ASPARTATE AMINOTRANSFERASE 26 IU/L (14-46); BILIRUBIN,TOTAL 1.1 mg/dL (0.1-1.4); BILIRUBIN-CONJUGATED 0.4 mg/dL (0.0-0.5); BILIRUBIN-UNCONJUGATED 0.7 mg/dL (0.0-1.1); CALCIUM 6.6 mg/dL (8.5-10.4); CARBON DIOXIDE 27 mEq/l (22-31); CHLORIDE 105 mEq/L (97-110); GLOMERULAR FILTRATION RATE 54; GLUCOSE 117 mg/dL (70-100); POTASSIUM 3.2 mEq/L (3.5-5.2); SODIUM 142 mEq/L (134-144); TOTAL PROTEIN 4.7 g/dL (6.3-8.2)
[2016-11-18] MEDS: INSULIN REGULAR HUMAN 100 UNIT/ML SC SCH ×4 (07:49→21:13)
[2016-11-18] MEDS: predniSONE 5 MG TAB PO SCH (08:06)
[2016-11-18] MEDS: predniSONE 1 MG TAB PO SCH (08:06)
[2016-11-18] MEDS: metFORMIN HCL 500 MG TAB PO SCH (08:06)
[2016-11-18] MEDS: LANSOPRAZOLE SUSP 3 MG/ML UDSYR (Peds) PO SCH ×2 (08:07→18:14)
[2016-11-18] MEDS: SALMETEROL IH SCH (08:08)
[2016-11-18] MEDS: FLUTICASONE IH SCH (08:08)
[2016-11-18] MEDS: VERAPAMIL ER 180 MG TAB PO SCH ×2 (08:17→21:58)
[2016-11-18] MEDS: FUROSEMIDE 40 MG TAB PO SCH ×2 (08:17→13:23)
[2016-11-18] MEDS: INSULIN GLARGINE 100 UNITS/ML SYRINGE SC SCH ×2 (08:18→21:07)
[2016-11-18] MEDS ORDERED: PROTOCOL POTASSIUM 1 DOSE MISC PRN (08:47)
[2016-11-18] MEDS ORDERED: DEXTROSE IV SCH (09:00)
[2016-11-18] MEDS ORDERED: VANCOMYCIN IV SCH (09:00)
[2016-11-18] MEDS ORDERED: POTASSIUM CL 10 MEQ TAB PO ONE (09:14)
--- NOTE | 2016-11-18 10:15 | WOCRNPDOC ---
WOCRN Advanced Assessment Note - Skin Integrity Problem, Advanced Assess Bilateral Medial Buttock Dressing Type: Open to Air Exudate Amount: None Exudate Characteristic(s): None Integumentary Issue Intervention: Barrier Cream Applied (Calazime) Nelson Wound Tissue: Blanching, Erythema, Denuded Nelson Wound Swelling: None Wound Bed Color: Red Skin Integrity Problem Comment: Raw, denuded skin noted in gluteal cleft, extending onto medial buttocks, presently blanching erythema. Appearance is consistent with incontinence or moisture-associated dermatitis. There is some partial-thickness tissue loss on the L medial buttock. Order for Calazime skin protectant to be applied w/ nelson-care. In addition, due to patient's current immobility, fever, and IAD, she has been placed on an Accu-max pump, w/ orders to turn side to side q2 to off-load sacrum and coccyx and protect from pressure- related injury. Report given to wireless sales consultant October. Pannus Dressing Type: Black Vac Foam, Wound Vac Dressing Description: Intact Exudate Amount: None Exudate Characteristic(s): None Nelson Wound Tissue: Erythema, Indurated Nelson Wound Swelling: Moderate Skin Integrity Problem Comment: Consulted regarding wound vac to patient's pannus. Upon assessment, wound vac dressing has compressed black foam and is intact, w/ no exudate noted in the canister. Patient reports dressing was last changed on 11/15. There is both erythema and induration nelson-wound, though patient reports she has no pain to this site. Plan to evaluate w/ surgeon tomorrow when dressing will be changed at the bedside. Report given to wireless sales consultant October. Left Lower Leg Dressing Type: Open to Air Site Measurement - Head-to-Toe Length X Width X Depth (cm): [id number] Skin Integrity Problem Comment: Area of discrete marked erythema on patient's L anterior lower leg, w/ no wound noted. Eryrthema remains w/in these markings. No temperature difference noted between R and L lower extremities, and there is no significant sweling or edema in LLE. Wound care does not need to follow this site at this time.
[2016-11-18] MEDS ORDERED: predniSONE 20 MG TAB PO ONE (11:12)
--- NOTE | 2016-11-18 12:10 | GCON ---
[f rep st] CONSULTATION HISTORY OF PRESENT ILLNESS: This is a 76-year-old woman who is well known to the practice for chron ic abdominal wound. She presents with left leg pain following discharge approximately 1 week ago fo r abdominal wound issues. The patient presents with inability to put pressure on her left leg, left calf pain. MRI suggested a possible cellulitis, clinical signs of possible gout. She does have a history of gout and the patient currently also is now complaining newly of right wrist and hand pain . 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 These appear to be chronic based on the ultrasound images. Report is not yet available. She has a wound VAC for bilateral necrotic panniculitis open wounds last changed this . PAST MEDICAL HISTORY: Significant for diabetes, diverticulitis, atrial fibrillation, COPD, coronary artery disease, renal insufficiency, DVT, and diabetes. PAST SURGICAL HISTORY: None. MEDICATIONS: Prednisone, metformin, warfarin, verapamil, metolazone, lansoprazole, insulin, Lasix, Advair, colchicine, calcium, atorvastatin, and albuterol. ALLERGIES: Penicillin, cephalosporins, and most recently clindamycin with a rash. REVIEW OF SYSTEMS: Significant for her abdominal wounds, lethargy, diarrhea on colchicine, as well as her new left leg pain and right wrist pain. All other systems are reviewed and are currently neg ative. PHYSICAL EXAMINATION: VITAL SIGNS: Today, the patient has a temperature of 37.2, heart rate of 102 , blood pressure of 143/72, saturating 94% on 2 L of oxygen. GENERAL APPEARANCE: She is alert, nita ented, in no particular distress except when you touch her hand or either one of her ankles. HEENT: Her sclerae anicteric. Oropharynx is moist without lesions. She has irregularly irregular pulse. ABDOMEN: Soft, nontender. She has wound VAC in place with black foam bridging 2 gaps in an open a mariaa with mild induration in between the VAC areas. EXTREMITIES: She has poor peripheral pulses 1+/ 2+ femoral, dorsalis pedis bilateral, posterior tibial bilateral, and radial and ulnar bilateral. S he has good capillary refill. She has tenderness of the joints of her proximal phalange and wrist o n the right hand as well as the ankles bilaterally of bilateral lower extremities. She has 1 to 2+ pitting edema bilateral lower extremities. SKIN: No rashes, has normal turgor and tone. The patie nt has good affect. LABORATORY DATA: I reviewed her laboratory studies as well as her imaging studies. Laboratory stud ies significant for white blood cell count of 11.02, which is down from 13.14 yesterday. Hemoglobin and hematocrit are back to their baseline at 7.4 and 23.5. Platelet count is 454 and chemistries s how sodium 142, potassium 3.2, chloride 105, bicarb 27, BUN 10. Creatinine is 1.0. She has a gluco se of 117. Calcium is 6.6. Total bilirubin is 1.1. Transaminases are normal. Albumin is low at 2 .2. TEST DATA: MRI ultrasound and x-rays are reviewed. Possible left lower lobe pneumonia is noted on the x-ray. MRI consistent with cellulitis or inflammation of the skin. Also consistent with gout. PLAN: At this point would be to increase her colchicine, discuss with Dr. Perla Giordano. Wound VA C change will be done tomorrow. Hopefully will be able to coordinate this with wound care. All oth er systems addressed. No other surgical needs at this time. /[id number]/MODL
--- NOTE | 2016-11-18 12:17 | PCMIDPN ---
Assessment/Plan: # Mild immune compromise on chronic low dose Prednisone # Fever (none since admit), mild tachycardia (resolved), nl BP, leukocytosis ( better today) associated with severe L medial leg pain query cellulitis versus abscess - now suspicious for gout. Technically patient met sepsis criteria but looks well. Also could consider Line infection. CT LLE without abscess --1 more day empiric antibiotic and dc tomorrow if blood cx negative --Rx gout per hospitalist # Panniculitis: essentially resolved --dc vancomycin 11/19 # Allergies to abx/intolerances PCN -->severe itching Cephlexin -> severe itching CLindamycin > rash witnessed by me Medications Meropenem 1gm IV q8#1 Vancomycin, therapy for panniculitis day # 15 Coordination of care with Perla Giordano MD Subjective: still with LLE pain No appetite Currently no diarrhea, states colchicine will give her diarrhea Objective: Vital Signs Temp Pulse Resp BP Pulse Ox 36.9 C 90 14 113/58 L 98 11/18/16 11:27 11/18/16 11:27 11/18/16 11:27 11/18/16 11:27 11/18/16 11:27 Laboratory Results 11/18/16 05:40 11/18/16 05:40 11/17/16 11/18/16 11/19/16 05:59 05:59 05:59 Intake Total 1350 200 Output Total 1390 250 Balance -40 -50 General Appearance: alert, no apparent distress, obese, pallor EENT: pale conjunctiva, No thrush Respiratory: lungs clear Neck: supple Cardiac/Chest: tachycardia Extremities: calf tenderness Left lower extremity, sofiya erythema L medial ankle Abdomen: non-tender, soft, Pannus with significant resolved erythema compared to my last exam, wound VAC in place, still some induration in the mid abdominal region Pelvic Exam: No bond Skin: No rash, No embolic lesions Neuro/Psych: alert, normal mood/affect, oriented x 3 LUE PICC No drainage, No erythema ICD10 Worksheet Patient Problems: Problems Problem Status Onset Pain Acute Panniculitis Acute Peripheral neuropathy Acute Cellulitis Acute DKA (diabetic ketoacidoses) Acute Sepsis Acute Skin ulcer of abdomen Acute
--- NOTE | 2016-11-18 13:02 | HOSPPROG ---
Hospitalist Progress Note Assessment/Plan: * LLE pain and swelling - suspect gout flare + superficial thrombophlebitis * Acute gout -add colchicine -high dose prednisone x 1 * Sepsis - suspect inflammatory response to gout > infection -empiric IV meropenem -d/w Dr. Reddy - DC soon if cultures negative * Abd wall cellulitis/panniculitis with wound vac -improving - d/w Dr. 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 -continue anticoagulation * Morbid obesity BMI 41 Subjective: Ongoing leg pain, hurts all over Objective: Vital Signs Temp Pulse Resp BP Pulse Ox 36.9 C 90 14 113/58 L 98 11/18/16 11:27 11/18/16 11:27 11/18/16 11:27 11/18/16 11:27 11/18/16 11:27 Laboratory Results 11/18/16 05:40 11/18/16 05:40 11/17/16 11/18/16 11/19/16 05:59 05:59 05:59 Intake Total 1350 200 Output Total 1390 250 Balance -40 -50 PT 39.9 SEC (12.0-15.0) H 11/18/16 05:40 INR 4.02 (0.83-1.16) H 11/18/16 05:40 LLE US - chronic appearing DVT, superficial thrombophlebitis - Physical Exam Constitutional: no apparent distress, appears nourished, not in pain Cardiovascular: regular rate and rhythym, no murmur, rub, or gallop Respiratory: no respiratory distress, no rales or rhonchi, clear to auscultation Gastrointestinal: normoactive bowel sounds, soft, non-tender abdomen, no palpable masses Skin: no rashes or abrasions, no fluctuance, no induration Neurologic: AAOx3, sensation intact bilaterally Psychiatric: interacting appropriately, not anxious, not encephalopathic, thought process linear ICD10 Worksheet Patient Problems: Problems Problem Status Onset Pain Acute Panniculitis Acute Peripheral neuropathy Acute Cellulitis Acute DKA (diabetic ketoacidoses) Acute Sepsis Acute Skin ulcer of abdomen Acute
[2016-11-18] MEDS: COLCHICINE 0.6 MG CAP/TAB PO SCH ×2 (13:24→21:07)
[2016-11-18 13:39] LABS: HEMATOCRIT 25.5 % (38.0-47.0); HEMOGLOBIN 7.7 g/dL (12.6-16.3)
[2016-11-18 19:47] LABS: POTASSIUM 4.1 mEq/L (3.5-5.2)
[2016-11-18] MEDS: VANCOMYCIN HCL/NORMAL SALINE 250 ML IV SCH (21:00)
[2016-11-18] MEDS: ATORVASTATIN CALCIUM 40 MG TAB PO SCH (21:07)
[2016-11-19] MEDS: MEROPENEM 1 GM in NS 100 ML IV SCH ×3 (05:20→22:44)
[2016-11-19 05:33] LABS: % IMMATURE GRANULYOCYTES 0.6 % (0.0-1.1); ABSOLUTE IMMATURE GRANULOCYTES 0.07 10^3/uL (0.00-0.10); ADD DIFF? NO; ADD MORPH? NO; ADD SCAN? NO; ATYPICAL LYMPHOCYTE FLAG 0 (0-99); FRAGMENT RBC FLAG 0 (0-99); HEMATOCRIT 23.9 % (38.0-47.0); HEMOGLOBIN 7.4 g/dL (12.6-16.3); LEFT SHIFT FLG 10 (0-99); LIPEMIA HEMOLYSIS FLAG 80 (0-99); MEAN CELL HEMOGLOBIN 29.1 pg (27.9-34.1); MEAN CELL VOLUME 94.1 fL (81.5-99.8); MEAN PLATELET VOLUME 9.5 fL (8.7-11.7); PLATELET CLUMPS FLAG 0 (0-99); PLATELET COUNT 451 10^3/uL (150-400); RED BLOOD CELL COUNT 2.54 10^6/uL (4.18-5.33); RED CELL DISTRIBUTION WIDTH 17.2 % (11.5-15.2)
[2016-11-19 05:43] LABS: INR 3.17 (0.83-1.16)
[2016-11-19 05:50] LABS: ANION GAP 10 mEq/L (8-16); CALCIUM 6.7 mg/dL (8.5-10.4); CARBON DIOXIDE 24 mEq/l (22-31); CHLORIDE 104 mEq/L (97-110); CREATININE 1.1 mg/dL (0.6-1.0); GLOMERULAR FILTRATION RATE 48; GLUCOSE 215 mg/dL (70-100); SODIUM 138 mEq/L (134-144)
[2016-11-19] MEDS: predniSONE 1 MG TAB PO SCH (09:16)
[2016-11-19] MEDS: FUROSEMIDE 40 MG TAB PO SCH ×2 (09:17→12:55)
[2016-11-19] MEDS: metFORMIN HCL 500 MG TAB PO SCH (09:18)
[2016-11-19] MEDS: predniSONE 5 MG TAB PO SCH (09:18)
[2016-11-19] MEDS: COLCHICINE 0.6 MG CAP/TAB PO SCH ×2 (09:19→20:05)
[2016-11-19] MEDS: VERAPAMIL ER 180 MG TAB PO SCH ×2 (09:23→20:05)
[2016-11-19] MEDS: INSULIN REGULAR HUMAN 100 UNIT/ML SC SCH ×4 (09:24→20:06)
[2016-11-19] MEDS: INSULIN GLARGINE 100 UNITS/ML SYRINGE SC SCH ×2 (09:26→20:06)
[2016-11-19] MEDS: LANSOPRAZOLE SUSP 3 MG/ML UDSYR (Peds) PO SCH ×2 (09:36→17:45)
[2016-11-19] MEDS: HYDROmorphONE/DILAUDID 1 MG/ML SYR IVP PRN ×3 (09:42→18:40)
[2016-11-19] MEDS ORDERED: predniSONE 20 MG TAB PO ONE (10:12)
--- NOTE | 2016-11-19 11:26 | PCMIDPN ---
Assessment/Plan: Assessment: Fever and leukocytosis which are now resolved coupled with left leg pain now felt to likely be crystal arthropathy. On meropenem and vancomycin empirically. Fevers have not returned. Cultures are negative. Will discontinue antibiotics today as per Dr. Reddy note yesterday. Plan: 1. Discontinue both vancomycin and meropenem. 2. Will sign off at this point. Please call for any further infection questions. Thank you. Subjective: Patient is resting comfortably. No new complaint. No new subjective fevers or chills. No rash. Objective: Vancomycin #16. Meropenem # 2. Vital Signs Temp Pulse Resp BP Pulse Ox 36.6 C 79 17 139/63 H 94 11/19/16 08:00 11/19/16 08:00 11/19/16 08:00 11/19/16 09:23 11/19/16 08:00 Laboratory Results 11/19/16 05:00 11/19/16 05:00 11/18/16 11/19/16 11/20/16 05:59 05:59 05:59 Intake Total 1350 880 Output Total 1390 550 Balance -40 330 - Physical Exam General Appearance: WD/WN, alert, no apparent distress, obese, non-toxic Respiratory: lungs clear, normal breath sounds, No respiratory distress Cardiac/Chest: regular rate, rhythm, No tachycardia Abdomen: soft, No non-tender, No mass Skin: normal color, warm/dry, No rash Neuro/Psych: alert, normal mood/affect, oriented x 3 ICD10 Worksheet Patient Problems: Problems Problem Status Onset Pain Acute Panniculitis Acute Peripheral neuropathy Acute Cellulitis Acute DKA (diabetic ketoacidoses) Acute Sepsis Acute Skin ulcer of abdomen Acute
[2016-11-19] MEDS: SALMETEROL IH SCH ×3 (12:59→13:13)
[2016-11-19] MEDS: FLUTICASONE IH SCH ×3 (12:59→13:13)
[2016-11-19] MEDS ORDERED: ALBUTEROL INH PREPACK MDI TAKEHOME PRN (13:36)
--- NOTE | 2016-11-19 13:43 | SOAPPROG ---
SOAP Progress Note Assessment/Plan: Assessment: Patient readmitted on 11/17/16 for complaints of leg/foot pain and inability to walk. Patient also now unable to straighten or use first 3 digits of right hand. Patient currently being treated for gout of bilateral feet and right hand. Prior known abdominal wounds followed by our practice over the last several months. Patient with wound vac in place. Recent panniculitis improving. Antibiotics per ID- appears plans for possible discontinuation today. Patient currently resting comfortably in bed. Remains extremely weak and unable to mobilize. afeb, VSS, A&O x 3, Abdominal pain improved. Wound vac in place. Erythema resolved. Minimal induration in mid abdomen between wounds persists. No fluctuance. Two smaller superficial wounds with eschar, no active drainage. Plan: change wound vac today- just discussed with patients RN that wound nurses are currently there. Antibiotics per ID. Gout management per hospitalist. Will see patient again in tomorrow. Dispo- patient with plans to return to a SNF before going home. Plan: 11/19/16 13:43 11/19/16 13:43 Objective: Vital Signs Temp Pulse Resp BP Pulse Ox 36.6 C 85 16 118/74 97 11/19/16 12:00 11/19/16 12:00 11/19/16 12:00 11/19/16 12:00 11/19/16 12:00 Microbiology 11/18/16 00:49 Urine Culture - Final Urine,Clean Catch Georgina Albicans Laboratory Results 11/19/16 05:00 11/19/16 05:00 11/18/16 11/19/16 11/20/16 05:59 05:59 05:59 Intake Total 1350 880 Output Total 1390 550 Balance -40 330 PT 33.0 SEC (12.0-15.0) H 11/19/16 05:00 INR 3.17 (0.83-1.16) H 11/19/16 05:00 ICD10 Worksheet Patient Problems: Problems Problem Status Onset Pain Acute Panniculitis Acute Peripheral neuropathy Acute Cellulitis Acute DKA (diabetic ketoacidoses) Acute Sepsis Acute Skin ulcer of abdomen Acute
--- NOTE | 2016-11-19 13:53 | HOSPPROG ---
Hospitalist Progress Note Assessment/Plan: * Acute gout - suspect LLE and RUE affected -colchicine held at [facility] as "wasn't available" -restart colchicine -high dose prednisone again today -resume allopurinol when acute gout resolved * LLE superficial thrombophlebitis * Sepsis - suspect inflammatory response to gout > infection -empiric IV meropenem -DC soon - cultures negative * Abd wall cellulitis/panniculitis with wound vac -IV Vanco through 11/19 - likely DC after tonight's dose * PICC line associated DVT (despite elevated INR) -remove PICC - abx likely complete after today * Steroid dependent asthma/COPD -prednisone 6mg daily - consider wean off -advair * Acute on chronic diastolic CHF -s/p IV lasix * Afib -rate controlled on verapamil -chronic warfarin * CAD/stent * DM II -Lantus + metformin * 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 -continue anticoagulation -patient very hypercoagulable (multiple clots - as above) * Morbid obesity BMI 41 Subjective: Still with severe pain right hand, mostly 2nd finger radiating into hand, right arm swollen Objective: Vital Signs Temp Pulse Resp BP Pulse Ox 36.6 C 85 16 118/74 97 11/19/16 12:00 11/19/16 12:00 11/19/16 12:00 11/19/16 12:00 11/19/16 12:00 Microbiology 11/18/16 00:49 Urine Culture - Final Urine,Clean Catch Georgina Albicans Laboratory Results 11/19/16 05:00 11/19/16 05:00 11/18/16 11/19/16 11/20/16 05:59 05:59 05:59 Intake Total 1350 880 Output Total 1390 550 Balance -40 330 PT 33.0 SEC (12.0-15.0) H 11/19/16 05:00 INR 3.17 (0.83-1.16) H 11/19/16 05:00 Still requiring IV dilaudid for pain control US right arm - PICC line associated DVT US results were discussed with Dr. Ledezma - Physical Exam Constitutional: no apparent distress, appears nourished, not in pain Cardiovascular: regular rate and rhythym, no murmur, rub, or gallop Respiratory: no respiratory distress, no rales or rhonchi, clear to auscultation Gastrointestinal: normoactive bowel sounds, soft, non-tender abdomen, no palpable masses Skin: no rashes or abrasions, no fluctuance, no induration Musculoskeletal: asymmetric calves, joint effusion, joint tenderness, pain with ROM, muscular tenderness, No normal joint ROM, No no joint effusions Neurologic: AAOx3, sensation intact bilaterally Psychiatric: interacting appropriately, not anxious, not encephalopathic, thought process linear ICD10 Worksheet Patient Problems: Problems Problem Status Onset Pain Acute Panniculitis Acute Peripheral neuropathy Acute Cellulitis Acute DKA (diabetic ketoacidoses) Acute Sepsis Acute Skin ulcer of abdomen Acute
[2016-11-19] MEDS: ATORVASTATIN CALCIUM 40 MG TAB PO SCH (20:05)
[2016-11-19] MEDS: VANCOMYCIN HCL/NORMAL SALINE 250 ML IV SCH (20:06)
--- NOTE | 2016-11-19 20:15 | WOCRNPDOC ---
WOCRN Advanced Assessment Note - Skin Integrity Problem, Advanced Assess Bilateral Medial Buttock Dressing Type: Open to Air Exudate Amount: None Integumentary Issue Intervention: Visualized Under Dressing (visualized through barrier cream) Addis Wound Tissue: Excoriated (slightly) Wound Bed Color: [place] Wound Bed Constitution: Smooth Tissue Site Odor: None Skin Integrity Problem Comment: Appearance is consistent with healing or stable incontinence associated dermatitis. Dermis is intact, with small (approx 0.3 cm madhavi) area of superficial epidermal peeling visible at L medial buttock. Patient demonstrates ability to turn in bed with assistance, and is on a q2h turn and reposition schedule. Pannus Dressing Type: Black Vac Foam (1 piece @ lateral; 1 piece @ L of midline; 2 pieces bridging), Wound Vac Dressing Description: Intact Exudate Amount: Scant Exudate Color: Yellow, Red Exudate Characteristic(s): Sanguinopurulent (at R lateral), Serosanguinous (@ R of midline) Integumentary Issue Intervention: Dressing Applied (Placed hydrocolloid dressings to two sites presenting with dry, black scabbing (1.3 x 3 x 0; 0.7 x 0.5 x 0) adjacent to primary wounds.), Dressing Changed Addis Wound Tissue: Erythema, Hot, Indurated Addis Wound Swelling: Moderate Wound Bed Color: Red, Yellow (<5% at R lateral) Wound Edges: Well Defined, Scarred Site Odor: Slight, Musky Site Measurement - Head-to-Toe Length X Width X Depth (cm): R of midline=2.3 x 6.5 x 0.2, deeper opening @ 12 o'clock =1.8 x 0.5 x 0.5, with tunnel @ 3 o' clock =0.5 cm. R lateral = 1 x 3.5 x 1; tunnel @ 3 o'clock =2 cm Skin Integrity Problem Comment: Primarily clean, red granulation tissue at bases of both wounds, however small tunnels, noted above, were detected at 3 o' clock positions in the bases of both. Drops of possibly seropurulent drainage was observed at lateral site during placement of black foam sponge dressing. Patient reported unusually intense pain when negative pressure was resumed following dressing change, then stated that discomfort diminished to "tolerable " after a minute of adjustment to active tx. Reported to LATISHA Carpio, with request for pain management. Findings were reported to Drs. Lancaster and Pasquale. Received verbal okay from Dr. Giordano to obtain wound culture in the course of next scheduled dressing change on Saturday (11/21). Will also coordinate with Imaging for ultrasound if unable to obtain satisfactory results from today's attempt. Discussed with LATISHA Carpio.
[2016-11-20] MEDS: HYDROmorphONE/DILAUDID 1 MG/ML SYR IVP PRN (01:22)
[2016-11-20] MEDS: MEROPENEM 1 GM in NS 100 ML IV SCH ×2 (05:08→14:14)
[2016-11-20 05:28] LABS: % IMMATURE GRANULYOCYTES 0.7 % (0.0-1.1); ABSOLUTE IMMATURE GRANULOCYTES 0.06 10^3/uL (0.00-0.10); ADD DIFF? NO; ADD MORPH? NO; ADD SCAN? NO; ATYPICAL LYMPHOCYTE FLAG 0 (0-99); FRAGMENT RBC FLAG 0 (0-99); HEMATOCRIT 25.5 % (38.0-47.0); HEMOGLOBIN 7.7 g/dL (12.6-16.3); LEFT SHIFT FLG 0 (0-99); LIPEMIA HEMOLYSIS FLAG 80 (0-99); MEAN CELL HEMOGLOBIN 28.3 pg (27.9-34.1); MEAN CELL HEMOGLOBIN CONCENTR. 30.2 g/dL (32.4-36.7); MEAN CELL VOLUME 93.8 fL (81.5-99.8); MEAN PLATELET VOLUME 9.6 fL (8.7-11.7); PLATELET CLUMPS FLAG 10 (0-99); PLATELET COUNT 504 10^3/uL (150-400); RED BLOOD CELL COUNT 2.72 10^6/uL (4.18-5.33); RED CELL DISTRIBUTION WIDTH 17.3 % (11.5-15.2)
[2016-11-20 05:49] LABS: INR 3.72 (0.83-1.16); PROTIME(PATIENT) 37.5 SEC (12.0-15.0)
[2016-11-20 05:51] LABS: ANION GAP 11 mEq/L (8-16); CARBON DIOXIDE 26 mEq/l (22-31); CHLORIDE 104 mEq/L (97-110); CREATININE 1.1 mg/dL (0.6-1.0); GLOMERULAR FILTRATION RATE 48; GLUCOSE 318 mg/dL (70-100); POTASSIUM 4.4 mEq/L (3.5-5.2); SODIUM 141 mEq/L (134-144)
[2016-11-20] MEDS: FUROSEMIDE 40 MG TAB PO SCH ×2 (08:27→12:29)
[2016-11-20] MEDS: metFORMIN HCL 500 MG TAB PO SCH (08:28)
[2016-11-20] MEDS: predniSONE 5 MG TAB PO SCH (08:28)
[2016-11-20] MEDS: VERAPAMIL ER 180 MG TAB PO SCH ×2 (08:28→21:47)
[2016-11-20] MEDS: predniSONE 1 MG TAB PO SCH (08:28)
[2016-11-20] MEDS: COLCHICINE 0.6 MG CAP/TAB PO SCH ×2 (08:28→21:45)
[2016-11-20] MEDS: INSULIN GLARGINE 100 UNITS/ML SYRINGE SC SCH ×2 (08:29→21:48)
[2016-11-20] MEDS: INSULIN REGULAR HUMAN 100 UNIT/ML SC SCH ×4 (10:38→23:24)
[2016-11-20] MEDS: LANSOPRAZOLE SUSP 3 MG/ML UDSYR (Peds) PO SCH ×2 (10:50→18:38)
[2016-11-20] MEDS: FLUTICASONE IH SCH ×3 (11:13→21:46)
[2016-11-20] MEDS: SALMETEROL IH SCH ×3 (11:13→21:46)
[2016-11-20] MEDS: ALBUTEROL IH IH PRN ×2 (12:28→21:47)
[2016-11-20] MEDS: oxyCODONE IR 5 MG TAB PO PRN (14:13)
[2016-11-20 19:30] LABS: POTASSIUM 3.9 mEq/L (3.5-5.2)
--- NOTE | 2016-11-20 20:26 | HOSPPROG ---
Hospitalist Progress Note Assessment/Plan: * Acute gout - suspect LLE and RUE affected -restart colchicine -s/p high dose prednisone -resume allopurinol when acute gout resolved * LLE superficial thrombophlebitis * Sepsis - suspect inflammatory response to gout > infection -empiric IV meropenem -DC'd - cultures negative * Abd wall cellulitis/panniculitis with wound vac -IV Vanco through 11/19 - complete -reported pus in wound by wound RN -ID to eval during wound vac change tomorrow * PICC line associated DVT (despite elevated INR) -remove PICC - abx complete * Steroid dependent asthma/COPD -prednisone 6mg daily - consider wean off -advair * Acute on chronic diastolic CHF -s/p IV lasix * Afib -rate controlled on verapamil -chronic warfarin * CAD/stent * DM II -Lantus + metformin * 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 Reddy - ID will eval wound tomorrow during wound vac change ABD US - no fluid collection - Physical Exam Constitutional: no apparent distress, appears nourished, not in pain Cardiovascular: regular rate and rhythym, no murmur, rub, or gallop Respiratory: no respiratory distress, no rales or rhonchi, clear to auscultation Gastrointestinal: normoactive bowel sounds, soft, non-tender abdomen, no palpable masses Skin: erythema, induration, No fluctuance, No rash Musculoskeletal: asymmetric calves, joint effusion, joint tenderness, pain with ROM, other (improved joint inflammation) Neurologic: AAOx3, sensation intact bilaterally Psychiatric: interacting appropriately, not anxious, not encephalopathic, thought process linear ICD10 Worksheet Patient Problems: Problems Problem Status Onset Pain Acute Panniculitis Acute Peripheral neuropathy Acute Cellulitis Acute DKA (diabetic ketoacidoses) Acute Sepsis Acute Skin ulcer of abdomen Acute
[2016-11-20] MEDS ORDERED: POTASSIUM CL 10 MEQ TAB PO ONE (20:43)
[2016-11-20] MEDS: ATORVASTATIN CALCIUM 40 MG TAB PO SCH (21:44)
[2016-11-21 04:58] LABS: % IMMATURE GRANULYOCYTES 0.5 % (0.0-1.1); ABSOLUTE IMMATURE GRANULOCYTES 0.03 10^3/uL (0.00-0.10); ADD DIFF? NO; ADD MORPH? NO; ADD SCAN? NO; ATYPICAL LYMPHOCYTE FLAG 10 (0-99); FRAGMENT RBC FLAG 0 (0-99); HEMATOCRIT 25.6 % (38.0-47.0); HEMOGLOBIN 7.7 g/dL (12.6-16.3); LEFT SHIFT FLG 0 (0-99); LIPEMIA HEMOLYSIS FLAG 80 (0-99); MEAN CELL HEMOGLOBIN 28.4 pg (27.9-34.1); MEAN CELL HEMOGLOBIN CONCENTR. 30.1 g/dL (32.4-36.7); MEAN CELL VOLUME 94.5 fL (81.5-99.8); MEAN PLATELET VOLUME 9.6 fL (8.7-11.7); PLATELET CLUMPS FLAG 10 (0-99); PLATELET COUNT 545 10^3/uL (150-400); RED BLOOD CELL COUNT 2.71 10^6/uL (4.18-5.33); RED CELL DISTRIBUTION WIDTH 17.1 % (11.5-15.2)
[2016-11-21 05:21] LABS: ANION GAP 10 mEq/L (8-16); CALCIUM 7.2 mg/dL (8.5-10.4); CARBON DIOXIDE 27 mEq/l (22-31); CHLORIDE 107 mEq/L (97-110); CREATININE 1.1 mg/dL (0.6-1.0); GLOMERULAR FILTRATION RATE 48; GLUCOSE 139 mg/dL (70-100); SODIUM 144 mEq/L (134-144)
[2016-11-21 05:25] LABS: INR 3.69 (0.83-1.16); PROTIME(PATIENT) 37.2 SEC (12.0-15.0)
[2016-11-21] MEDS: INSULIN REGULAR HUMAN 100 UNIT/ML SC SCH ×4 (09:30→21:37)
[2016-11-21] MEDS: LANSOPRAZOLE SUSP 3 MG/ML UDSYR (Peds) PO SCH ×2 (09:30→18:11)
[2016-11-21] MEDS: predniSONE 1 MG TAB PO SCH (09:31)
[2016-11-21] MEDS: COLCHICINE 0.6 MG CAP/TAB PO SCH ×2 (09:31→21:14)
[2016-11-21] MEDS: INSULIN GLARGINE 100 UNITS/ML SYRINGE SC SCH ×2 (09:31→21:36)
[2016-11-21] MEDS: SALMETEROL IH SCH ×2 (09:32→21:17)
[2016-11-21] MEDS: FUROSEMIDE 40 MG TAB PO SCH ×2 (09:32→13:23)
[2016-11-21] MEDS: FLUTICASONE IH SCH ×2 (09:32→21:17)
[2016-11-21] MEDS: metFORMIN HCL 500 MG TAB PO SCH (09:32)
[2016-11-21] MEDS: predniSONE 5 MG TAB PO SCH (09:32)
[2016-11-21] MEDS: ALBUTEROL IH IH PRN ×2 (09:33→21:15)
[2016-11-21] MEDS: VERAPAMIL ER 180 MG TAB PO SCH ×2 (09:43→21:10)
[2016-11-21] MEDS: oxyCODONE IR 5 MG TAB PO PRN ×3 (09:44→23:33)
--- NOTE | 2016-11-21 10:37 | PCMIDPN ---
Assessment/Plan: # Mild immune compromise on chronic low dose Prednisone # Fever at admit due to gout L ankle, 11/17 blood cx negative --dc PICC line when discharged from hospital # Panniculitis, resolved, no residual erythema. soft tissue midline still a bit "firm." Significant improvement in chronic wound on pannus - appear significantly smaller than my last exam, only challenge remaining is wound on R tracking 7 cm at 3 o'clock but evidence of surrounding infection. Patient examined with systems manager --continue off antibiotics. S/p 2+ weeks IV vancomycin to cover staph/strep in setting of multiple antibiotic allergies/intolerances (no h/o MRSA) # Allergies to abx/intolerances PCN -->severe itching Cephlexin -> severe itching CLindamycin > rash witnessed by me Medications off antibiotics 1 days Subjective: L ankle feeling better Objective: Vital Signs Temp Pulse Resp BP Pulse Ox 36.8 C 91 15 144/83 H 98 11/21/16 08:00 11/21/16 08:00 11/21/16 08:00 11/21/16 09:43 11/21/16 08:00 Laboratory Results 11/21/16 04:25 11/21/16 04:25 11/20/16 11/21/16 11/22/16 05:59 05:59 05:59 Intake Total 935 750 Output Total 1100 350 Balance -165 400 - Physical Exam General Appearance: alert, no apparent distress EENT: pale conjunctiva Respiratory: No accessory muscle use Extremities: other (L ankle rednes and swelling resolved), No pedal edema Abdomen: non-tender, soft, other (large pannus with 2 primary wound, R tracts 7 cm - cloudy fluid in track but no correpsonding erythema) ICD10 Worksheet Patient Problems: Problems Problem Status Onset Pain Acute Panniculitis Acute Peripheral neuropathy Acute Cellulitis Acute DKA (diabetic ketoacidoses) Acute Sepsis Acute Skin ulcer of abdomen Acute
--- NOTE | 2016-11-21 12:38 | SOAPPROG ---
SOAP Progress Note Assessment/Plan: Assessment: Patient resting in bed. Feeling better and able to move fingers better. afeb, VSS, A&O x 3, Abdominal wounds improving. Wound vac in place. Erythema resolved. Minimal induration in mid abdomen between wounds persists. No fluctuance. Two smaller superficial wounds with eschar, no active drainage. Plan : wound RN following wound vac changes on M,W,F. Continue wound vac once patient goes to SNF. Patient now off antibiotics. Gout management per hospitalist. Dispo- patient with plans to return to a SNF before going home- we will followup with patient in the office after discharge from hospital. Please call with questions. . Plan: 11/19/16 13:43 11/19/16 13:43 11/21/16 12:29 Objective: Vital Signs Temp Pulse Resp BP Pulse Ox 36.8 C 91 15 144/83 H 98 11/21/16 08:00 11/21/16 08:00 11/21/16 08:00 11/21/16 09:43 11/21/16 08:00 Laboratory Results 11/21/16 04:25 11/21/16 04:25 11/20/16 11/21/16 11/22/16 05:59 05:59 05:59 Intake Total 935 750 Output Total 1100 350 Balance -165 400 PT 37.2 SEC (12.0-15.0) H 11/21/16 04:25 INR 3.69 (0.83-1.16) H 11/21/16 04:25 ICD10 Worksheet Patient Problems: Problems Problem Status Onset Pain Acute Panniculitis Acute Peripheral neuropathy Acute Cellulitis Acute DKA (diabetic ketoacidoses) Acute Sepsis Acute Skin ulcer of abdomen Acute
--- NOTE | 2016-11-21 16:00 | HOSPPROG ---
Hospitalist Progress Note Assessment/Plan: * Acute gout - suspect LLE and RUE affected -restart colchicine -s/p high dose prednisone -resume allopurinol when acute gout resolved * LLE superficial thrombophlebitis * Sepsis - suspect inflammatory response to gout > infection -empiric IV meropenem -DC'd - cultures negative * Abd wall cellulitis/panniculitis with wound vac -IV Vanco through 11/19 - complete -reported pus in wound by wound RN -looked good on wound vac change * PICC line associated DVT (despite elevated INR) -remove PICC - abx complete picc out * Steroid dependent asthma/COPD -prednisone 6mg daily - consider wean off -advair * Acute on chronic diastolic CHF -s/p IV lasix * Afib -rate controlled on verapamil -chronic warfarin * CAD/stent * DM II -Lantus + metformin * 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 case d/w dr do. per ID, no cellulitis on wound vac change Objective: Vital Signs Temp Pulse Resp BP Pulse Ox 36.9 C 78 15 124/79 H 88 L 11/21/16 15:52 11/21/16 15:52 11/21/16 15:52 11/21/16 15:52 11/21/16 15:52 Laboratory Results 11/21/16 04:25 11/21/16 04:25 11/20/16 11/21/16 11/22/16 05:59 05:59 05:59 Intake Total 622 049 3351 Output Total 1100 350 Balance -415 598 8797 PT 37.2 SEC (12.0-15.0) H 11/21/16 04:25 INR 3.69 (0.83-1.16) H 11/21/16 04:25 - Physical Exam Constitutional: no apparent distress, appears nourished Eyes: PERRL, anicteric sclera Ears, Nose, Mouth, Throat: moist mucous membranes, hearing normal Cardiovascular: regular rate and rhythym, no murmur, rub, or gallop Respiratory: no respiratory distress, no rales or rhonchi Gastrointestinal: normoactive bowel sounds, soft, non-tender abdomen Genitourinary: no bladder fullness, No bond in urethra Skin: warm, normal color Musculoskeletal: other (fingers on R hand tender, not warm or red) Neurologic: AAOx3, sensation intact bilaterally Psychiatric: interacting appropriately, not anxious ICD10 Worksheet Patient Problems: Problems Problem Status Onset Pain Acute Panniculitis Acute Peripheral neuropathy Acute Cellulitis Acute DKA (diabetic ketoacidoses) Acute Sepsis Acute Skin ulcer of abdomen Acute
--- NOTE | 2016-11-21 17:25 | WOCRNPDOC ---
WOCRN Advanced Assessment Note - Skin Integrity Problem, Advanced Assess Bilateral Medial Buttock Dressing Type: Open to Air Exudate Characteristic(s): None Integumentary Issue Intervention: Barrier Cream Applied Wound Bed Constitution: Healed Skin Integrity Problem Comment: Clean, pink, intact. Pannus Dressing Type: Black Vac Foam (one piece removed from each wound), Wound Vac Dressing Description: Intact Exudate Amount: Scant Exudate Color: Yellow Exudate Characteristic(s): Seropurulent (vs), Serous Integumentary Issue Intervention: Dressing Applied (one piece of white foam bilaterally (=2 total white foam); one piece of black foam bilaterally (=2 total black foam)) Addis Wound Tissue: Intact, Scarred Addis Wound Swelling: None Wound Bed Color: Red, Yellow Wound Bed Constitution: Granulation Tissue Wound Edges: Epithelizing, Irregular Site Odor: None Site Odor Comment: Patient commented on absence of foul odor, which had "been so strong." Skin Integrity Problem Comment: Arranged for patient to receive premedication for pain management prior to dressing removal. Dr. Reddy in to see patient during dressing change; measured medial tunneling, previously noted at 3 o' clock on right pannus, from which yellow seropurulent drainage seeped in small amounts. Dr. Reddy was able to probe to a depth of 7 cm, which she agreed we could fill to the extent possible with white foam. She did not feel that a wound culture is warranted at this time. Placed approx 3.5 cm of white foam into this tunnel; <5% loose slough in wound at right pannus was readily cleaned down to granulation tissue with NS and gauze. Another single piece of white foam was placed into the shallow tunnel on the left pannus wound. Bilateral wounds were picture-framed and mid-abdomen was protectively draped for placement of bridge foam; One piece of black foam was placed into main opening of each wound, then secured to bridge to bilateral sites. VAC tx was resumed at standard settings of -125 mmHg continuous pressure. Patient reported feeling "much more relaxed" during care and resumption of active negative pressure.
[2016-11-21 20:14] LABS: POTASSIUM 3.9 mEq/L (3.5-5.2)
[2016-11-21] MEDS: PANTOPRAZOLE SODIUM 40 MG TAB PO SCH (21:13)
[2016-11-21] MEDS: ATORVASTATIN CALCIUM 40 MG TAB PO SCH (21:13)
[2016-11-21] MEDS ORDERED: POTASSIUM CL 10 MEQ TAB PO ONE (23:18)
[2016-11-22 05:30] LABS: POTASSIUM 4.1 mEq/L (3.5-5.2)
[2016-11-22 05:34] LABS: INR 3.13 (0.83-1.16); PROTIME(PATIENT) 32.6 SEC (12.0-15.0)
[2016-11-22] MEDS: INSULIN REGULAR HUMAN 100 UNIT/ML SC SCH ×4 (07:43→22:42)
[2016-11-22] MEDS: COLCHICINE 0.6 MG CAP/TAB PO SCH (08:28)
[2016-11-22] MEDS: PANTOPRAZOLE SODIUM 40 MG TAB PO SCH ×2 (08:28→21:05)
[2016-11-22] MEDS: predniSONE 5 MG TAB PO SCH (08:29)
[2016-11-22] MEDS: FUROSEMIDE 40 MG TAB PO SCH ×2 (08:29→12:35)
[2016-11-22] MEDS: predniSONE 1 MG TAB PO SCH (08:29)
[2016-11-22] MEDS: metFORMIN HCL 500 MG TAB PO SCH (08:30)
[2016-11-22] MEDS: VERAPAMIL ER 180 MG TAB PO SCH ×2 (08:30→21:05)
[2016-11-22] MEDS: SALMETEROL IH SCH ×2 (10:15→23:34)
[2016-11-22] MEDS: FLUTICASONE IH SCH ×2 (10:15→23:34)
[2016-11-22] MEDS: ALBUTEROL IH IH PRN (10:16)
[2016-11-22] MEDS: INSULIN GLARGINE 100 UNITS/ML SYRINGE SC SCH ×2 (10:19→21:05)
--- NOTE | 2016-11-22 13:19 | HOSPPROG ---
Hospitalist Progress Note Assessment/Plan: * Acute gout - suspect LLE and RUE affected -restart colchicine -s/p high dose prednisone -resume allopurinol when acute gout resolved * LLE superficial thrombophlebitis * Sepsis - suspect inflammatory response to gout > infection -empiric IV meropenem -DC'd - cultures negative * Abd wall cellulitis/panniculitis with wound vac -IV Vanco through 11/19 - complete -reported pus in wound by wound RN -looked good on wound vac change * PICC line associated DVT (despite elevated INR) -remove PICC - abx complete picc out * Steroid dependent asthma/COPD -prednisone 6mg daily - consider wean off -advair * Acute on chronic diastolic CHF -s/p IV lasix * Afib -rate controlled on verapamil -chronic warfarin * CAD/stent * DM II -Lantus + metformin * 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 -continue anticoagulation -patient very hypercoagulable (multiple clots - as above) supratherapeutic INR- hold warfarin again today * Morbid obesity BMI 41 dispo: to snf in AM (11/23) after wound vac change Subjective: medically ready for dc; essentially refusing to leave today- "i'm just not ready" Objective: Vital Signs Temp Pulse Resp BP Pulse Ox 36.7 C 83 16 108/63 94 11/22/16 07:30 11/22/16 07:30 11/22/16 07:30 11/22/16 08:30 11/22/16 07:30 Laboratory Results 11/21/16 04:25 11/22/16 04:22 11/21/16 11/22/16 11/23/16 05:59 05:59 05:59 Intake Total 750 1700 Output Total 350 650 Balance 400 1050 PT 32.6 SEC (12.0-15.0) H 11/22/16 04:22 INR 3.13 (0.83-1.16) H 11/22/16 04:22 - Physical Exam Constitutional: no apparent distress, appears nourished Eyes: PERRL, anicteric sclera Ears, Nose, Mouth, Throat: moist mucous membranes, hearing normal Cardiovascular: regular rate and rhythym, no murmur, rub, or gallop Respiratory: no respiratory distress, no rales or rhonchi Gastrointestinal: normoactive bowel sounds, soft, non-tender abdomen Genitourinary: no bladder fullness, No bond in urethra Skin: warm, normal color Musculoskeletal: full muscle strength, no muscle tenderness Neurologic: AAOx3 ICD10 Worksheet Patient Problems: Problems Problem Status Onset Pain Acute Panniculitis Acute Peripheral neuropathy Acute Cellulitis Acute DKA (diabetic ketoacidoses) Acute Sepsis Acute Skin ulcer of abdomen Acute
[2016-11-22 14:49] LABS: INTERPRETATION See Comments
[2016-11-22 15:23] LABS: DILUTE RUSSELLS VIPER VENOM 1.3 ratio (0.0 - 1.1); INR 3.7; INTERPRETATION See Comments; PT 41.4 sec; PTT 32 sec (26 - 36)
[2016-11-22 20:45] LABS: POTASSIUM 4.1 mEq/L (3.5-5.2)
[2016-11-22] MEDS: ATORVASTATIN CALCIUM 40 MG TAB PO SCH (21:05)
[2016-11-23 05:25] LABS: INR 2.6 (0.83-1.16); PROTIME(PATIENT) 28.1 SEC (12.0-15.0)
[2016-11-23 05:30] LABS: POTASSIUM 3.7 mEq/L (3.5-5.2)
[2016-11-23 08:42] VITALS: BP 127/59; PULSE 85; RESP 18; TEMP 97.8; O2SAT 90
[2016-11-23] MEDS ORDERED: POTASSIUM CL 10 MEQ TAB PO ONE (08:57)
[2016-11-23] MEDS ORDERED: COLCHICINE 0.6 MG CAP/TAB PO SCH (09:00)
[2016-11-23] MEDS: predniSONE 1 MG TAB PO SCH (09:43)
[2016-11-23] MEDS: FUROSEMIDE 40 MG TAB PO SCH ×2 (09:44→13:49)
[2016-11-23] MEDS: PANTOPRAZOLE SODIUM 40 MG TAB PO SCH (09:45)
[2016-11-23] MEDS: oxyCODONE IR 5 MG TAB PO PRN (09:45)
[2016-11-23] MEDS: predniSONE 5 MG TAB PO SCH (09:46)
[2016-11-23] MEDS: VERAPAMIL ER 180 MG TAB PO SCH (09:47)
[2016-11-23] MEDS: INSULIN REGULAR HUMAN 100 UNIT/ML SC SCH ×2 (10:12→13:39)
[2016-11-23] MEDS: metFORMIN HCL 500 MG TAB PO SCH (10:15)
[2016-11-23] MEDS: INSULIN GLARGINE 100 UNITS/ML SYRINGE SC SCH (10:16)
[2016-11-23 10:18] LABS: DRVVT CONFIRM RATIO 0.5 ratio (0.0 - 1.1); PT MIX 1:1 13.9 sec; THROMBIN TIME 19 sec (15 - 23)
--- NOTE | 2016-11-23 11:42 | WOCRNPDOC ---
WOCRN Advanced Assessment Note - Skin Integrity Problem, Advanced Assess Pannus Dressing Type: Black Vac Foam (2 pieces removed), Hydrocolloid (Removed from 2 small wounds under drape, separate from wounds under vac tx), White Vac Foam (2 pieces removed), Wound Vac Dressing Description: Intact Exudate Amount: Scant Exudate Color: Reddish/Yellow Exudate Characteristic(s): Sanguinopurulent, Serosanguinous Integumentary Issue Intervention: Dressing Changed Addis Wound Tissue: Erythema, Swollen, Indurated Addis Wound Swelling: Mild Wound Bed Color: Red, Yellow Wound Bed Constitution: Granulation Tissue, Tunneling (in wound on R pannus, 6.5cm narrow tract at 3 o'clock; in L wound, 2.5cm tunnel at 3 o'clock), Adhered Slough Site Odor: None Site Measurement - Head-to-Toe Length X Width X Depth (cm): R pannus wound: 2.3cmx4.5cmx02.cm (w/ 6.5 cm tunnel at 3 o'clock). L pannus wound: 1cmx3.5lox2ok (w/ 2,5cm tunnel at 3 o'clock). 2 small superficial wounds midline: distal: 0.8cmx2.4cmxslough; proximal:o.5cmx0.6cmx0.1cm Skin Integrity Problem Comment: Wound assessed w/ Dr. Burgess from ID. Removed two , thin strips of white foam from tunnels in both wounds. In R pannus wound, very narrow 6.5 cm tunneling tract, too narrow to pack w/ even white foam at this time. Wound bed has adhered slough along margins (20%) w/ otherwise granular wound bed throughout (80%). There was some sanguinopurulent exudate noted on the cotton-tipped apllicator when I explored the tunnel; vac canister had very scant exudate in it, and foam dressing itself was not noted to be saturated upon removal. In L wound, well-adhered slough along medial margin (25% ), w/ granulation throughout remaining wound bed (75%). Tunnel at 3 'clock on the L pannus is also too narrow to pack at this point, and packing of foam too aggressively might keep the tunnel open. Black foam trimmed into a 1 cm wide strip at distal aspect, and packed into both tunnels just at the os, then bridged in continuous piece to midline. Addis-wound skin shows signs of contact dermatitis, w/ red, scaly lesions noted. Replicare hydrocolloid was used to cover these areas of irritation and protect skin from adhesive vac drape. Additionally, there are two small, slough-filled wounds in between the other two pannus wounds. The larger of the two, measuring 0.8cmx2.4cm, is slightly fluctuant. Both [facility] RN and Dr. Burgess attempted to determine if there was any exudate trapped under this necrotic tissue by pulling on it w/ forceps, but it was well-adhered. Applied Replicare hydrocolloid over this wound to facilitate autolysis of necrotic tissue. Remaining exposed periwound skin prepped and draped, 2 pieces of black foam applied to wound beds and bridged to midline, and vac set to suction at 125mmHg, w/ no leaks. Report given to tuber helper October.
--- NOTE | 2016-11-23 12:53 | PDIAF ---
- Diagnosis Diagnosis: abdominal wall wound, gout Code Status: Full Code - Medication Management Discharge Medications: Medications to Continue on Transfer Albuterol Sulfate [Proair Hfa] 2 puffs IH BID PRN 11/02/16 [Last Taken Unknown] Atorvastatin Calcium [Lipitor 40 mg (*)] 40 mg PO HS 11/02/16 [Last Taken Unknown] FLUTICASONE/SALMETEROL [ADVAIR HFA 230-21 MCG INHALER] 1 puffs IH BID 11/02/16 [ Last Taken Unknown] Insulin Glargine [Lantus 100 UNITS/ML (*)] 30 unit SC BID 11/02/16 [Last Taken Unknown] Insulin Lispro [Humalog] 0 - 15 unit SQ BIDAC PRN 11/02/16 [Last Taken Unknown] Lansoprazole [Prevacid] 30 mg PO BIDMEAL 11/02/16 [Last Taken Unknown] Verapamil ER [Calan SR/ER 180MG (*)] 180 mg PO BID 11/02/16 [Last Taken Unknown] metFORMIN HCL [Metformin HCl] 250 mg PO DAILY 11/02/16 [Last Taken Unknown] predniSONE 1 mg PO DAILY 11/02/16 [Last Taken Unknown] predniSONE 5 mg PO DAILY 11/02/16 [Last Taken Unknown] Acetaminophen [Tylenol 325mg (*)] 650 mg PO Q4HRS PRN #0 tab 11/09/16 [Last Taken Unknown] Calcium Carbonate/Vitamin D2 [Oyster Shell Calcium-Vit D Tab] 1 each PO DAILY [Last Taken Unknown] Furosemide [Lasix 40 MG (*)] 40 mg PO DAILY@12 11/17/16 [Last Taken Unknown] Furosemide [Lasix 40 MG (*)] 80 mg PO DAILY@08 11/17/16 [Last Taken Unknown] Warfarin Sodium [Coumadin 3MG (*)] 4.5 mg PO DAILY16 11/17/16 [Last Taken ] Colchicine [Colchicine (*)] 0.6 mg PO DAILY ea 11/23/16 [Last Taken Unknown] oxyCODONE IR [Oxycodone Ir (*)] 5 - 10 mg PO Q4 PRN #0 tab 11/23/16 [Last Taken Unknown] Discharge Medications: Refer to the Discharge Home Medication list for PRN reason. - Orders Services needed: Registered Nurse, Certified Induction Machine Setter, Physical Therapy, Occupational Therapy - Follow Up Care Current Providers and Referrals: Kathrine Cade MD [Primary Care Provider] - As per Instructions
--- NOTE | 2016-11-23 12:55 | HOSPPROG ---
Hospitalist Progress Note Assessment/Plan: * Acute gout - suspect LLE and RUE affected -restart colchicine -s/p high dose prednisone -resume allopurinol when acute gout resolved * LLE superficial thrombophlebitis * Sepsis - suspect inflammatory response to gout > infection -empiric IV meropenem -DC'd - cultures negative * Abd wall cellulitis/panniculitis with wound vac -IV Vanco through 11/19 - complete -reported pus in wound by wound RN -looked good on wound vac change * PICC line associated DVT (despite elevated INR) -remove PICC - abx complete picc out * Steroid dependent asthma/COPD -prednisone 6mg daily - consider wean off -advair * Acute on chronic diastolic CHF -s/p IV lasix * Afib -rate controlled on verapamil -chronic warfarin * CAD/stent * DM II -Lantus + metformin * 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 wound vac changed. still w gout sx Objective: Vital Signs Temp Pulse Resp BP Pulse Ox 36.6 C 85 18 127/59 H 90 L 11/23/16 08:00 11/23/16 08:00 11/23/16 08:00 11/23/16 09:47 11/23/16 08:00 Laboratory Results 11/21/16 04:25 11/23/16 04:52 11/22/16 11/23/16 11/24/16 05:59 05:59 05:59 Intake Total 1700 450 Output Total 650 2100 Balance 1050 -1650 PT 28.1 SEC (12.0-15.0) H 11/23/16 04:52 INR 2.60 (0.83-1.16) H 11/23/16 04:52 - Physical Exam Constitutional: no apparent distress, appears nourished Eyes: PERRL Ears, Nose, Mouth, Throat: moist mucous membranes, hearing normal Cardiovascular: regular rate and rhythym, no murmur, rub, or gallop Respiratory: no respiratory distress, no rales or rhonchi Gastrointestinal: normoactive bowel sounds, soft, non-tender abdomen Genitourinary: No bond in urethra Skin: warm, no induration Musculoskeletal: full muscle strength, no muscle tenderness Neurologic: AAOx3, sensation intact bilaterally ICD10 Worksheet Patient Problems: Problems Problem Status Onset Pain Acute Panniculitis Acute Peripheral neuropathy Acute Cellulitis Acute DKA (diabetic ketoacidoses) Acute Sepsis Acute Skin ulcer of abdomen Acute
--- NOTE | 2016-11-23 13:24 | GDS ---
[f rep st] DISCHARGE SUMMARY DISCHARGE DIAGNOSES: 1. Abdominal wound status post a course of antibiotics now with a wound VAC. 2. Acute gout. 3. Left leg and foot swelling felt secondary to gout. MRI on admission showing cellulitis. No shirley dence of abscess or deep tissue infection. Now resolved. 4. History of deep venous thrombosis with ultrasound showing likely chronic deep venous thrombosis while here. 5. Chronic obstructive pulmonary disease. 6. Diastolic congestive heart failure without exacerbation. 7. Type 2 diabetes. 8. Atrial fibrillation. 9. Obstructive sleep apnea. 10. Coronary artery disease with stent. 11. Morbid obesity. Please see admission history and physical by Dr. Perla Giordano. The patient was admitted during on the . She was seen by Infectious Disease as well as Surgery. Surgical intervention wa s not necessary. She completed a course of antibiotics with improvement. She had an ultrasound of her abdominal wall that showed no evidence of abscess. She had a white count that fell. She was af ebrile. On the day of discharge, the patient still had some gout pain but was otherwise doing well off oxyge n, off antibiotics. She is discharged to long-term facility with ongoing wound VAC care as we ll as physical rehabilitation. /[id number]/MODL
[2016-11-23] MEDS: FLUTICASONE IH SCH ×2 (13:39→14:04)
[2016-11-23] MEDS: SALMETEROL IH SCH ×2 (13:39→14:04)
[2016-11-23] MEDS: ALBUTEROL IH IH PRN (14:04)
[2016-11-23] MEDS ORDERED: ALBUTEROL 60 PUFFS/8 GM MDI IH PRN (14:11)
--- NOTE | 2016-11-27 08:46 | PQFORM ---
PHYSICIAN QUERY FORM Needs Your Response This query form is being sent to you to assure this patient record is coded properly. Please respond to the question below: TERRITORY ACCOUNT MANAGER QUESTION: Dr Giordano Sepsis is documented in the H/P as well as in the progress notes however it is not mentioned in the Discharge Summary. Did this patient have sepsis? ___ Yes _x__ No ___ Undetermined ___ Other (please specify ) Thank You Pallavi CARDOSO Sh[employer] Salesperson INSTRUCTIONS FOR RESPONSE: Answer question by clicking on the "Edit Document" button. Move cursor to area below the stars. When complete, hit "Save." Click on the "Sign" button, then click "Sign" again. Type in your PIN and hit "Enter." MTDD
== END 2016-11-23 15:37 | DRG 554 ==
LOC: EDUNIT# → EDBD → F3N 11:59
PROVIDERS: ADMIT Internal Medicine; ATTEND Internal Medicine
DX: M10.072 Idiopathic gout, left ankle and foot (principal); T82.868A Thrombosis due to vascular prosthetic devices, implants and grafts, initial encounter; I82.532 Chronic embolism and thrombosis of left popliteal vein; I50.32 Chronic diastolic (congestive) heart failure; E11.9 Type 2 diabetes mellitus without complications; I48.91 Unspecified atrial fibrillation; G47.33 Obstructive sleep apnea (adult) (pediatric); M79.3 Panniculitis, unspecified; I25.10 Atherosclerotic heart disease of native coronary artery without angina pectoris; Z95.5 Presence of coronary angioplasty implant and graft; Z86.718 Personal history of other venous thrombosis and embolism; J44.9 Chronic obstructive pulmonary disease, unspecified; Z99.81 Dependence on supplemental oxygen; R09.02 Hypoxemia; E66.01 Morbid (severe) obesity due to excess calories; Z68.41 Body mass index [BMI] 40.0-44.9, adult; Z79.52 Long term (current) use of systemic steroids
CPT/HCPCS: 81332-90; 81439-90; 81479-90; 83891-90; 83903-90; 83908-90; 85670-90; 96374; 97116-GP; 97161-GP; 97165-GO; 97530-GP; 97535-GO; A9585; G8978-GP-CK; G8979-GP-CJ; G8987-GO-CM; G8988-GO-CK; J1170; J1815; J1885; J2185; J2405; J2997; J3370

== ENCOUNTER 2016-12-21 10:34 | Inpatient (IN) | payer OTHER ==
[2016-12-21] MEDS ORDERED: ONDANSETRON DISINTEGRATING 4 MG TAB PO PRN (12:28)
[2016-12-21] MEDS ORDERED: ACETAMINOPHEN 325 MG TAB PO PRN (12:28)
[2016-12-21] MEDS ORDERED: ONDANSETRON 4 MG/2 ML VIAL IVP PRN (12:28)
[2016-12-21 12:54] LABS: % IMMATURE GRANULYOCYTES 0.4 % (0.0-1.1); ABSOLUTE IMMATURE GRANULOCYTES 0.03 10^3/uL (0.00-0.10); ADD DIFF? NO; ADD MORPH? NO; ADD SCAN? NO; ATYPICAL LYMPHOCYTE FLAG 0 (0-99); FRAGMENT RBC FLAG 0 (0-99); HEMATOCRIT 26.9 % (38.0-47.0); HEMOGLOBIN 8.3 g/dL (12.6-16.3); LEFT SHIFT FLG 0 (0-99); LIPEMIA HEMOLYSIS FLAG 80 (0-99); MEAN CELL HEMOGLOBIN 27.9 pg (27.9-34.1); MEAN CELL HEMOGLOBIN CONCENTR. 30.9 g/dL (32.4-36.7); MEAN CELL VOLUME 90.6 fL (81.5-99.8); MEAN PLATELET VOLUME 8.8 fL (8.7-11.7); PLATELET CLUMPS FLAG 0 (0-99); PLATELET COUNT 552 10^3/uL (150-400); RED BLOOD CELL COUNT 2.97 10^6/uL (4.18-5.33); RED CELL DISTRIBUTION WIDTH 17.9 % (11.5-15.2)
[2016-12-21 13:13] LABS: ANION GAP 10 mEq/L (8-16); CALCIUM 8.6 mg/dL (8.5-10.4); CARBON DIOXIDE 25 mEq/l (22-31); CHLORIDE 105 mEq/L (97-110); CREATININE 2.1 mg/dL (0.6-1.0); GLOMERULAR FILTRATION RATE 23; GLUCOSE 95 mg/dL (70-100); POTASSIUM 3.4 mEq/L (3.5-5.2); SODIUM 140 mEq/L (134-144)
--- NOTE | 2016-12-21 14:08 | WOCRNPDOC ---
WOCRN Advanced Assessment Note - Skin Integrity Problem, Advanced Assess Right Lower Abdomen Dressing Type: Iodoform Packing Exudate Amount: Scant Exudate Color: Reddish/Yellow Exudate Characteristic(s): Cloudy, Serosanguinous Integumentary Issue Intervention: Dressing Changed Addis Wound Tissue: Erythema, Swollen, Indurated, Denuded Addis Wound Swelling: Mild Wound Bed Color: Red, Yellow Wound Bed Constitution: Smooth Tissue, Adhered Slough Wound Edges: Epithelizing Site Odor: Slight Site Measurement - Head-to-Toe Length X Width X Depth (cm): Proximal: [id number] (slough on lateral aspect). Distal: 1cm0.8cmx0.1cm (100% slough) Skin Integrity Problem Comment: Patient is well-known to wound care and infectious disease physician; wounds assessed with Drs. Reddy and Patrick at the bedside. Wound w/ packing noted on R abdomen, which probes to a depth of ~ 2cm, no tunneling. There is adhered slough laterally, no purulence or foul odor. There is also a slough-filled superficial wound distal to this, as well as 2 smaller, pinpoint slough-filled superficial wounds. Both erythema and induration noted periwound, w/ no tenderness or c/o pain when palpated. During patient's previous hospitalization, this surrounding tissue was similar in appearance. Packed the proximal wound w/ Cutimed Sorbact packing, and covered w / Allevyn foam dressing. Distal, slough-filled, superficial wounds covered w/ Replicare hydrocolloid to facilitate autolysis. Wound care will follow up with patient on Sunday 12/24 to monitor progress of wounds. Report given to road engineerLATISHA Henry. Left Lower Abdomen Dressing Type: Black Vac Foam, Wound Vac Dressing Description: Intact Exudate Amount: Scant Exudate Color: Reddish/Yellow Exudate Characteristic(s): Serosanguinous Integumentary Issue Intervention: Dressing Changed (wound vac removed) Addis Wound Tissue: Erythema, Raw, Swollen, Indurated, Denuded, Shiny Addis Wound Swelling: Moderate Wound Bed Color: Red, Yellow Wound Bed Constitution: Granulation Tissue, Adhered Slough Wound Edges: Epithelizing Site Odor: Slight Site Measurement - Head-to-Toe Length X Width X Depth (cm): midline: [id number] (w/ 3 cm tunnel at 9 o'clock). L abdomen: [id number] Skin Integrity Problem Comment: When patient was admitted to unit, both of these wounds were covered by a wound vac w/ black foam. This was removed to better assess the site. Midline, there is a small wound w/ adhered slough on the distal rim of the wound opening; this wound tunnels laterally and posteriorly 3cm at 9 o'clock. Periwound tissue palpated to determine if there was a pocket of purulence in this wound, but none was found. The wound on the L abdomen appears superficial, 50% granulation tissue and 50% adhered slough. No pururlence noted to this site either. There was report of "green drainage" in patient's admitting paperwork, but none was noted in the vac canister or in the wound. There is significant periwound erythema and induration, w/ swelling to surrounding skin. Skin is raw, shiny, and denuded, indicative of ongoing irritation from wound vac drape and moisture. I am uncertain if this erythema and induration is part of an infectious process; patient's skin was similarly denuded and red during previous hospitalization. For now, wound vac dc'd to allow for easier assessment of wounds and to give patient's skin a break from the vac drape. Iodofoam placed in wound on L abdomen to debride the adhered slough. Midline wound packed w/ Cutimed Sorbact. Wound care will re-assess on Sunday 12/24 to determine ongoing wound care needs. Pannus Dressing Type: Open to Air Exudate Amount: None Exudate Characteristic(s): None Skin Integrity Problem Comment: Raw, denuded skin throughout patient's pannus and groin, w/ strong,yeast-like odor noted. This appears to be intertriginous dermatitis, r/t moisture and friction. Supplied road engineerLATISHA Henry w/ Interdry sheets to help absorb moisture and protect against friction.
[2016-12-21] MEDS ORDERED: D50W 25 GM/50 ML SYR IVP PRN (14:13)
[2016-12-21] MEDS ORDERED: NS 1,000 ML IV SCH (14:15)
[2016-12-21] MEDS ORDERED: ALBUTEROL INH PREPACK MDI TAKEHOME PRN (14:48)
[2016-12-21] MEDS ORDERED: oxyCODONE IR 5 MG TAB PO PRN (14:48)
--- NOTE | 2016-12-21 14:57 | GHP ---
[f rep st] HISTORY AND PHYSICAL DATE OF ADMISSION: 12/21/2016 HISTORY OF PRESENT ILLNESS: The patient is a 76-year-old female with diabetes, chronic kidney disease and chronic abdominal wound who was recently here in the hospital for a couple of weeks earlier in the month, who had nonoperative management of her wound with wound VAC and a course of antibiotics. She was sent to a local correction facility. The physician called me today concerned about her change in mental status, as well as increasing erythema in the wound. When I see the patient, she is alert and talkative and seems perhaps a bit more tangential than her baseline. Dr. Jennifer Reddy, who knows the patient well, states she is clearly not herself. I discussed this with Dr. Reddy. The patient has a mild headache. Denies urgency, frequency, dysuria, diarrhea, chest pain, shortness of breath, productive cough or sputum. She says her left ankle hurts and she did have a gout flare during her last hospitalization. There was report from outpatient labs of an INR of being 6, but this is handwritten. On another lab sheet, her creatinine a couple of days ago was 1.5 which is somewhere in the neighborhood of her baseline. She says she has been eating poorly, drinking water okay. If you look at our labs, it looks like her baseline creatinine about 1.1. No fever or chills. She states that her abdominal wound is painful but no more painful than it has been. Really her predominant complaints are her left ankle. REVIEW OF SYSTEMS: Complete 10-point review of systems conducted, negative except as noted in the HPI. PAST MEDICAL HISTORY: 1. Chronic abdominal wound. 2. Type 2 diabetes. Last hemoglobin A1c of 7.3 a couple days ago. 3. Diastolic congestive heart failure. 4. COPD on 2 L of oxygen at night. 5. Atrial fibrillation. 6. DVT x2 in the left leg. 7. KERVIN. 8. Coronary artery disease, status post stent. 9. Morbid obesity with BMI 44. 10. Gout. 11. Abdominal wound, sounds like it is external to the fascia with an abdominal wall cellulitis and sepsis. Review regarding this abdominal wound, she had a biopsy in April 2016 showing ulceration with moderate chronic and acute inflammation. It sounds like her problem with her wound started in July 2016 when she had necrotic tissue wounds that were managed with operative debridement and wound VAC placement by Dr. Turner Seay. I am unable to see an operative report. ALLERGIES: Iodine, penicillins, Keflex and clindamycin. HOME MEDICATIONS: Tylenol, albuterol, atorvastatin, calcium carbonate, colchicine, fluticasone, furosemide, insulin glargine, lispro, lansoprazole, metformin, oxycodone, prednisone 6 mg, verapamil and warfarin. SOCIAL HISTORY: She [facility]. She is currently in a SNF. Nonsmoker. No alcohol. FAMILY HISTORY: Reviewed and unremarkable. PHYSICAL EXAMINATION: VITAL SIGNS: Temperature 36.9, blood pressure 118/59, pulse 84, breathing 18 times a minute, 96% on 2 L. GENERAL: No acute distress. HEENT: Sclerae anicteric. Oropharynx clear. Mucous membranes are moist. NECK: Supple without lymphadenopathy or JVD. LUNGS: Clear to auscultation anterolaterally and posteriorly. HEART: S1, S2. Not tachycardic. ABDOMEN: Soft, nontender, nondistended. Her lower quadrant abdominal wound shows surrounding erythema that is more consistent with abrasion and skin irritation from wound VAC and tape as opposed to a cellulitis. There was some purulence at the mouth of some of these wounds. Per the wound care nurse there not as tunneling as they have been and they actually look better according to the wound care nurse who knew her well earlier in her hospital stay. EXTREMITIES: Lower extremities show trace edema bilaterally. Her left ankle is without erythema or warmth. There is no evidence of a joint effusion. NEUROLOGIC: Grossly nonfocal. The patient is perhaps a bit encephalopathic but barely. LABORATORY DATA: Sodium 140, potassium 3.4, chloride 105, bicarb 25, BUN 76, creatinine 2.1. Glucose 95. This is greater than her baseline creatinine. White count 8, hematocrit 26.9, somewhere around her baseline. Platelets are 550 , also her baseline. INR is pending. UA is pending. Chest x-ray is pending. Ankle film is pending. I have discussed the case with Dr. Jennifer Reddy. ASSESSMENT/PLAN: This is a 76-year-old female with chronic abdominal wound and multiple other comorbidities who presents with possible encephalopathy, as well as a chronic abdominal wound. 1. Chronic abdominal wound. Dr. Reddy has seen these. I have seen these. It does not appear to have an acute infection or superimposed infection. We will continue local wound care. Not start antibiotics. 2. Acute kidney injury. The patient has acute kidney injury which I suspect is prerenal. I will give her IV fluids. This may be the etiology of her encephalopathy. 3. Coagulopathy. Her INR was apparently 6. I have sent a stat INR and await for that. She does have a mild headache but I think we can forego stat noncontrast CT given no focality on her exam. 4. Mental status changes. I will check a chest x-ray, urinalysis and, for completeness' sake although I have low suspicion for urinary tract infection at this point, the same goes for pneumonia. 5. Ankle pain. I will check an ankle film. She is a high risk for fracture given her chronic steroids. 6. Chronic steroid use. We will continue prednisone 6 mg. 7. Disposition: Inpatient status. 8. Prophylaxis. Therapeutically actually high risk given history of venous thromboembolism. /[id number]/MODL MTDD
[2016-12-21] MEDS ORDERED: ALBUTEROL 60 PUFFS/8 GM MDI IH PRN (15:02)
--- NOTE | 2016-12-21 15:52 | PCMIDPN ---
Assessment/Plan: # Mild delirium although oriented x 4. Very tangential and tremulous. Possibly due to volume depletion/ARF # Chronic abdominal wounds on pannus of unclear etiology, course complicated by Panniculitis in October 2016 now resolved. Exam today without signs of infection. WBC normal, AF. Further, tracking of wound much less (prior 7cm today 3 cm). She does have some surrounding skin irritation from wound vac and plan to give her a vacation from wound vacs. See specifics of wound care in wound care nurse note. # Allergies to abx/intolerances PCN -->severe itching Cephlexin -> severe itching CLindamycin > rash witnessed by me Subjective: 76 yo woman well known to me with DM, prior chronic steroids with multiple ulcers on her pannus of unclear etiology, course complicated by severe panniculitis earlier this year. Also recent admit for gout R ankle. Today patient states she was forced to come to hospital because the SNF felt she was confused. Objective: Vital Signs Temp Pulse Resp BP Pulse Ox 36.9 C 84 18 118/59 L 96 12/21/16 12:13 12/21/16 12:13 12/21/16 12:13 12/21/16 12:13 12/21/16 12:13 Laboratory Results 12/21/16 12:40 12/21/16 12:40 - Physical Exam General Appearance: alert, no apparent distress Respiratory: No accessory muscle use Abdomen: other (3 small wounds R, midline and L on pannus with surrounding irritation most c/w with contact dermatitis, no erythema. L wound with significant adherent slough not purulence. See measurements of wound in wound RN note, we examined patient together) Pelvic Exam: No bond Skin: pallor, No rash Neuro/Psych: alert, oriented x 3, cognition abnormalities ICD10 Worksheet Patient Problems: Problems Problem Status Onset Cellulitis Acute DKA (diabetic ketoacidoses) Acute Pain Acute Panniculitis Acute Peripheral neuropathy Acute Sepsis Acute Skin ulcer of abdomen Acute
[2016-12-21 16:33] LABS: INR 4.96 (0.83-1.16); PROTIME(PATIENT) 47.2 SEC (12.0-15.0)
[2016-12-21] MEDS: INSULIN LISPRO 100 UNIT/ML SC SCH ×2 (17:17)
[2016-12-21] MEDS ORDERED: NON-FORMULARY NEW DRUG (Insulin Lispro [Humalog] 0 UNIT) SQ SCH (18:00)
[2016-12-21] MEDS: VERAPAMIL ER 180 MG TAB PO SCH (20:34)
[2016-12-21] MEDS: ATORVASTATIN CALCIUM 40 MG TAB PO SCH (20:35)
[2016-12-21] MEDS: FLUTICASONE IH SCH (20:35)
[2016-12-21] MEDS: morphINE SR 15 MG TAB PO SCH ×2 (20:35→20:45)
[2016-12-21] MEDS: SALMETEROL IH SCH (20:35)
[2016-12-21] MEDS: ALBUTEROL 200 PUFFS/18 GM MDI IH PRN (20:40)
[2016-12-21] MEDS: INSULIN GLARGINE 100 UNITS/ML SYRINGE SC SCH (20:45)
[2016-12-21] MEDS ORDERED: NON-FORMULARY NEW DRUG (Fluticasone/Salmeterol [Advair Hfa 230-21 Mcg Inhaler] 1 PUFFS) IH SCH (21:00)
[2016-12-21 21:58] LABS: COLOR YELLOW; LEUKOCYTE ESTERASE,URINE TRACE (NEGATIVE); NITRITE,URINE NEGATIVE (NEGATIVE)
[2016-12-21 22:47] LABS: MUCUS TRACE /lpf (NONE-1+)
[2016-12-22 05:11] LABS: % IMMATURE GRANULYOCYTES 0.3 % (0.0-1.1); ABSOLUTE IMMATURE GRANULOCYTES 0.02 10^3/uL (0.00-0.10); ADD DIFF? NO; ADD MORPH? NO; ADD SCAN? NO; ATYPICAL LYMPHOCYTE FLAG 0 (0-99); FRAGMENT RBC FLAG 0 (0-99); HEMATOCRIT 26.4 % (38.0-47.0); HEMOGLOBIN 7.9 g/dL (12.6-16.3); LEFT SHIFT FLG 0 (0-99); LIPEMIA HEMOLYSIS FLAG 70 (0-99); MEAN CELL HEMOGLOBIN 27.9 pg (27.9-34.1); MEAN CELL HEMOGLOBIN CONCENTR. 29.9 g/dL (32.4-36.7); MEAN CELL VOLUME 93.3 fL (81.5-99.8); MEAN PLATELET VOLUME 8.9 fL (8.7-11.7); PLATELET CLUMPS FLAG 20 (0-99); PLATELET COUNT 530 10^3/uL (150-400); RED BLOOD CELL COUNT 2.83 10^6/uL (4.18-5.33); RED CELL DISTRIBUTION WIDTH 17.8 % (11.5-15.2)
[2016-12-22 05:32] LABS: ANION GAP 10 mEq/L (8-16); CALCIUM 8.3 mg/dL (8.5-10.4); CARBON DIOXIDE 25 mEq/l (22-31); CHLORIDE 108 mEq/L (97-110); CREATININE 1.9 mg/dL (0.6-1.0); GLOMERULAR FILTRATION RATE 26; GLUCOSE 53 mg/dL (70-100); POTASSIUM 3.6 mEq/L (3.5-5.2); SODIUM 143 mEq/L (134-144)
[2016-12-22 05:49] LABS: INR 5.4 (0.83-1.16); PROTIME(PATIENT) 50.5 SEC (12.0-15.0)
[2016-12-22] MEDS: ALBUTEROL 200 PUFFS/18 GM MDI IH PRN (06:14)
[2016-12-22] MEDS ORDERED: PHYTONADIONE 2.5 MG/2.5 ML ORAL UDL PO ONE (06:28)
[2016-12-22] MEDS: FAMOTIDINE 20 MG TAB PO SCH (08:41)
[2016-12-22] MEDS: VERAPAMIL ER 180 MG TAB PO SCH ×2 (08:41→21:18)
[2016-12-22] MEDS: morphINE SR 15 MG TAB PO SCH ×2 (08:41→21:18)
[2016-12-22] MEDS: ALLOPURINOL 100 MG TAB PO SCH (08:42)
[2016-12-22] MEDS: INSULIN GLARGINE 100 UNITS/ML SYRINGE SC SCH ×3 (08:42→21:58)
[2016-12-22] MEDS: CALCIUM CARB W/VIT D 500 MG TAB PO SCH (08:42)
[2016-12-22] MEDS: INSULIN LISPRO 100 UNIT/ML SC SCH ×6 (08:43→18:23)
[2016-12-22] MEDS: SALMETEROL IH SCH ×2 (08:53→21:20)
[2016-12-22] MEDS: FLUTICASONE IH SCH ×2 (08:53→21:20)
[2016-12-22] MEDS ORDERED: [UNRECOGNIZED DRUG - OTHER] PO SCH (09:00)
[2016-12-22] MEDS ORDERED: CALCIUM CARBONATE PO SCH (09:00)
[2016-12-22] MEDS ORDERED: ENOXAPARIN 40 MG/0.4 ML SYR SC SCH (09:00)
[2016-12-22] MEDS ORDERED: VITAMIN D2 PO SCH (09:00)
[2016-12-22] MEDS ORDERED: Herbals/Supplements -Info Only PO SCH (09:00)
--- NOTE | 2016-12-22 15:02 | HOSPPROG ---
Hospitalist Progress Note Assessment/Plan: 76 y/o F PMH T2DM, htn, CKD, permanent AF on OAC, DCHF/HFpEF, morbid obesity BMI 39, COPD, transferred from [facility] for mental status changes and ARMIN. Has chronic abdominal wounds for which wound VAC is in place and was also treated with course of abx. #. Chronic abdominal wounds: Dr. Reddy has examined and feels that tracking of wound much, AF/normal WBC, erythema around wounds like from wound VAC and so she is on "vacation" from that #. ARMIN/CKD: likely from poor PO intake (she reports she has been drinking but appetite is diminished hold Lasix and only dose when weight increases/peripheral edema or worsening shortness of breath #. anemia: like of CD at her typical baseline #. AF: on rate control with Verapamil and AC with Coumadin #. coagulopathy: no signs of active bleeding hold Coumadin/ given one dose of Phytonadione repeat INR in AM #. DM: on insulin #. CAD: PCI to dRCA in 2004 on Atorvastatin BP appears controlled #. nocturnal hypoxia: on O2 #. Dispo: possible D/C tomorrow if Cr improved will have CM discuss placement back to [facility] Subjective: Reports stress recently due to rehab situation. No pain currently. Objective: Vital Signs Temp Pulse Resp BP Pulse Ox 98.4 F 70 18 113/60 93 12/22/16 12:00 12/22/16 12:00 12/22/16 12:00 12/22/16 12:00 12/22/16 12:00 Laboratory Results 12/22/16 04:56 12/22/16 04:56 12/21/16 12/22/16 12/23/16 05:59 05:59 05:59 Intake Total 1248 Balance 1248 PT 50.5 SEC (12.0-15.0) H 12/22/16 04:56 INR 5.40 (0.83-1.16) H* 12/22/16 04:56 - Physical Exam Constitutional: no apparent distress Eyes: anicteric sclera Ears, Nose, Mouth, Throat: moist mucous membranes, hearing normal Cardiovascular: regular rate and rhythym, no murmur, rub, or gallop Respiratory: no respiratory distress, no rales or rhonchi Neurologic: AAOx3 Psychiatric: interacting appropriately, anxious ICD10 Worksheet Patient Problems: Problems Problem Status Onset Cellulitis Acute DKA (diabetic ketoacidoses) Acute Pain Acute Panniculitis Acute Peripheral neuropathy Acute Sepsis Acute Skin ulcer of abdomen Acute
[2016-12-22] MEDS: ATORVASTATIN CALCIUM 40 MG TAB PO SCH (21:18)
[2016-12-23] MEDS: ALBUTEROL 200 PUFFS/18 GM MDI IH PRN ×2 (02:34→12:07)
[2016-12-23 05:26] LABS: % IMMATURE GRANULYOCYTES 0.4 % (0.0-1.1); ABSOLUTE IMMATURE GRANULOCYTES 0.03 10^3/uL (0.00-0.10); ADD DIFF? NO; ADD MORPH? NO; ADD SCAN? NO; ATYPICAL LYMPHOCYTE FLAG 10 (0-99); FRAGMENT RBC FLAG 0 (0-99); HEMATOCRIT 24.7 % (38.0-47.0); HEMOGLOBIN 7.4 g/dL (12.6-16.3); LEFT SHIFT FLG 0 (0-99); LIPEMIA HEMOLYSIS FLAG 80 (0-99); MEAN CELL HEMOGLOBIN 28.1 pg (27.9-34.1); MEAN CELL VOLUME 93.9 fL (81.5-99.8); MEAN PLATELET VOLUME 9.1 fL (8.7-11.7); PLATELET CLUMPS FLAG 0 (0-99); PLATELET COUNT 508 10^3/uL (150-400); RED BLOOD CELL COUNT 2.63 10^6/uL (4.18-5.33); RED CELL DISTRIBUTION WIDTH 17.8 % (11.5-15.2)
[2016-12-23 05:41] LABS: INR 2.05 (0.83-1.16); PROTIME(PATIENT) 23.3 SEC (12.0-15.0)
[2016-12-23 06:01] LABS: ANION GAP 9 mEq/L (8-16); CALCIUM 8.2 mg/dL (8.5-10.4); CARBON DIOXIDE 23 mEq/l (22-31); CHLORIDE 108 mEq/L (97-110); CREATININE 1.6 mg/dL (0.6-1.0); GLOMERULAR FILTRATION RATE 31; GLUCOSE 53 mg/dL (70-100); SODIUM 140 mEq/L (134-144)
[2016-12-23] MEDS: INSULIN LISPRO 100 UNIT/ML SC SCH ×4 (09:50→14:12)
[2016-12-23] MEDS: CALCIUM CARB W/VIT D 500 MG TAB PO SCH (10:06)
[2016-12-23] MEDS: ALLOPURINOL 100 MG TAB PO SCH (10:06)
[2016-12-23] MEDS: FAMOTIDINE 20 MG TAB PO SCH (10:06)
[2016-12-23] MEDS: VERAPAMIL ER 180 MG TAB PO SCH (10:06)
[2016-12-23] MEDS: morphINE SR 15 MG TAB PO SCH (10:06)
[2016-12-23] MEDS: SALMETEROL IH SCH (10:08)
[2016-12-23] MEDS: FLUTICASONE IH SCH (10:08)
[2016-12-23] MEDS: INSULIN GLARGINE 100 UNITS/ML SYRINGE SC SCH (10:33)
[2016-12-23 11:25] VITALS: BP 137/73; RESP 18; TEMP 98.2
[2016-12-23 12:15] VITALS: PULSE 84; O2SAT 94
--- NOTE | 2016-12-23 13:51 | HOSPPROG ---
Hospitalist Progress Note Assessment/Plan: 76 y/o F PMH T2DM, htn, CKD, permanent AF on OAC, DCHF/HFpEF, obesity BMI 39, COPD, transferred from [facility] for mental status changes and ARMIN. Has chronic abdominal wounds for which wound VAC is in place and was also treated with course of abx. #. Chronic abdominal wounds: Dr. Reddy has examined and feels that tracking of wound much, AF/normal WBC, erythema around wounds like from wound VAC and so she is on "vacation" from that can resume it on day of discharge which should be Saturday #. ARMIN/CKD: likely from poor PO intake (she reports she has been drinking but appetite is diminished) hold Lasix/ will resume lower dose tomorrow previous Cr from last admit 1.1 and today 1.6 #. DCHF: last echo from 11/05 reviewed which shows DCHF changing Lasix from 80 daily to 40 daily should have follow up labs after D/C pt advised to have daily weights #. anemia: like of CD at her typical baseline but will follow #. AF: permanent/ on rate control with Verapamil and AC with Coumadin #. coagulopathy: INR 5 on day of admission/no signs of active bleeding/ given 1 dose of Vit K INR today 2 resume Warfarin repeat INR in AM #. DM: on insulin #. CAD: PCI to dRCA in 2004 on Atorvastatin BP appears controlled #. nocturnal hypoxia: on O2 #. Dispo: [facility] has no bed for her today she may D/C back to them in AM wound VAC placement here or at SNF prior to d/c Subjective: Reports breathing feels stable. She feels upset that there is no bed for her at [facility]. Objective: Vital Signs Temp Pulse Resp BP Pulse Ox 98.2 F 84 18 137/73 H 94 12/23/16 11:23 12/23/16 12:10 12/23/16 12:10 12/23/16 11:23 12/23/16 12:10 Laboratory Results 12/23/16 05:02 12/23/16 05:02 12/22/16 12/23/16 12/24/16 05:59 05:59 05:59 Intake Total 1248 1400 Balance 1248 1400 PT 23.3 SEC (12.0-15.0) H D 12/23/16 05:02 INR 2.05 (0.83-1.16) H 12/23/16 05:02 - Physical Exam Constitutional: no apparent distress, appears nourished Eyes: PERRL, pale conjunctiva Cardiovascular: systolic murmur, irregularly irregular Respiratory: no respiratory distress, expiratory wheeze Skin: warm, erythema, other (1-2+ edema) Neurologic: AAOx3 Psychiatric: interacting appropriately, anxious ICD10 Worksheet Patient Problems: Problems Problem Status Onset DKA (diabetic ketoacidoses) Acute Cellulitis Acute Skin ulcer of abdomen Acute Sepsis Acute Panniculitis Acute Pain Acute Peripheral neuropathy Acute
--- NOTE | 2016-12-23 15:22 | PDIAF ---
- Diagnosis Code Status: Full Code - Medication Management Discharge Medications: Medications to Continue on Transfer Albuterol Sulfate [Proair Hfa] 2 puffs IH BID PRN 11/02/16 [Last Taken Unknown] Atorvastatin Calcium [Lipitor 40 mg (*)] 40 mg PO HS 11/02/16 [Last Taken ] FLUTICASONE/SALMETEROL [ADVAIR HFA 230-21 MCG INHALER] 1 puffs IH BID 11/02/16 [ Last Taken 12/21/16] Insulin Glargine [Lantus 100 UNITS/ML (*)] 30 unit SC BID 11/02/16 [Last Taken 12/21/16] Insulin Lispro [Humalog] 0 - 8 unit SQ TIDMEAL 11/02/16 [Last Taken Unknown] Verapamil ER [Calan SR/ER 180MG (*)] 180 mg PO BID 11/02/16 [Last Taken 12/21/16 ] metFORMIN HCL [Metformin HCl] 250 mg PO DAILY 11/02/16 [Last Taken 12/21/16] Acetaminophen [Tylenol 325mg (*)] 650 mg PO Q4HRS PRN #0 tab 11/09/16 [Last Taken Unknown] Calcium Carbonate/Vitamin D2 [Oyster Shell Calcium-Vit D Tab] 1 each PO DAILY [Last Taken 12/21/16] oxyCODONE IR [Oxycodone Ir (*)] 5 - 10 mg PO Q4 PRN #0 tab 11/23/16 [Last Taken Unknown] Allopurinol [Allopurinol 100 MG (*)] 100 mg PO DAILY 12/21/16 [Last Taken ] Herbals/Supplements -Info Only 1 ea PO DAILY 12/21/16 [Last Taken Unknown] Morphine Sulfate [Morphine Sulfate ER] 15 mg PO BID 12/21/16 [Last Taken ] Ranitidine HCl [Zantac] 150 mg PO DAILY 12/21/16 [Last Taken 12/21/16] Sulfamethox/Tmp 800/160 mg [Bactrim DS] 1 tab PO BID 12/21/16 [Last Taken ] Warfarin Sodium [Coumadin 4MG (*)] 4 mg PO DAILY16 12/22/16 [Last Taken 12/17/16 ] Furosemide [Lasix 40 MG (*)] 40 mg PO DAILY #0 tab 12/23/16 [Last Taken Unknown] Insulin Lispro [humALOG LISPRO 100 units/ml (*)] 0 unit SC TIDMEAL #0 unit 12/23 [Last Taken Unknown] Discharge Medications: Refer to the Discharge Home Medication list for PRN reason. - Orders Services needed: Registered Nurse, Physical Therapy, Occupational Therapy Oxygen: prn Diet Recommendation: sodium restricted Diet Texture: Regular Texture Diet Weigh Patient: daily - Labs/Radiology BMP Date: 12/28/16 PT/INR Date: 12/28/16 - Follow Up Care Current Providers and Referrals: Patient,NotPresent [Unknown] -
[2016-12-23] MEDS ORDERED: WARFARIN SODIUM 4 MG TAB PO ONE (16:00)
[2016-12-24] MEDS ORDERED: FUROSEMIDE 40 MG TAB PO SCH (09:00)
--- NOTE | 2016-12-25 13:33 | GDS ---
[f rep st] DISCHARGE SUMMARY DISCHARGE DIAGNOSES: 1. Altered mental status likely related to acute kidney injury resolved at time of discharge. 2. Acute kidney injury likely due to poor p.o. intake with improvement of serum creatinine to near her baseline by time of discharge. 3. Chronic diastolic heart failure. 4. Chronic abdominal wounds seen by Dr. Reddy in this admission. 5. Anemia. 6. Permanent atrial fibrillation. 7. Remote coronary artery disease. 8. Type 2 diabetes mellitus. 9. Nocturnal hypoxia, on supplemental oxygen. PROCEDURES: 1. Right kidney go back up to problems seen after the last problem. 2. A history of gout. PROCEDURES: 1. 12/21/2016 ankle x-ray. 2. 12/21/2016, chest x-ray. CONSULTATIONS: 1. Jennifer Reddy MDof infectious Disease. 2. Wound care. HISTORY OF PRESENT ILLNESS: Please see dictated H and P by Dr. Ayush Nguyen for complete details. In brief, the patient is a 76-year-old female with a history of diabetes, chronic kidney disease a nd chronic abdominal wounds who was in the hospital a few weeks back for the abdominal wounds. She was sent to rehab at [facility] [place] for wound VAC management and to finish a course of antibiotics. She was sent over from [place] at [facility] due to some acute mental status change s as well as concern of worsening erythema of her wound. HOSPITAL COURSE BY PROBLEM: 1. Chronic abdominal wounds. Dr. Reddy has examined and feels that tracking of wound is much bett er. She is afebrile with normal white count. She had put her on a "vacation from her wound VAC whi le she was admitted due to erythema from the wound VAC. This can be reapplied upon her return to [facility] [place]. 2. Acute kidney injury with chronic kidney disease. Her baseline creatinine is anywhere between 1. 1 to 1.5. She reports a very diminished appetite. Though she reports she was drinking fluids, her creatinine upon arrival was 2. Her diuretics were held, and she was hydrated. By day of discharge, she was back to 1.6. Our plan is that she have a repeat basic metabolic panel in approximately 5 d ays' time. [facility] may manage her diuretics based on her lab value s. 3. Diastolic congestive heart failure. She has been on daily Lasix of 80 mg. During her hospital stay, this was held. She will be discharged on 40 mg daily. She is advised to have daily weights arnold hyman at . 4. Coagulopathy. INR on day of admission was 5. Her warfarin was held. An INR on day of discharg e was 2. She is being discharged back on her home regimen of warfarin. She is to have INR drawn in 5 days' time. 5. Type 2 diabetes mellitus. Her home insulin regimen was continued. PHYSICAL EXAM: VITAL SIGNS: On day of discharge, blood pressure 137/73, heart rate 83, respiration s 18, O2 saturation 96% on 2 L/min. GENERAL: She is a pleasant female in no apparent distress. EY ES: PERRL. HEART: Irregularly irregular. LUNGS: Clear. ABDOMEN: Obese, nontender. SKIN: Wit h 1+ edema present, INR 2.05. CBC with WBC 7.54, hemoglobin 7.4, hematocrit 24.7, platelet count 50 8, BMP with sodium 140, potassium 4, chloride 108, CO2 23, BUN 57, creatinine 1.6, glucose of 113. RESULTS PENDING: None. DIET: Cardiac and diabetic diet recommended. ACTIVITY: Per rehab facility. DISCHARGE MEDICATIONS: Please see med reconciliation for complete details. FOLLOWUP INSTRUCTIONS: 1. Follow up labs including BMP, INR and CBC in 1 week's time. 2. Follow up with Dr. Reddy as scheduled. 3. Wound care instructions per discharge. Please note that greater than 30 minutes was spent on discharge and coordination of care. /[id number]/MODL
== END 2016-12-23 17:29 | DRG 683 ==
LOC: F3E 11:56 → PREOBSVTOIN 11:58
PROVIDERS: ADMIT Family Medicine; ATTEND Family Medicine
DX: N17.9 Acute kidney failure, unspecified (principal); R41.82 Altered mental status, unspecified; E11.22 Type 2 diabetes mellitus with diabetic chronic kidney disease; N18.9 Chronic kidney disease, unspecified; I50.32 Chronic diastolic (congestive) heart failure; I48.2 Chronic atrial fibrillation; D63.1 Anemia in chronic kidney disease; J44.9 Chronic obstructive pulmonary disease, unspecified; I25.10 Atherosclerotic heart disease of native coronary artery without angina pectoris; M10.9 Gout, unspecified; E66.01 Morbid (severe) obesity due to excess calories; Z68.39 Body mass index [BMI] 39.0-39.9, adult; Z79.4 Long term (current) use of insulin; Z79.01 Long term (current) use of anticoagulants
CPT/HCPCS: 97161-GP; 97166-GO; G8978-GP-CJ; G8979-GP-CI; G8987-GO-CL; G8988-GO-CJ; J1650; J1815